=== PATIENT | female | born 1965 | race Caucasian/White ===

== ENCOUNTER 2021-10-19 09:42 | Emergency (ER) | payer OTHER ==
--- OUTSIDE RECORDS SUMMARY | 2021-10-19 09:57 | XMS REPORT | Continuity of Care Document ---
:1965 Author Organization [facility] t Address [address] [place] [address] Care Team Providers Name Role Phone AVILAAndrei Primary Care Physician Unavailable JAEL Attending Clinician Unavailable BRIGID Attending Clinician Unavailable Brigid ROSENTHAL Attending Clinician Pob, Lab Main Attending Clinician Unavailable Timmy Atwood DO Attending Clinician Doctor Unassigned, Name Attending Clinician Unavailable Vtc-Lab Attending Clinician Unavailable Mary Velez Attending Clinician Unavailable Blaire Attending Clinician Unavailable RODNEY ALCANTAR Attending Clinician Unavailable Joana SIMON Attending Clinician Unavailable Mary Velez Admitting Clinician Unavailable JAMEY GOMEZ Admitting Clinician Unavailable Joana SIMON Admitting Clinician Unavailable Payers Payer Name Policy Type Policy Number Effective Date Expiration Date S ource MEDICARE PART A [id number] 2017 \\T\\ B 00:00:00 MEDICAID [facility] [id number] 2021 00:00:00 [facility] [id number] 2020 PLUS 00:00:00 Problems Condition Condition Condition Status Onset Resolution Last Treating Co mments Source Name Details Category Date Date Treatment Clinician Date Problem No known ASSERTION [facility] ([place]) Allergies, Adverse Reactions, Alerts Allergy Allergy Status Severity Reaction(s) Onset Inactive Treating Comm ents Source Name Type Date Date Clinician No Known DA Active U 2020-[address] [facility] ([place] No Known DA Active U 2020-[address] [facility] [facility] No Known DA Active [facility] No Known DA Active U 2010- [facility] Mastisol Adverse Active Info Not [facility] Liquid Reaction Available [facility] NO KNOWN Drug Active Univers ALLERGIE Class ity of S [facility] Social History Social Habit Start Date Stop Date Quantity Comments Source Exposure to Not sure [facility]-CoV-2 [facility] (event) Branch Alcohol intake 2010-06-28 2010-06-28 [facility] non-drinker of [facility] alcohol Branch (finding) Sex Ass[birth year] At [birth year] Univers[facility] of 00:00:00 00:00:00 [facility] Smoking Status Start Date Stop Date Source Unknown if ever smoked [facility] Never smoker [facility] Medications Ordered Filled Start Stop Current Ordering Indication Dosage Frequency Signature Comments Components Source Medication Medication Date Date Medication? Clinician (SIG) Name Name levothyroxi Yes [id number] 25ug Take 1 Univers ne 25 mcg 4-29 tablet by ity o f tablet 00:00: mouth [place] 00 every Medical morning. Branch levothyroxi Yes [id number] 25ug Take 1 Univers ne 25 mcg 4-29 tablet by ity o f tablet 00:00: mouth [place] 00 every Medical morning. Branch levothyroxi Yes [id number] 25ug Take 1 Univers ne 25 mcg 4-29 tablet by ity o f tablet 00:00: mouth [place] 00 every Medical morning. Branch levothyroxi Yes [id number] 25ug Take 1 Univers ne 25 mcg 4-29 tablet by ity o f tablet 00:00: mouth [place] 00 every Medical morning. Branch levothyroxi 2020-0 Yes [id number] 25ug Take 1 Univers ne 25 mcg 4-29 tablet by ity o f tablet 00:00: mouth [place] 00 every Medical morning. Branch levothyroxi 2020-0 Yes [id number] 25ug Take 1 Univers ne 25 mcg 4-29 tablet by ity o f tablet 00:00: mouth [place] 00 every Medical morning. Branch levothyroxi 2020-0 Yes [id number] 25ug Take 1 Univers ne 25 mcg 4-29 tablet by ity o f tablet 00:00: mouth [place] 00 every Medical morning. Branch levothyroxi 2020-0 Yes [id number] 25ug Take 1 Univers ne 25 mcg 4-29 tablet by ity o f tablet 00:00: mouth [place] 00 every Medical morning. Branch levothyroxi 2020-0 Yes [id number] 25ug Take 1 Univers ne 25 mcg 4-29 tablet by ity o f tablet 00:00: mouth [place] 00 every Medical morning. Branch levothyroxi 2020-0 Yes [id number] 25ug Take 1 Univers ne 25 mcg 4-29 tablet by ity o f tablet 00:00: mouth [place] 00 every Medical morning. Branch levothyroxi 2020-0 Yes [id number] 25ug Take 1 Univers ne 25 mcg 4-29 tablet by ity o f tablet 00:00: mouth [place] 00 every Medical morning. Branch levothyroxi 2020-0 Yes [id number] 25ug Take 1 Univers ne 25 mcg 4-29 tablet by ity o f tablet 00:00: mouth [place] 00 every Medical morning. Branch levothyroxi 2020-0 Yes [id number] 25ug Take 1 Univers ne 25 mcg 4-29 tablet by ity o f tablet 00:00: mouth [place] 00 every Medical morning. Branch levothyroxi 2020-0 Yes [id number] 25ug Take 1 Univers ne 25 mcg 4-29 tablet by ity o f tablet 00:00: mouth [place] 00 every Medical morning. Branch levothyroxi 2020-0 Yes [id number] 25ug Take 1 Univers ne 25 mcg 4-29 tablet by ity o f tablet 00:00: mouth [place] 00 every Medical morning. Branch gadoteridol 2022020- No [id number] .2mL/kg 0.2 mL/kg, Univers (PROHANCE-1 03-22 Intravenou i ty of 5 mL) 14:00: 14:51 s, ONCE, 1 [place] injection 00 :00 dose, [facility] 0.2 mL/kg 03/22/21 at Bran ch 0900, Routine dexAMETHaso 2020- No [id number] 1mg Take 1 Univers ne 1 mg -16 03-17 tablet by ity of tablet 00:00: 04:59 mouth [place] :[place] now for 1 Medical dose. Take Branch at midnight before the tests ergocalcife Yes Take by Un ryder rol, 2-05 mouth. ity of vitamin D2, 20:31: [place] (VITAMIN D 12 Medical ORAL) [place] gabapentin Yes 600mg Take 600 Un ryder 600 mg 2-05 mg by ity of tablet 20:31: mouth. [address] hydrOXYzine Yes 50mg Take 50 mg Univers 50 mg 2-05 by mouth. ity of tablet 20:31: [address] FLUoxetine Yes 1{capsu Take 1 Un ryder 10 mg 2-05 le} capsule by ity of capsule 20:31: mouth. [address] carvediloL Yes 12.5mg Take 12.5 Univers 12.5 mg 2-05 mg by ity of tablet 20:31: mouth. [address] aspirin 81 Yes 81mg Take 81 mg U nivers mg EC 2-05 by mouth. ity of tablet 20:31: [address] hydroCHLORO Yes 1{tbl} Take 1 Un ryder thiazide 25 2-05 tablet by ity of mg tablet 20:31: mouth. [address] atorvastati Yes 40mg Take 40 mg Univers n 40 mg 2-05 by mouth. ity of tablet 20:31: [address] ergocalcife Yes Take by Un ryder rol, 2-05 mouth. ity of vitamin D2, 20:31: [place] (VITAMIN D 12 Medical ORAL) [place] methocarbam Yes 500mg Take 500 U nivers oL 500 mg 2-05 mg by ity of tablet 20:31: mouth. [address] methocarbam Yes 500mg Take 500 U nivers oL 500 mg 2-05 mg by ity of tablet 20:31: mouth. [address] gabapentin Yes 600mg Take 600 Un ryder 600 mg 2-05 mg by ity of tablet 20:31: mouth. [address] hydrOXYzine Yes 50mg Take 50 mg Univers 50 mg 2-05 by mouth. ity of tablet 20:31: [address] FLUoxetine Yes 1{capsu Take 1 Un ryder 10 mg 2-05 le} capsule by ity of capsule 20:31: mouth. [address] carvediloL Yes 12.5mg Take 12.5 Univers 12.5 mg 2-05 mg by ity of tablet 20:31: mouth. [address] aspirin 81 Yes 81mg Take 81 mg U nivers mg EC 2-05 by mouth. ity of tablet 20:31: [address] hydroCHLORO Yes 1{tbl} Take 1 Un ryder thiazide 25 2-05 tablet by ity of mg tablet 20:31: mouth. [address] atorvastati Yes 40mg Take 40 mg Univers n 40 mg 2-05 by mouth. ity of tablet 20:31: [address] ergocalcife Yes Take by Un ryder rol, 2-05 mouth. ity of vitamin D2, 20:31: [place] (VITAMIN D [address] [place] [address]) [place] methocarbam Yes 500mg Take 500 U nivers oL 500 mg 2-05 mg by ity of tablet 20:31: mouth. [address] gabapentin Yes 600mg Take 600 Un ryder 600 mg 2-05 mg by ity of tablet 20:31: mouth. [address] hydrOXYzine Yes 50mg Take 50 mg Univers 50 mg 2-05 by mouth. ity of tablet 20:31: [address] FLUoxetine Yes 1{capsu Take 1 Un ryder 10 mg 2-05 le} capsule by ity of capsule 20:31: mouth. [address] carvediloL Yes 12.5mg Take 12.5 Univers 12.5 mg 2-05 mg by ity of tablet 20:31: mouth. [address] aspirin 81 Yes 81mg Take 81 mg U nivers mg EC 2-05 by mouth. ity of tablet 20:31: [address] hydroCHLORO Yes 1{tbl} Take 1 Un [place] thiazide 25 2-05 tablet by ity of mg tablet 20:31: mouth. [address] atorvastati Yes 40mg Take 40 mg Univers n 40 mg 2-05 by mouth. ity of tablet 20:31: [address] ergocalcife Yes Take by Un ryder rol, 2-05 mouth. it[facility] vitamin D2, [facility]: [facility] [address] [place] [address] methocarbam Yes 500mg Take 500 U nivers oL 500 mg 2-05 mg by ity of tablet 20:31: mouth. [address] gabapentin Yes 600mg Take 600 Un ryder 600 mg 2-05 mg by ity of tablet 20:31: mouth. [address] hydrOXYzine Yes 50mg Take 50 mg Univers 50 mg 2-05 by mouth. ity of tablet 20:31: [address] FLUoxetine Yes 1{capsu Take 1 Un ryder 10 mg 2-05 le} capsule by ity of capsule 20:31: mouth. [address] carvediloL Yes 12.5mg Take 12.5 Univers 12.5 mg 2-05 mg by ity of tablet 20:31: mouth. [address] aspirin 81 Yes 81mg Take 81 mg U nivers mg EC 2-05 by mouth. ity of tablet 20:31: [address] hydroCHLORO Yes 1{tbl} Take 1 Un [facility] thiazide 25 2-05 tablet by ity of mg tablet 20:31: mouth. [address] atorvastati Yes 40mg Take 40 mg Univers n 40 mg 2-05 by mouth. ity of tablet 20:31: [address] ergocalcife Yes Take by Un ryder rol, 2-05 mouth. ity of vitamin D2, 20:31: [place] (VITAMIN D 12 Medical ORAL) [place] methocarbam Yes 500mg Take 500 U nivers oL 500 mg 2-05 mg by ity of tablet 20:31: mouth. [address] gabapentin Yes 600mg Take 600 Un ryder 600 mg 2-05 mg by ity of tablet 20:31: mouth. [address] hydrOXYzine Yes 50mg Take 50 mg Univers 50 mg 2-05 by mouth. ity of tablet 20:31: [address] FLUoxetine Yes 1{capsu Take 1 Un ryder 10 mg 2-05 le} capsule by ity of capsule 20:31: mouth. [address] carvediloL Yes 12.5mg Take 12.5 Univers 12.5 mg 2-05 mg by ity of tablet 20:31: mouth. [address] aspirin 81 Yes 81mg Take 81 mg U nivers mg EC 2-05 by mouth. ity of tablet 20:31: [address] hydroCHLORO Yes 1{tbl} Take 1 Un [facility] thiazide 25 2-05 tablet by ity of mg tablet 20:31: mouth. [address] atorvastati Yes 40mg Take 40 mg Univers n 40 mg 2-05 by mouth. ity of tablet 20:31: [address] ergocalcife Yes Take by Un ryder rol, 2-05 mouth. ity of vitamin D2, 20:31: [place] (VITAMIN D 12 Medical ORAL) [place] methocarbam Yes 500mg Take 500 U nivers oL 500 mg 2-05 mg by ity of tablet 20:31: mouth. [address] gabapentin Yes 600mg Take 600 Un ryder 600 mg 2-05 mg by ity of tablet 20:31: mouth. [address] hydrOXYzine Yes 50mg Take 50 mg Univers 50 mg 2-05 by mouth. ity of tablet 20:31: [address] FLUoxetine Yes 1{capsu Take 1 Un ryder 10 mg 2-05 le} capsule by ity of capsule 20:31: mouth. [address] carvediloL Yes 12.5mg Take 12.5 Univers 12.5 mg 2-05 mg by ity of tablet 20:31: mouth. [address] aspirin 81 Yes 81mg Take 81 mg U nivers mg EC 2-05 by mouth. ity of tablet 20:31: [address] hydroCHLORO Yes 1{tbl} Take 1 Un [facility] thiazide 25 2-05 tablet by ity of mg tablet 20:31: mouth. [address] atorvastati Yes 40mg Take 40 mg Univers n 40 mg 2-05 by mouth. ity of tablet 20:31: [address] ergocalcife Yes Take by Un ryder rol, 2-05 mouth. ity of vitamin D2, 20:31: [facility] [address] [place] [address] methocarbam Yes 500mg Take 500 U nivers oL 500 mg 2-05 mg by ity of tablet 20:31: mouth. [address] gabapentin Yes 600mg Take 600 Un ryder 600 mg 2-05 mg by ity of tablet 20:31: mouth. [address] hydrOXYzine Yes 50mg Take 50 mg Univers 50 mg 2-05 by mouth. ity of tablet 20:31: [address] FLUoxetine Yes 1{capsu Take 1 Un ryder 10 mg 2-05 le} capsule by ity of capsule 20:31: mouth. [address] carvediloL Yes 12.5mg Take 12.5 Univers 12.5 mg 2-05 mg by ity of tablet 20:31: mouth. [address] aspirin 81 Yes 81mg Take 81 mg U nivers mg EC 2-05 by mouth. ity of tablet 20:31: [address] hydroCHLORO Yes 1{tbl} Take 1 Un ryder thiazide 25 2-05 tablet by ity of mg tablet 20:31: mouth. [address] atorvastati Yes 40mg Take 40 mg Univers n 40 mg 2-05 by mouth. ity of tablet 20:31: [address] ergocalcife Yes Take by Un ryder rol, 2-05 mouth. ity of vitamin D2, 20:31: [place] (VITAMIN D 12 Medical ORAL) [place] methocarbam Yes 500mg Take 500 U nivers oL 500 mg 2-05 mg by ity of tablet 20:31: mouth. [address] gabapentin Yes 600mg Take 600 Un ryder 600 mg 2-05 mg by ity of tablet 20:31: mouth. [address] hydrOXYzine Yes 50mg Take 50 mg Univers 50 mg 2-05 by mouth. ity of tablet 20:31: [address] FLUoxetine Yes 1{capsu Take 1 Un ryder 10 mg 2-05 le} capsule by ity of capsule 20:31: mouth. [address] carvediloL Yes 12.5mg Take 12.5 Univers 12.5 mg 2-05 mg by ity of tablet 20:31: mouth. [address] aspirin 81 Yes 81mg Take 81 mg U nivers mg EC 2-05 by mouth. ity of tablet 20:31: [address] hydroCHLORO Yes 1{tbl} Take 1 Un ryder thiazide 25 2-05 tablet by ity of mg tablet 20:31: mouth. [address] atorvastati Yes 40mg Take 40 mg Univers n 40 mg 2-05 by mouth. ity of tablet 20:31: [address] ergocalcife Yes Take by Un ryder rol, 2-05 mouth. ity of vitamin D2, 20:31: [place] (VITAMIN D 12 Medical ORAL) [place] methocarbam Yes 500mg Take 500 U nivers oL 500 mg 2-05 mg by ity of tablet 20:31: mouth. [address] gabapentin Yes 600mg Take 600 Un ryder 600 mg 2-05 mg by ity of tablet 20:31: mouth. [address] hydrOXYzine Yes 50mg Take 50 mg Univers 50 mg 2-05 by mouth. ity of tablet 20:31: [address] FLUoxetine Yes 1{capsu Take 1 Un ryder 10 mg 2-05 le} capsule by ity of capsule 20:31: mouth. [address] carvediloL Yes 12.5mg Take 12.5 Univers 12.5 mg 2-05 mg by ity of tablet 20:31: mouth. [address] aspirin 81 Yes 81mg Take 81 mg U nivers mg EC 2-05 by mouth. ity of tablet 20:31: [address] hydroCHLORO Yes 1{tbl} Take 1 Un ryder thiazide 25 2-05 tablet by ity of mg tablet 20:31: mouth. [address] atorvastati Yes 40mg Take 40 mg Univers n 40 mg 2-05 by mouth. ity of tablet 20:31: [address] ergocalcife Yes Take by Un ryder rol, 2-05 mouth. ity of vitamin D2, 20:31: [facility] [address] [place] [address] methocarbam Yes 500mg Take 500 U nivers oL 500 mg 2-05 mg by ity of tablet 20:31: mouth. [address] gabapentin Yes 600mg Take 600 Un ryder 600 mg 2-05 mg by ity of tablet 20:31: mouth. [address] hydrOXYzine Yes 50mg Take 50 mg Univers 50 mg 2-05 by mouth. ity of tablet 20:31: [address] FLUoxetine Yes 1{capsu Take 1 Un ryder 10 mg 2-05 le} capsule by ity of capsule 20:31: mouth. [address] carvediloL Yes 12.5mg Take 12.5 Univers 12.5 mg 2-05 mg by ity of tablet 20:31: mouth. [address] aspirin 81 Yes 81mg Take 81 mg U nivers mg EC 2-05 by mouth. ity of tablet 20:31: [address] hydroCHLORO Yes 1{tbl} Take 1 Un ryder thiazide 25 2-05 tablet by ity of mg tablet 20:31: mouth. [address] atorvastati Yes 40mg Take 40 mg Univers n 40 mg 2-05 by mouth. ity of tablet 20:31: [address] ergocalcife Yes Take by Un ryder rol, 2-05 mouth. ity of vitamin D2, 20:31: [place] (VITAMIN D 12 Medical ORAL) [place] methocarbam Yes 500mg Take 500 U nivers oL 500 mg 2-05 mg by ity of tablet 20:31: mouth. [address] gabapentin Yes 600mg Take 600 Un ryder 600 mg 2-05 mg by ity of tablet 20:31: mouth. [address] hydrOXYzine Yes 50mg Take 50 mg Univers 50 mg 2-05 by mouth. ity of tablet 20:31: [address] FLUoxetine Yes 1{capsu Take 1 Un ryder 10 mg 2-05 le} capsule by ity of capsule 20:31: mouth. [address] carvediloL Yes 12.5mg Take 12.5 Univers 12.5 mg 2-05 mg by ity of tablet 20:31: mouth. [address] aspirin 81 Yes 81mg Take 81 mg U nivers mg EC 2-05 by mouth. ity of tablet 20:31: [address] hydroCHLORO Yes 1{tbl} Take 1 Un ryder thiazide 25 2-05 tablet by ity of mg tablet 20:31: mouth. [address] atorvastati Yes 40mg Take 40 mg Univers n 40 mg 2-05 by mouth. ity of tablet 20:31: [address] ergocalcife Yes Take by Un ryder rol, 2-05 mouth. ity of vitamin D2, 20:31: [place] (VITAMIN D 12 Medical ORAL) [place] methocarbam Yes 500mg Take 500 U nivers oL 500 mg 2-05 mg by ity of tablet 20:31: mouth. [address] gabapentin Yes 600mg Take 600 Un ryder 600 mg 2-05 mg by ity of tablet 20:31: mouth. [address] hydrOXYzine Yes 50mg Take 50 mg Univers 50 mg 2-05 by mouth. ity of tablet 20:31: [address] FLUoxetine Yes 1{capsu Take 1 Un ryder 10 mg 2-05 le} capsule by ity of capsule 20:31: mouth. [address] carvediloL Yes 12.5mg Take 12.5 Univers 12.5 mg 2-05 mg by ity of tablet 20:31: mouth. [address] aspirin 81 0 Yes 81mg Take 81 mg U nivers mg EC 2-05 by mouth. ity of tablet 20:31: [address] hydroCHLORO Yes 1{tbl} Take 1 Un [facility] thiazide 25 2-05 tablet by ity of mg tablet 20:31: mouth. [address] atorvastati Yes 40mg Take 40 mg Univers n 40 mg 2-05 by mouth. ity of tablet 20:31: [address] ergocalcife Yes Take by Un ryder rol, 2-05 mouth. ity of vitamin D2, 20:31: [facility] [address] [place] [address] methocarbam Yes 500mg Take 500 U nivers oL 500 mg 2-05 mg by ity of tablet 20:31: mouth. [address] gabapentin Yes 600mg Take 600 Un ryder 600 mg 2-05 mg by ity of tablet 20:31: mouth. [address] hydrOXYzine Yes 50mg Take 50 mg Univers 50 mg 2-05 by mouth. ity of tablet 20:31: [address] FLUoxetine Yes 1{capsu Take 1 Un ryder 10 mg 2-05 le} capsule by ity of capsule 20:31: mouth. [address] carvediloL Yes 12.5mg Take 12.5 Univers 12.5 mg 2-05 mg by ity of tablet 20:31: mouth. [address] aspirin 81 Yes 81mg Take 81 mg U nivers mg EC 2-05 by mouth. ity of tablet 20:31: [address] hydroCHLORO Yes 1{tbl} Take 1 Un [facility] thiazide 25 2-05 tablet by ity of mg tablet 20:31: mouth. [address] atorvastati Yes 40mg Take 40 mg Univers n 40 mg 2-05 by mouth. ity of tablet 20:31: [address] ergocalcife Yes Take by Un ryder rol, 2-05 mouth. ity of vitamin D2, 20:31: [place] (VITAMIN D 12 Medical ORAL) [place] methocarbam Yes 500mg Take 500 U nivers oL 500 mg 2-05 mg by ity of tablet 20:31: mouth. [address] gabapentin Yes 600mg Take 600 Un ryder 600 mg 2-05 mg by ity of tablet 20:31: mouth. [address] hydrOXYzine Yes 50mg Take 50 mg Univers 50 mg 2-05 by mouth. ity of tablet 20:31: [address] FLUoxetine Yes 1{capsu Take 1 Un ryder 10 mg 2-05 le} capsule by ity of capsule 20:31: mouth. [address] carvediloL Yes 12.5mg Take 12.5 Univers 12.5 mg 2-05 mg by ity of tablet 20:31: mouth. [address] aspirin 81 Yes 81mg Take 81 mg U nivers mg EC 2-05 by mouth. ity of tablet 20:31: [address] hydroCHLORO Yes 1{tbl} Take 1 Un [facility] thiazide 25 2-05 tablet by ity of mg tablet 20:31: mouth. [address] atorvastati Yes 40mg Take 40 mg Univers n 40 mg 2-05 by mouth. ity of tablet 20:31: [address] ergocalcife Yes Take by Un ryder rol, 2-05 mouth. ity of vitamin D2, 20:31: [place] (VITAMIN D 12 Medical ORAL) [place] methocarbam Yes 500mg Take 500 U nivers oL 500 mg 2-05 mg by ity of tablet 20:31: mouth. [address] gabapentin Yes 600mg Take 600 Un ryder 600 mg 2-05 mg by ity of tablet 20:31: mouth. [address] hydrOXYzine Yes 50mg Take 50 mg Univers 50 mg 2-05 by mouth. ity of tablet 20:31: [address] FLUoxetine Yes 1{capsu Take 1 Un ryder 10 mg 2-05 le} capsule by ity of capsule 20:31: mouth. [address] carvediloL Yes 12.5mg Take 12.5 Univers 12.5 mg 2-05 mg by ity of tablet 20:31: mouth. [address] aspirin 81 Yes 81mg Take 81 mg U nivers mg EC 2-05 by mouth. ity of tablet 20:31: [address] hydroCHLORO Yes 1{tbl} Take 1 Un [facility] thiazide 25 2-05 tablet by ity of mg tablet 20:31: mouth. [address] atorvastati Yes 40mg Take 40 mg Univers n 40 mg 2-05 by mouth. ity of tablet 20:31: [address] ergocalcife Yes Take by Un ryder rol, 2-05 mouth. ity of vitamin D2, 20:31: [facility] [address] [place] [address] methocarbam Yes 500mg Take 500 U nivers oL 500 mg 2-05 mg by ity of tablet 20:31: mouth. [address] gabapentin Yes 600mg Take 600 Un ryder 600 mg 2-05 mg by ity of tablet 20:31: mouth. [address] hydrOXYzine Yes 50mg Take 50 mg Univers 50 mg 2-05 by mouth. ity of tablet 20:31: [address] FLUoxetine Yes 1{capsu Take 1 Un ryder 10 mg 2-05 le} capsule by ity of capsule 20:31: mouth. [address] carvediloL Yes 12.5mg Take 12.5 Univers 12.5 mg 2-05 mg by ity of tablet 20:31: mouth. [address] aspirin 81 Yes 81mg Take 81 mg U nivers mg EC 2-05 by mouth. ity of tablet 20:31: [address] hydroCHLORO Yes 1{tbl} Take 1 Un [place] thiazide 25 2-05 tablet by ity of mg tablet 20:31: mouth. [address] atorvastati Yes 40mg Take 40 mg Univers n 40 mg 2-05 by mouth. ity of tablet 20:31: [address] ergocalcife Yes Take by Un ryder rol, 2-05 mouth. ity of vitamin D2, 20:31: [place] (VITAMIN D 12 Medical ORAL) [place] methocarbam Yes 500mg Take 500 U nivers oL 500 mg 2-05 mg by ity of tablet 20:31: mouth. [address] gabapentin Yes 600mg Take 600 Un ryder 600 mg 2-05 mg by ity of tablet 20:31: mouth. [address] hydrOXYzine Yes 50mg Take 50 mg Univers 50 mg 2-05 by mouth. ity of tablet 20:31: [address] FLUoxetine Yes 1{capsu Take 1 Un ryder 10 mg 2-05 le} capsule by ity of capsule 20:31: mouth. [address] carvediloL Yes 12.5mg Take 12.5 Univers 12.5 mg 2-05 mg by ity of tablet 20:31: mouth. [address] aspirin 81 Yes 81mg Take 81 mg U nivers mg EC 2-05 by mouth. ity of tablet 20:31: [address] hydroCHLORO Yes 1{tbl} Take 1 [place] thiazide 25 2-05 tablet by ity of mg tablet 20:31: mouth. [address] atorvastati Yes 40mg Take 40 mg Univers n 40 mg 2-05 by mouth. ity of tablet 20:31: [address] ergocalcife Yes Take by Un ryder rol, 2-05 mouth. ity of vitamin D2, 20:31: [place] (VITAMIN D 12 Medical ORAL) [place] methocarbam Yes 500mg Take 500 U nivers oL 500 mg 2-05 mg by ity of tablet 20:31: mouth. [address] gabapentin Yes 600mg Take 600 Un ryder 600 mg 2-05 mg by ity of tablet 20:31: mouth. [address] hydrOXYzine Yes 50mg Take 50 mg Univers 50 mg 2-05 by mouth. ity of tablet 20:31: [address] FLUoxetine Yes 1{capsu Take 1 Un ryder 10 mg 2-05 le} capsule by ity of capsule 20:31: mouth. [address] carvediloL Yes 12.5mg Take 12.5 Univers 12.5 mg 2-05 mg by ity of tablet 20:31: mouth. [address] aspirin 81 Yes 81mg Take 81 mg U nivers mg EC 2-05 by mouth. ity of tablet 20:31: [address] hydroCHLORO Yes 1{tbl} Take 1 Un [facility] thiazide 25 2-05 tablet by ity of mg tablet 20:31: mouth. [address] atorvastati Yes 40mg Take 40 mg Univers n 40 mg 2-05 by mouth. ity of tablet 20:31: [address] ergocalcife Yes Take by Un ryder rol, 2-05 mouth. ity of vitamin D2, 20:31: [facility] [address] [place] [address]) [place] methocarbam Yes 500mg Take 500 U nivers oL 500 mg 2-05 mg by ity of tablet 20:31: mouth. [address] gabapentin Yes 600mg Take 600 Un ryder 600 mg 2-05 mg by ity of tablet 20:31: mouth. [address] hydrOXYzine Yes 50mg Take 50 mg Univers 50 mg 2-05 by mouth. ity of tablet 20:31: [address] FLUoxetine Yes 1{capsu Take 1 Un ryder 10 mg 2-05 le} capsule by ity of capsule 20:31: mouth. [address] carvediloL Yes 12.5mg Take 12.5 Univers 12.5 mg 2-05 mg by ity of tablet 20:31: mouth. [address] aspirin 81 Yes 81mg Take 81 mg U nivers mg EC 2-05 by mouth. ity of tablet 20:31: [address] hydroCHLORO Yes 1{tbl} Take 1 Un [facility] thiazide 25 2-05 tablet by ity of mg tablet 20:31: mouth. [address] atorvastati Yes 40mg Take 40 mg Univers n 40 mg 2-05 by mouth. ity of tablet 20:31: [address] ergocalcife Yes Take by Un ryder rol, 2-05 mouth. ity of vitamin D2, 20:31: [place] (VITAMIN D 12 Medical ORAL) [place] methocarbam Yes 500mg Take 500 U nivers oL 500 mg 2-05 mg by ity of tablet 20:31: mouth. [address] gabapentin Yes 600mg Take 600 Un ryder 600 mg 2-05 mg by ity of tablet 20:31: mouth. [address] hydrOXYzine 0 Yes 50mg Take 50 mg [facility] 50 mg 2-05 by mouth. ity of tablet 20:31: [address] FLUoxetine Yes 1{capsu Take 1 Un ryder 10 mg 2-05 le} capsule by ity of capsule 20:31: mouth. [address] carvediloL Yes 12.5mg Take 12.5 [facility] 12.5 mg 2-05 mg by ity of tablet 20:31: mouth. [address] aspirin 81 0 Yes 81mg Take 81 mg U nivers mg EC 2-05 by mouth. ity of tablet 20:31: [address] hydroCHLORO Yes 1{tbl} Take 1 Un ryder thiazide 25 2-05 tablet by ity of mg tablet 20:31: mouth. [address] atorvastati Yes 40mg Take 40 mg [facility] n 40 mg 2-05 by mouth. ity of tablet 20:31: [address] ergocalcife Yes Take by Un ryder rol, 2-05 mouth. ity of vitamin D2, 20:31: [place] (VITAMIN D 12 Medical ORAL) [place] methocarbam Yes 500mg Take 500 U nivers oL 500 mg 2-05 mg by ity of tablet 20:31: mouth. [address] gabapentin 0 Yes 600mg Take 600 Un ryder 600 mg 2-05 mg by ity of tablet 20:31: mouth. [address] hydrOXYzine Yes 50mg Take 50 mg [facility] 50 mg 2-05 by mouth. ity of tablet 20:31: [address] gabapentin 2021-0 Yes 600mg Take 600 Un ryder 600 mg 2-05 mg by ity of tablet 20:31: mouth. [address] hydrOXYzine Yes 50mg Take 50 mg [facility] 50 mg 2-05 by mouth. ity of tablet 20:31: [address] FLUoxetine Yes 1{capsu Take 1 Un ryder 10 mg 2-05 le} capsule by ity of capsule 20:31: mouth. [address] carvediloL Yes 12.5mg Take 12.5 [facility] 12.5 mg 2-05 mg by ity of tablet 20:31: mouth. [address] aspirin 81 Yes 81mg Take 81 mg U nivers mg EC 2-05 by mouth. ity of tablet 20:31: [address] hydroCHLORO Yes 1{tbl} Take 1 Un ryder thiazide 25 2-05 tablet by ity of mg tablet 20:31: mouth. [address] FLUoxetine Yes 1{capsu Take 1 Un ryder 10 mg 2-05 le} capsule by ity of capsule 20:31: mouth. [address] atorvastati Yes 40mg Take 40 mg [facility] n 40 mg 2-05 by mouth. ity of tablet 20:31: [address] ergocalcife Yes Take by Un ryder rol, 2-05 mouth. it[facility] vitamin D2, [facility] [address] [place] [address] methocarbam Yes 500mg Take 500 U nivers oL 500 mg 2-05 mg by ity of tablet 20:31: mouth. [address] carvediloL Yes 12.5mg Take 12.5 [facility] 12.5 mg 2-05 mg by ity of tablet 20:31: mouth. [address] gabapentin Yes 600mg Take 600 Un ryder 600 mg 2-05 mg by ity of tablet 20:31: mouth. [address] hydrOXYzine Yes 50mg Take 50 mg [facility] 50 mg 2-05 by mouth. ity of tablet 20:31: [address] FLUoxetine Yes 1{capsu Take 1 Un ryder 10 mg 2-05 le} capsule by ity of capsule 20:31: mouth. [address] carvediloL Yes 12.5mg Take 12.5 [facility] 12.5 mg 2-05 mg by ity of tablet 20:31: mouth. [address] aspirin 81 0 Yes 81mg Take 81 mg U nivers mg EC 2-05 by mouth. ity of tablet 20:31: [address] hydroCHLORO Yes 1{tbl} Take 1 Un [facility] thiazide 25 2-05 tablet by ity of mg tablet 20:31: mouth. [address] atorvastati Yes 40mg Take 40 mg [facility] n 40 mg 2-05 by mouth. ity of tablet 20:31: [address] ergocalcife Yes Take by Un ryder rol, 2-05 mouth. ity of vitamin D2, 20:31: [facility] [address] [place] [address] aspirin 81 Yes 81mg Take 81 mg U nivers mg EC 2-05 by mouth. ity of tablet 20:31: [address] methocarbam Yes 500mg Take 500 U nivers oL 500 mg 2-05 mg by ity of tablet 20:31: mouth. [address] hydroCHLORO Yes 1{tbl} Take 1 Un [facility] thiazide 25 2-05 tablet by ity of mg tablet 20:31: mouth. [address] gabapentin Yes 600mg Take 600 Un ryder 600 mg 2-05 mg by ity of tablet 20:31: mouth. [address] hydrOXYzine Yes 50mg Take 50 mg [facility] 50 mg 2-05 by mouth. ity of tablet 20:31: [address] FLUoxetine Yes 1{capsu Take 1 Un ryder 10 mg 2-05 le} capsule by ity of capsule 20:31: mouth. [address] carvediloL Yes 12.5mg Take 12.5 [facility] 12.5 mg 2-05 mg by ity of tablet 20:31: mouth. [address] atorvastati Yes 40mg Take 40 mg [facility] n 40 mg 2-05 by mouth. ity of tablet 20:31: [address] aspirin 81 Yes 81mg Take 81 mg U nivers mg EC 2-05 by mouth. ity of tablet 20:31: [address] hydroCHLORO Yes 1{tbl} Take 1 Un [facility] thiazide 25 2-05 tablet by ity of mg tablet 20:31: mouth. [address] atorvastati Yes 40mg Take 40 mg [facility] n 40 mg 2-05 by mouth. ity of tablet 20:31: [address] ergocalcife Yes Take by Un ryder rol, 2-05 mouth. ity of vitamin D2, 20:31: [place] (VITAMIN D 12 Medical ORAL) [place] methocarbam Yes 500mg Take 500 U nivers oL 500 mg 2-05 mg by ity of tablet 20:31: mouth. [address] gabapentin Yes 600mg Take 600 Un ryder 600 mg 2-05 mg by ity of tablet 14:31: mouth. [address] hydrOXYzine Yes 50mg Take 50 mg [facility] 50 mg 2-05 by mouth. ity of tablet 14:31: [address] FLUoxetine Yes 1{capsu Take 1 Un ryder 10 mg 2-05 le} capsule by ity of capsule 14:31: mouth. [address] carvediloL Yes 12.5mg Take 12.5 [facility] 12.5 mg 2-05 mg by ity of tablet 14:31: mouth. [address] aspirin 81 Yes 81mg Take 81 mg U nivers mg EC 2-05 by mouth. ity of tablet 14:31: [address] hydroCHLORO Yes 1{tbl} Take 1 Un [facility] thiazide 25 2-05 tablet by ity of mg tablet 14:31: mouth. [address] atorvastati Yes 40mg Take 40 mg [facility] n 40 mg 2-05 by mouth. ity of tablet 14:31: [address] ergocalcife Yes Take by Un ryder rol, 2-05 mouth. ity of vitamin D2, 14:31: [place] (VITAMIN D 12 Medical ORAL) [place] methocarbam Yes 500mg Take 500 U nivers oL 500 mg 2-05 mg by ity of tablet 14:31: mouth. [address] gabapentin Yes 600mg Take 600 Un ryder 600 mg 2-05 mg by ity of tablet 14:31: mouth. [address] hydrOXYzine Yes 50mg Take 50 mg [facility] 50 mg 2-05 by mouth. ity of tablet 14:31: [address] FLUoxetine Yes 1{capsu Take 1 Un ryder 10 mg 2-05 le} capsule by ity of capsule 14:31: mouth. [address] carvediloL Yes 12.5mg Take 12.5 [facility] 12.5 mg 2-05 mg by ity of tablet 14:31: mouth. [address] aspirin 81 Yes 81mg Take 81 mg U nivers mg EC 2-05 by mouth. ity of tablet 14:31: [address] hydroCHLORO Yes 1{tbl} Take 1 Un [facility] thiazide 25 2-05 tablet by ity of mg tablet 14:31: mouth. [address] atorvastati Yes 40mg Take 40 mg [facility] n 40 mg 2-05 by mouth. ity of tablet 14:31: [address] ergocalcife Yes Take by Un ryder rol, 2-05 mouth. ity of vitamin D2, 14:31: [facility] [address] [place] [address] methocarbam Yes 500mg Take 500 U nivers oL 500 mg 2-05 mg by ity of tablet 14:31: mouth. [address] gabapentin Yes 600mg Take 600 Un ryder 600 mg 2-05 mg by ity of tablet 14:31: mouth. [address] hydrOXYzine Yes 50mg Take 50 mg [facility] 50 mg 2-05 by mouth. ity of tablet 14:31: [address] FLUoxetine Yes 1{capsu Take 1 Un ryder 10 mg 2-05 le} capsule by ity of capsule 14:31: mouth. [address] carvediloL Yes 12.5mg Take 12.5 [facility] 12.5 mg 2-05 mg by ity of tablet 14:31: mouth. [address] aspirin 81 Yes 81mg Take 81 mg U nivers mg EC 2-05 by mouth. ity of tablet 14:31: [address] hydroCHLORO Yes 1{tbl} Take 1 Un [facility] thiazide 25 2-05 tablet by ity of mg tablet 14:31: mouth. [address] atorvastati Yes 40mg Take 40 mg [facility] n 40 mg 2-05 by mouth. ity of tablet 14:31: [address] ergocalcife Yes Take by Un ryder rol, 2-05 mouth. ity of vitamin D2, 14:31: [place] (VITAMIN D 12 Medical ORAL) [place] methocarbam Yes 500mg Take 500 U nivers oL 500 mg 2-05 mg by ity of tablet 14:31: mouth. [address] gabapentin Yes 600mg Take 600 Un ryder 600 mg 2-05 mg by ity of tablet 14:31: mouth. [address] hydrOXYzine Yes 50mg Take 50 mg [facility] 50 mg 2-05 by mouth. ity of tablet 14:31: [address] FLUoxetine Yes 1{capsu Take 1 Un ryder 10 mg 2-05 le} capsule by ity of capsule 14:31: mouth. [address] carvediloL Yes 12.5mg Take 12.5 [facility] 12.5 mg 2-05 mg by ity of tablet 14:31: mouth. [address] aspirin 81 Yes 81mg Take 81 mg U nivers mg EC 2-05 by mouth. ity of tablet 14:31: [address] hydroCHLORO Yes 1{tbl} Take 1 Un ry[facility] thiazide 25 2-05 tablet by ity of mg tablet 14:31: mouth. [address] atorvastati Yes 40mg Take 40 mg [facility] n 40 mg 2-05 by mouth. ity of tablet 14:31: [address] ergocalcife Yes Take by Un ryder rol, 2-05 mouth. ity of vitamin D2, 14:31: [place] (VITAMIN D 12 Medical ORAL) [place] methocarbam 2021-0 Yes 500mg Take 500 U nivers oL 500 mg 2-05 mg by ity of tablet 14:31: mouth. [address] sodium 2020-0 2020- No 200uCi 200 [facility] iodide I 12-11 microcurie ity of 123 oral 14:45: 14:25 , Oral, [place] capsule 200 00 :00 ONCE, 1 Medic al microcurie dose, Mon Bran ch 12/11/20 at 0845, Routine gabapentin 2019-12 Yes 600mg Take 600 Un ryder 600 mg 0-02 mg by ity of tablet 19:15: mouth. [address] hydrOXYzine 2019-12 Yes 50mg Take 50 mg [facility] 50 mg 0-02 by mouth. ity of tablet 19:15: [address] FLUoxetine 2019-12 Yes 1{capsu Take 1 Un ryder 10 mg 0-02 le} capsule by ity of capsule 19:15: mouth. [address] carvediloL 2019-12 Yes 12.5mg Take 12.5 [facility] 12.5 mg 0-02 mg by ity of tablet 19:15: mouth. [address] aspirin 81 2019-12 Yes 81mg Take 81 mg U nivers mg EC 0-02 by mouth. ity of tablet 19:15: [address] hydroCHLORO 2019-12 Yes 1{tbl} Take 1 Un ry[facility] thiazide 25 0-02 tablet by ity of mg tablet 19:15: mouth. [address] atorvastati 2019-12 Yes 40mg Take 40 mg [facility] n 40 mg 0-02 by mouth. ity of tablet 19:15: [address] ergocalcife 2019-12 Yes Take by Un ryder rol, 0-02 mouth. ity of vitamin D2, 19:15: [facility] [address] [place] [address]) [place] methocarbam 2019-12 Yes 500mg Take 500 U nivers oL 500 mg 0-02 mg by ity of tablet 19:15: mouth. [address] gabapentin 2019-12 Yes 600mg Take 600 Un ryder 600 mg 0-02 mg by ity of tablet 19:15: mouth. [address] hydrOXYzine 2019-12 Yes 50mg Take 50 mg [facility] 50 mg 0-02 by mouth. ity of tablet 19:15: [address] FLUoxetine 2019-12 Yes 1{capsu Take 1 Un ryder 10 mg 0-02 le} capsule by ity of capsule 19:15: mouth. [address] carvediloL 2019-12 Yes 12.5mg Take 12.5 [facility] 12.5 mg 0-02 mg by ity of tablet 19:15: mouth. [address] aspirin 81 2019-12 Yes 81mg Take 81 mg U nivers mg EC 0-02 by mouth. ity of tablet 19:15: [address] hydroCHLORO 2019-12 Yes 1{tbl} Take 1 Un ry[facility] thiazide 25 0-02 tablet by ity of mg tablet 19:15: mouth. [address] atorvastati 2019-12 Yes 40mg Take 40 mg [facility] n 40 mg 0-02 by mouth. ity of tablet 19:15: [address] ergocalcife 2019-12 Yes Take by Un ryder rol, 0-02 mouth. ity of vitamin D2, 19:15: [facility] [address] [place] [address] methocarbam 2019-12 Yes 500mg Take 500 U nivers oL 500 mg 0-02 mg by ity of tablet 19:15: mouth. [address] gabapentin 2019-12 Yes 600mg Take 600 Un ryder 600 mg 0-02 mg by ity of tablet 19:15: mouth. [address] hydrOXYzine 2019-12 Yes 50mg Take 50 mg [facility] 50 mg 0-02 by mouth. ity of tablet 19:15: [address] FLUoxetine 2019-12 Yes 1{capsu Take 1 Un ryder 10 mg 0-02 le} capsule by ity of capsule 19:15: mouth. [address] carvediloL 2019-12 Yes 12.5mg Take 12.5 [facility] 12.5 mg 0-02 mg by ity of tablet 19:15: mouth. [address] aspirin 81 2019-12 Yes 81mg Take 81 mg U nivers mg EC 0-02 by mouth. ity of tablet 19:15: [address] hydroCHLORO 2019-12 Yes 1{tbl} Take 1 Un ry[facility] thiazide 25 0-02 tablet by ity of mg tablet 19:15: mouth. [address] atorvastati 2019-12 Yes 40mg Take 40 mg [facility] n 40 mg 0-02 by mouth. ity of tablet 19:15: [address] ergocalcife 2019-12 Yes Take by Un ryder rol, 0-02 mouth. ity of vitamin D2, 19:15: [place] (VITAMIN D Medical ORAL) [place] methocarbam 2019-12 Yes 500mg Take 500 U nivers oL 500 mg 0-02 mg by ity of tablet 19:15: mouth. [address] gabapentin 2019-12 Yes 600mg Take 600 Un ryder 600 mg 0-02 mg by ity of tablet 19:15: mouth. [address] hydrOXYzine 2019-12 Yes 50mg Take 50 mg [facility] 50 mg 0-02 by mouth. ity of tablet 19:15: [address] FLUoxetine 2019-12 Yes 1{capsu Take 1 Un ryder 10 mg 0-02 le} capsule by ity of capsule 19:15: mouth. [address] carvediloL 2019-12 Yes 12.5mg Take 12.5 [facility] 12.5 mg 0-02 mg by ity of tablet 19:15: mouth. [address] aspirin 81 2019-12 Yes 81mg Take 81 mg U nivers mg EC 0-02 by mouth. ity of tablet 19:15: [address] hydroCHLORO 2019-12 Yes 1{tbl} Take 1 Un [facility] thiazide 25 0-02 tablet by ity of mg tablet 19:15: mouth. [address] atorvastati 2019-12 Yes 40mg Take 40 mg [facility] n 40 mg 0-02 by mouth. ity of tablet 19:15: [address] ergocalcife 2019-12 Yes Take by Un ryder rol, 0-02 mouth. ity of vitamin D2, 19:15: [place] (VITAMIN D Medical ORAL) [place] methocarbam 2019-12 Yes 500mg Take 500 U nivers oL 500 mg 0-02 mg by ity of tablet 19:15: mouth. [address] gabapentin 2019-12 Yes 600mg Take 600 Un ryder 600 mg 0-02 mg by ity of tablet 19:15: mouth. [address] hydrOXYzine 2019-12 Yes 50mg Take 50 mg [facility] 50 mg 0-02 by mouth. ity of tablet 19:15: [address] FLUoxetine 2019-12 Yes 1{capsu Take 1 Un ryder 10 mg 0-02 le} capsule by ity of capsule 19:15: mouth. [address] carvediloL 2019-12 Yes 12.5mg Take 12.5 [facility] 12.5 mg 0-02 mg by ity of tablet 19:15: mouth. [address] aspirin 81 2019-12 Yes 81mg Take 81 mg U nivers mg EC 0-02 by mouth. ity of tablet 19:15: [address] hydroCHLORO 2019-12 Yes 1{tbl} Take 1 Un [facility] thiazide 25 0-02 tablet by ity of mg tablet 19:15: mouth. [address] atorvastati 2019-12 Yes 40mg Take 40 mg [facility] n 40 mg 0-02 by mouth. ity of tablet 19:15: [address] ergocalcife 2019-12 Yes Take by Un ryder rol, 0-02 mouth. ity of vitamin D2, 19:15: [facility] [address] [place] [address] methocarbam 2019-12 Yes 500mg Take 500 U nivers oL 500 mg 0-02 mg by ity of tablet 19:15: mouth. [address] gabapentin 2019-12 Yes 600mg Take 600 Un ryder 600 mg 0-02 mg by ity of tablet 19:15: mouth. [address] hydrOXYzine 2019-12 Yes 50mg Take 50 mg [facility] 50 mg 0-02 by mouth. ity of tablet 19:15: [address] FLUoxetine 2019-12 Yes 1{capsu Take 1 Un ryder 10 mg 0-02 le} capsule by ity of capsule 19:15: mouth. [address] carvediloL 2019-12 Yes 12.5mg Take 12.5 [facility] 12.5 mg 0-02 mg by ity of tablet 19:15: mouth. [address] aspirin 81 2019-12 Yes 81mg Take 81 mg U nivers mg EC 0-02 by mouth. ity of tablet 19:15: [address] hydroCHLORO 2019-12 Yes 1{tbl} Take 1 Un ry[facility] thiazide 25 0-02 tablet by ity of mg tablet 19:15: mouth. [address] atorvastati 2019-12 Yes 40mg Take 40 mg [facility] n 40 mg 0-02 by mouth. ity of tablet 19:15: [address] ergocalcife 2019-12 Yes Take by Un ryder rol, 0-02 mouth. ity of vitamin D2, 19:15: [place] (VITAMIN D Medical ORAL) [place] methocarbam 2019-12 Yes 500mg Take 500 U nivers oL 500 mg 0-02 mg by ity of tablet 19:15: mouth. [address] gabapentin 2019-12 Yes 600mg Take 600 Un ryder 600 mg 0-02 mg by ity of tablet 19:15: mouth. [address] hydrOXYzine 2019-12 Yes 50mg Take 50 mg [facility] 50 mg 0-02 by mouth. ity of tablet 19:15: [address] FLUoxetine 2019-12 Yes 1{capsu Take 1 Un ryder 10 mg 0-02 le} capsule by ity of capsule 19:15: mouth. [address] carvediloL 2019-12 Yes 12.5mg Take 12.5 [facility] 12.5 mg 0-02 mg by ity of tablet 19:15: mouth. [address] aspirin 81 2019-12 Yes 81mg Take 81 mg U nivers mg EC 0-02 by mouth. ity of tablet 19:15: [address] hydroCHLORO 2019-12 Yes 1{tbl} Take 1 Un ry[facility] thiazide 25 0-02 tablet by ity of mg tablet 19:15: mouth. [address] atorvastati 2019-12 Yes 40mg Take 40 mg [facility] n 40 mg 0-02 by mouth. ity of tablet 19:15: [address] ergocalcife 2019-12 Yes Take by Un ryder rol, 0-02 mouth. ity of vitamin D2, 19:15: [place] (VITAMIN D Medical ORAL) [place] methocarbam 2019-12 Yes 500mg Take 500 U nivers oL 500 mg 0-02 mg by ity of tablet 19:15: mouth. [address] gabapentin 2019-12 Yes 600mg Take 600 Un ryder 600 mg 0-02 mg by ity of tablet 19:15: mouth. [address] hydrOXYzine 2019-12 Yes 50mg Take 50 mg [facility] 50 mg 0-02 by mouth. ity of tablet 19:15: [address] FLUoxetine 2019-12 Yes 1{capsu Take 1 Un ryder 10 mg 0-02 le} capsule by ity of capsule 19:15: mouth. [address] carvediloL 2019-12 Yes 12.5mg Take 12.5 [facility] 12.5 mg 0-02 mg by ity of tablet 19:15: mouth. [address] aspirin 81 2019-12 Yes 81mg Take 81 mg U nivers mg EC 0-02 by mouth. ity of tablet 19:15: [address] hydroCHLORO 2019-12 Yes 1{tbl} Take 1 Un ry[facility] thiazide 25 0-02 tablet by ity of mg tablet 19:15: mouth. [address] atorvastati 2019-12 Yes 40mg Take 40 mg [facility] n 40 mg 0-02 by mouth. ity of tablet 19:15: [address] ergocalcife 2019-12 Yes Take by Un ryder rol, 0-02 mouth. ity of vitamin D2, 19:15: [place] (VITAMIN D [address] [place] [address]) [place] methocarbam 2019-12 Yes 500mg Take 500 U nivers oL 500 mg 0-02 mg by ity of tablet 19:15: mouth. [address] gabapentin 2019-12 Yes 600mg Take 600 Un ryder 600 mg 0-02 mg by ity of tablet 19:15: mouth. [address] hydrOXYzine 2019-12 Yes 50mg Take 50 mg [facility] 50 mg 0-02 by mouth. ity of tablet 19:15: [address] FLUoxetine 2019-12 Yes 1{capsu Take 1 Un ryder 10 mg 0-02 le} capsule by ity of capsule 19:15: mouth. [address] carvediloL 2019-12 Yes 12.5mg Take 12.5 [facility] 12.5 mg 0-02 mg by ity of tablet 19:15: mouth. [address] aspirin 81 2019-12 Yes 81mg Take 81 mg U nivers mg EC 0-02 by mouth. ity of tablet 19:15: [address] hydroCHLORO 2019-12 Yes 1{tbl} Take 1 Un [facility] thiazide 25 0-02 tablet by ity of mg tablet 19:15: mouth. [address] atorvastati 2019-12 Yes 40mg Take 40 mg [facility] n 40 mg 0-02 by mouth. ity of tablet 19:15: [address] ergocalcife 2019-12 Yes Take by Un ryder rol, 0-02 mouth. ity of vitamin D2, 19:15: [place] (VITAMIN D [address] [place] [address]) [place] methocarbam 2019-12 Yes 500mg Take 500 U nivers oL 500 mg 0-02 mg by ity of tablet 19:15: mouth. [address] gabapentin 2019-12 Yes 600mg Take 600 Un ryder 600 mg 0-02 mg by ity of tablet 19:15: mouth. [address] hydrOXYzine 2019-12 Yes 50mg Take 50 mg [facility] 50 mg 0-02 by mouth. ity of tablet 19:15: [address] FLUoxetine 2019-12 Yes 1{capsu Take 1 Un ryder 10 mg 0-02 le} capsule by ity of capsule 19:15: mouth. [address] carvediloL 2019-12 Yes 12.5mg Take 12.5 [facility] 12.5 mg 0-02 mg by ity of tablet 19:15: mouth. [address] aspirin 81 2019-12 Yes 81mg Take 81 mg U nivers mg EC 0-02 by mouth. ity of tablet 19:15: [address] hydroCHLORO 2019-12 Yes 1{tbl} Take 1 Un ry[facility] thiazide 25 0-02 tablet by ity of mg tablet 19:15: mouth. [address] atorvastati 2019-12 Yes 40mg Take 40 mg [facility] n 40 mg 0-02 by mouth. ity of tablet 19:15: [address] ergocalcife 2019-12 Yes Take by Un ryder rol, 0-02 mouth. ity of vitamin D2, 19:15: [facility] [address] [place] [address] methocarbam 2019-12 Yes 500mg Take 500 U nivers oL 500 mg 0-02 mg by ity of tablet 19:15: mouth. [address] gabapentin 2019-12 Yes 600mg Take 600 Un ryder 600 mg 0-02 mg by ity of tablet 19:15: mouth. [address] hydrOXYzine 2019-12 Yes 50mg Take 50 mg [facility] 50 mg 0-02 by mouth. ity of tablet 19:15: [address] FLUoxetine 2019-12 Yes 1{capsu Take 1 Un ryder 10 mg 0-02 le} capsule by ity of capsule 19:15: mouth. [address] carvediloL 2019-12 Yes 12.5mg Take 12.5 [facility] 12.5 mg 0-02 mg by ity of tablet 19:15: mouth. [address] aspirin 81 2019-12 Yes 81mg Take 81 mg U nivers mg EC 0-02 by mouth. ity of tablet 19:15: [address] hydroCHLORO 2019-12 Yes 1{tbl} Take 1 Un yrder thiazide 25 0-02 tablet by ity of mg tablet 19:15: mouth. [address] atorvastati 2019-12 Yes 40mg Take 40 mg [facility] n 40 mg 0-02 by mouth. ity of tablet 19:15: [address] ergocalcife 2019-12 Yes Take by Un ryder rol, 0-02 mouth. ity of vitamin D2, 19:15: [place] (VITAMIN D [address] [place] [address]) [place] methocarbam 2019-12 Yes 500mg Take 500 U nivers oL 500 mg 0-02 mg by ity of tablet 19:15: mouth. [address] gabapentin 2019-12 Yes 600mg Take 600 Un ryder 600 mg 0-02 mg by ity of tablet 19:15: mouth. [address] hydrOXYzine 2019-12 Yes 50mg Take 50 mg [facility] 50 mg 0-02 by mouth. ity of tablet 19:15: [address] FLUoxetine 2019-12 Yes 1{capsu Take 1 Un ryder 10 mg 0-02 le} capsule by ity of capsule 19:15: mouth. [address] carvediloL 2019-12 Yes 12.5mg Take 12.5 [facility] 12.5 mg 0-02 mg by ity of tablet 19:15: mouth. [address] aspirin 81 2019-12 Yes 81mg Take 81 mg U nivers mg EC 0-02 by mouth. ity of tablet 19:15: [address] hydroCHLORO 2019-12 Yes 1{tbl} Take 1 Un ry[facility] thiazide 25 0-02 tablet by ity of mg tablet 19:15: mouth. [address] atorvastati 2019-12 Yes 40mg Take 40 mg [facility] n 40 mg 0-02 by mouth. ity of tablet 19:15: [address] ergocalcife 2019-12 Yes Take by Un rdyer rol, 0-02 mouth. ity of vitamin D2, 19:15: [place] (VITAMIN D [address] [place] [address]) [place] methocarbam 2019-12 Yes 500mg Take 500 U nivers oL 500 mg 0-02 mg by ity of tablet 19:15: mouth. [address] gabapentin 2019- Yes 600mg Take 600 Un ryder 600 mg 0-02 mg by ity of tablet 19:15: mouth. [address] hydrOXYzine 2019-12 Yes 50mg Take 50 mg [facility] 50 mg 0-02 by mouth. ity of tablet 19:15: [address] FLUoxetine 2019-12 Yes 1{capsu Take 1 Un ryder 10 mg 0-02 le} capsule by ity of capsule 19:15: mouth. [address] carvediloL 2019-12 Yes 12.5mg Take 12.5 [facility] 12.5 mg 0-02 mg by ity of tablet 19:15: mouth. [address] aspirin 81 2019-12 Yes 81mg Take 81 mg U nivers mg EC 0-02 by mouth. ity of tablet 19:15: [address] hydroCHLORO 2019-12 Yes 1{tbl} Take 1 Un ry[facility] thiazide 25 0-02 tablet by ity of mg tablet 19:15: mouth. [address] atorvastati 2019-12 Yes 40mg Take 40 mg [facility] n 40 mg 0-02 by mouth. ity of tablet 19:15: [address] ergocalcife 2019-12 Yes Take by Un ryder rol, 0-02 mouth. ity of vitamin D2, 19:15: [facility] [address] [place] [address] methocarbam 2019-12 Yes 500mg Take 500 U nivers oL 500 mg 0-02 mg by ity of tablet 19:15: mouth. [address] gabapentin 2019-12 Yes 600mg Take 600 Un ryder 600 mg 0-02 mg by ity of tablet 19:15: mouth. [address] hydrOXYzine 2019-12 Yes 50mg Take 50 mg [facility] 50 mg 0-02 by mouth. ity of tablet 19:15: [address] FLUoxetine 2019-12 Yes 1{capsu Take 1 Un ryder 10 mg 0-02 le} capsule by ity of capsule 19:15: mouth. [address] carvediloL 2019-12 Yes 12.5mg Take 12.5 [facility] 12.5 mg 0-02 mg by ity of tablet 19:15: mouth. [address] aspirin 81 2019-12 Yes 81mg Take 81 mg U nivers mg EC 0-02 by mouth. ity of tablet 19:15: [address] hydroCHLORO 2019-12 Yes 1{tbl} Take 1 Un ry[facility] thiazide 25 0-02 tablet by ity of mg tablet 19:15: mouth. [address] atorvastati 2019-12 Yes 40mg Take 40 mg [facility] n 40 mg 0-02 by mouth. ity of tablet 19:15: [address] ergocalcife 2019-12 Yes Take by Un ryder rol, 0-02 mouth. ity of vitamin D2, 19:15: [facility] [place] methocarbam 2019-12 Yes 500mg Take 500 U nivers oL 500 mg 0-02 mg by ity of tablet 19:15: mouth. [address] gabapentin 2019-12 Yes 600mg Take 600 Un ryder 600 mg 0-02 mg by ity of tablet 19:15: mouth. [address] hydrOXYzine 2019-12 Yes 50mg Take 50 mg [facility] 50 mg 0-02 by mouth. ity of tablet 19:15: [address] FLUoxetine 2019-12 Yes 1{capsu Take 1 Un ryder 10 mg 0-02 le} capsule by ity of capsule 19:15: mouth. [address] carvediloL 2019-12 Yes 12.5mg Take 12.5 [facility] 12.5 mg 0-02 mg by ity of tablet 19:15: mouth. [address] aspirin 81 2019-12 Yes 81mg Take 81 mg U nivers mg EC 0-02 by mouth. ity of tablet 19:15: [address] hydroCHLORO 2019-12 Yes 1{tbl} Take 1 Un ry[facility] thiazide 25 0-02 tablet by ity of mg tablet 19:15: mouth. [address] atorvastati 2019-12 Yes 40mg Take 40 mg [facility] n 40 mg 0-02 by mouth. ity of tablet 19:15: [address] ergocalcife 2019-12 Yes Take by Un ryder rol, 0-02 mouth. ity of vitamin D2, 19:15: [place] (VITAMIN D Medical [place]) [place] methocarbam 2019-12 Yes 500mg Take 500 U nivers oL 500 mg 0-02 mg by ity of tablet 19:15: mouth. [address] gabapentin 2019-12 Yes 600mg Take 600 Un ryder 600 mg 0-02 mg by ity of tablet 19:15: mouth. [place] [address] Medical Branch hydrOXYzine 2019-12 Yes 50mg Take 50 mg [facility] 50 mg 0-02 by mouth. ity of tablet 19:15: [address] Branch FLUoxetine 2019-12 Yes 1{capsu Take 1 Un ryder 10 mg 0-02 le} capsule by ity of capsule 19:15: mouth. [address] Branch carvediloL 2019-12 Yes 12.5mg Take 12.5 Univers 12.5 mg 0-02 mg by ity of tablet 19:15: mouth. [place] [address] [facility] Branch aspirin 81 2019-12 Yes 81mg Take 81 mg U nivers mg EC 0-02 by mouth. ity of tablet 19:15: [address] Branch hydroCHLORO 2019-12 Yes 1{tbl} Take 1 Un ryder thiazide 25 0-02 tablet by ity of mg tablet 19:15: mouth. [address] Branch atorvastati 2019-12 Yes 40mg Take 40 mg Univers n 40 mg 0-02 by mouth. ity of tablet 19:15: [address] Branch ergocalcife 2019-12 Yes Take by Un ryder rol, 0-02 mouth. ity of vitamin D2, 19:15: [place] (VITAMIN D 09 Medical ORAL) Branch methocarbam 2019-12 Yes 500mg Take 500 U nivers oL 500 mg 0-02 mg by ity of tablet 19:15: mouth. [address] Branch VITAMIN 2019-12 Yes Take by Univers B-12 ORAL 0-02 mouth. 3-4 ity of 19:13: times [place] 31 daily/ Medical Liquid Branch celecoxib 2019-12 Yes 200mg Take 200 Uni vers (CELEBREX) 0-02 mg by ity of 200 mg 19:13: mouth [place] capsule 31 daily. Medical Branch Amlodipine- 2019-12 Yes Take by Uni vers Valsartan-H 0-02 mouth. ity of CTZ 19:13: [place] (EXFORGE 31 Medical HCT) Branch 10-320-25 mg Tab esomeprazol 2019-12 Yes 40mg Take 40 mg Univers e (NEXIUM) 0-02 by mouth ity o f 40 mg 19:13: daily with [place] capsule 31 breakfast. Medica l Branch REOCYTE 2019-12 Yes Take by Univers PLUS ORAL 0-02 mouth. ity of 19:13: [place] [address] Medical Branch venlafaxine 2019-12 Yes 75mg Take 75 mg Univers (EFFEXOR) 0-02 by mouth ity of 75 mg 19:13: daily. [place] tablet Medical Branch VITAMIN 2019- Yes Take by Univers B-12 ORAL 0-02 mouth. 3-4 ity of 19:13: times [place] 31 daily/ Medical Liquid Branch celecoxib 2019- Yes 200mg Take 200 Uni vers (CELEBREX) 0-02 mg by ity of 200 mg 19:13: mouth [place] capsule 31 daily. Medical Branch Amlodipine- 2019-12 Yes Take by Uni vers Valsartan-H 0-02 mouth. ity of CTZ 19:13: [place] (EXFORGE 31 Medical HCT) Branch 10-320-25 mg Tab esomeprazol 2019-12 Yes 40mg Take 40 mg Univers e (NEXIUM) 0-02 by mouth ity o f 40 mg 19:13: daily with [place] capsule 31 breakfast. Medica l Branch REOCYTE 2019-12 Yes Take by Univers PLUS ORAL 0-02 mouth. ity of 19:13: [address] Branch venlafaxine 2019-12 Yes 75mg Take 75 mg Univers (EFFEXOR) 0-02 by mouth ity of 75 mg 19:13: daily. [place] [address] Medical Branch VITAMIN 2019- Yes Take by Univers B-12 ORAL 0-02 mouth. 3-4 ity of 19:13: times [place] 31 daily/ Medical Liquid Branch celecoxib 2019-12 Yes 200mg Take 200 Uni vers (CELEBREX) 0-02 mg by ity of 200 mg 19:13: mouth [place] capsule 31 daily. Medical Branch Amlodipine- 2019-12 Yes Take by Uni vers Valsartan-H 0-02 mouth. ity of CTZ 19:13: [place] (EXFORGE 31 Medical HCT) Branch 10-320-25 mg Tab esomeprazol 2019-12 Yes 40mg Take 40 mg Univers e (NEXIUM) 0-02 by mouth ity o f 40 mg 19:13: daily with [place] capsule 31 breakfast. Medica l Branch REOCYTE 2019-12 Yes Take by Univers PLUS ORAL 0-02 mouth. ity of 19:13: [address] venlafaxine 2019-12 Yes 75mg Take 75 mg Univers (EFFEXOR) 0-02 by mouth ity of 75 mg 19:13: daily. [place] tablet 31 Medical Branch VITAMIN 2019- Yes Take by Univers B-12 ORAL 0-02 mouth. 3-4 ity of 19:13: times [place] 31 daily/ Medical Liquid Branch celecoxib 2020- Yes 200mg Take 200 Uni vers (CELEBREX) 0-02 mg by ity of 200 mg 19:13: mouth [place] capsule 31 daily. Medical Branch Amlodipine- 2019-12 Yes Take by Uni vers Valsartan-H 0-02 mouth. ity of CTZ 19:13: [place] (EXFORGE 31 Medical HCT) Branch 10-320-25 mg Tab esomeprazol 2019-12 Yes 40mg Take 40 mg Univers e (NEXIUM) 0-02 by mouth ity o f 40 mg 19:13: daily with [place] capsule 31 breakfast. Medica l Branch REOCYTE 2019-12 Yes Take by Univers PLUS ORAL 0-02 mouth. ity of 19:13: [address] Branch venlafaxine 2019-12 Yes 75mg Take 75 mg Univers (EFFEXOR) 0-02 by mouth ity of 75 mg 19:13: daily. [place] tablet Medical Branch VITAMIN 2019- Yes Take by [facility] B-12 ORAL 0-02 mouth. 3-4 ity of 19:13: times [place] 31 daily/ Medical Liquid Branch celecoxib 2019- Yes 200mg Take 200 Uni vers (CELEBREX) 0-02 mg by ity of 200 mg 19:13: mouth [place] capsule 31 daily. Medical Branch Amlodipine- 2019-12 Yes Take by Uni vers Valsartan-H 0-02 mouth. ity of CTZ 19:13: [place] (EXFORGE 31 Medical HCT) Branch 10-320-25 mg Tab esomeprazol 2019-12 Yes 40mg Take 40 mg Univers e (NEXIUM) 0-02 by mouth ity o f 40 mg 19:13: daily with [place] capsule 31 breakfast. Medica l Branch REOCYTE 2019- Yes Take by Univers PLUS ORAL 0-02 mouth. ity of 19:13: [address] Branch venlafaxine 2019-12 Yes 75mg Take 75 mg Univers (EFFEXOR) 0-02 by mouth ity of 75 mg 19:13: daily. [place] tablet 31 [facility] Branch VITAMIN 2019- Yes Take by Univers B-12 ORAL 0-02 mouth. 3-4 ity of 19:13: times [place] 31 daily/ Medical Liquid Branch celecoxib 2019- Yes 200mg Take 200 Uni vers (CELEBREX) 0-02 mg by ity of 200 mg 19:13: mouth [place] capsule 31 daily. Medical Branch Amlodipine- 2019-12 Yes Take by Uni vers Valsartan-H 0-02 mouth. ity of CTZ 19:13: [place] (EXFORGE 31 Medical HCT) Branch 10-320-25 mg Tab esomeprazol 2019-12 Yes 40mg Take 40 mg Univers e (NEXIUM) 0-02 by mouth ity o f 40 mg 19:13: daily with [place] capsule 31 breakfast. Medica l Branch REOCYTE 2019-12 Yes Take by Univers PLUS ORAL 0-02 mouth. ity of 19:13: [place] [address] Medical Branch venlafaxine 2019-12 Yes 75mg Take 75 mg Univers (EFFEXOR) 0-02 by mouth ity of 75 mg 19:13: daily. [place] [address] Medical Branch VITAMIN 2019-12 Yes Take by Univers B-12 ORAL 0-02 mouth. 3-4 ity of 19:13: times [place] 31 daily/ Medical Liquid Branch celecoxib 2019-12 Yes 200mg Take 200 Uni vers (CELEBREX) 0-02 mg by ity of 200 mg 19:13: mouth [place] capsule 31 daily. Medical Branch Amlodipine- 2019-12 Yes Take by Uni vers Valsartan-H 0-02 mouth. ity of CTZ 19:13: [place] (EXFORGE 31 Medical HCT) Branch 10-320-25 mg Tab esomeprazol 2019-12 Yes 40mg Take 40 mg Univers e (NEXIUM) 0-02 by mouth ity o f 40 mg 19:13: daily with [place] capsule 31 breakfast. Medica l Branch REOCYTE 2019-12 Yes Take by Univers PLUS ORAL 0-02 mouth. ity of 19:13: [place] [address] Medical Branch venlafaxine 2019-12 Yes 75mg Take 75 mg Univers (EFFEXOR) 0-02 by mouth ity of 75 mg 19:13: daily. [place] [address] Medical Branch VITAMIN 2019- Yes Take by Univers B-12 ORAL 0-02 mouth. 3-4 ity of 19:13: times [place] 31 daily/ Medical Liquid Branch celecoxib 2019- Yes 200mg Take 200 Uni vers (CELEBREX) 0-02 mg by ity of 200 mg 19:13: mouth [place] capsule 31 daily. Medical Branch Amlodipine- 2019-12 Yes Take by Uni vers Valsartan-H 0-02 mouth. ity of CTZ 19:13: [place] (EXFORGE 31 Medical HCT) Branch 10-320-25 mg Tab esomeprazol 2019-12 Yes 40mg Take 40 mg Univers e (NEXIUM) 0-02 by mouth ity o f 40 mg 19:13: daily with [place] capsule 31 breakfast. Medica l Branch REOCYTE 2019-12 Yes Take by Univers PLUS ORAL 0-02 mouth. ity of 19:13: Medical Branch venlafaxine 2019-12 Yes 75mg Take 75 mg Univers (EFFEXOR) 0-02 by mouth ity of 75 mg 19:13: daily. [place] tablet Medical Branch VITAMIN 2019-12 Yes Take by Univers B-12 ORAL 0-02 mouth. 3-4 ity of 19:13: times [place] daily/ Medical Liquid Branch celecoxib 2019-12 Yes 200mg Take 200 Uni vers (CELEBREX) 0-02 mg by ity of 200 mg 19:13: mouth [place] capsule 31 daily. Medical Branch Amlodipine- 2019-12 Yes Take by Uni vers Valsartan-H 0-02 mouth. ity of CTZ 19:13: [place] [facility] Branch 10-320-25 mg Tab esomeprazol 2019-12 Yes 40mg Take 40 mg Univers e (NEXIUM) 0-02 by mouth ity o f 40 mg 19:13: daily with [place] capsule 31 breakfast. Medica l Branch REOCYTE 2019-12 Yes Take by Univers PLUS ORAL 0-02 mouth. ity of 19:13: Medical Branch venlafaxine 2019-12 Yes 75mg Take 75 mg Univers (EFFEXOR) 0-02 by mouth ity of 75 mg 19:13: daily. [place] tablet Medical Branch VITAMIN 2019- Yes Take by Univers B-12 ORAL 0-02 mouth. 3-4 ity of 19:13: times [place] 31 daily/ Medical Liquid Branch celecoxib 2019-12 Yes 200mg Take 200 Uni vers (CELEBREX) 0-02 mg by ity of 200 mg 19:13: mouth [place] capsule 31 daily. Medical Branch Amlodipine- 2020-1 Yes Take by Uni vers Valsartan-H 0-02 mouth. ity of CTZ 19:13: [place] (EXFORGE 31 Medical HCT) Branch 10-320-25 mg Tab esomeprazol 2019-12 Yes 40mg Take 40 mg Univers e (NEXIUM) 0-02 by mouth ity o f 40 mg 19:13: daily with [place] capsule 31 breakfast. Medica l Branch REOCYTE 2019-12 Yes Take by Univers PLUS ORAL 0-02 mouth. ity of 19:13: [place] [address] Medical Branch venlafaxine 2019-12 Yes 75mg Take 75 mg Univers (EFFEXOR) 0-02 by mouth ity of 75 mg 19:13: daily. [place] tablet Medical Branch VITAMIN 2019-12 Yes Take by Univers B-12 ORAL 0-02 mouth. 3-4 ity of 19:13: times [place] 31 daily/ Medical Liquid Branch celecoxib 2019-12 Yes 200mg Take 200 Uni vers (CELEBREX) 0-02 mg by ity of 200 mg 19:13: mouth [place] capsule 31 daily. Medical Branch Amlodipine- 2019-12 Yes Take by Uni vers Valsartan-H 0-02 mouth. ity of CTZ 19:13: [place] [facility] Branch 10-320-25 mg Tab esomeprazol 2019-12 Yes 40mg Take 40 mg Univers e (NEXIUM) 0-02 by mouth ity o f 40 mg 19:13: daily with [place] capsule 31 breakfast. Medica l Branch REOCYTE 2019-12 Yes Take by Univers PLUS ORAL 0-02 mouth. ity of 19:13: [place] [address] Medical Branch venlafaxine 2019-12 Yes 75mg Take 75 mg Univers (EFFEXOR) 0-02 by mouth ity of 75 mg 19:13: daily. [place] tablet Medical Branch VITAMIN 2019-12 Yes Take by Univers B-12 ORAL 0-02 mouth. 3-4 ity of 19:13: times [place] 31 daily/ Medical Liquid Branch celecoxib 2019-12 Yes 200mg Take 200 Uni vers (CELEBREX) 0-02 mg by ity of 200 mg 19:13: mouth [place] capsule 31 daily. Medical Branch Amlodipine- 2019-12 Yes Take by Uni vers Valsartan-H 0-02 mouth. ity of CTZ 19:13: [place] (EXFORGE 31 Medical HCT) Branch 10-320-25 mg Tab esomeprazol 2019-12 Yes 40mg Take 40 mg Univers e (NEXIUM) 0-02 by mouth ity o f 40 mg 19:13: daily with [place] capsule 31 breakfast. Medica l Branch REOCYTE 2019-12 Yes Take by Univers PLUS ORAL 0-02 mouth. ity of 19:13: [place] [address] Medical Branch venlafaxine 2019-12 Yes 75mg Take 75 mg Univers (EFFEXOR) 0-02 by mouth ity of 75 mg 19:13: daily. [place] tablet Medical Branch VITAMIN 2019-12 Yes Take by Univers B-12 ORAL 0-02 mouth. 3-4 ity of 19:13: times [place] 31 daily/ Medical Liquid Branch celecoxib 2019-12 Yes 200mg Take 200 Uni vers (CELEBREX) 0-02 mg by ity of 200 mg 19:13: mouth [place] capsule 31 daily. Medical Branch Amlodipine- 2019-12 Yes Take by Uni vers Valsartan-H 0-02 mouth. ity of CTZ 19:13: [place] ([place] [id number] Medical HCT) Branch 10-320-25 mg Tab esomeprazol 2019-12 Yes 40mg Take 40 mg Univers e (NEXIUM) 0-02 by mouth ity o f 40 mg 19:13: daily with [place] capsule 31 breakfast. Medica l Branch REOCYTE 2019-12 Yes Take by Univers PLUS ORAL 0-02 mouth. ity of 19:13: [place] [address] Medical Branch venlafaxine 2019-12 Yes 75mg Take 75 mg Univers (EFFEXOR) 0-02 by mouth ity of 75 mg 19:13: daily. [place] tablet Medical Branch VITAMIN 2019-12 Yes Take by Univers B-12 ORAL 0-02 mouth. 3-4 ity of 19:13: times [place] 31 daily/ Medical Liquid Branch celecoxib 2019-12 Yes 200mg Take 200 Uni vers (CELEBREX) 0-02 mg by ity of 200 mg 19:13: mouth [place] capsule 31 daily. Medical Branch Amlodipine- 2019-12 Yes Take by Uni vers Valsartan-H 0-02 mouth. ity of CTZ 19:13: [place] (EXFORGE 31 Medical HCT) Branch 10-320-25 mg Tab esomeprazol 2019-12 Yes 40mg Take 40 mg Univers e (NEXIUM) 0-02 by mouth ity o f 40 mg 19:13: daily with [place] capsule 31 breakfast. Medica l Branch REOCYTE 2019-12 Yes Take by Univers PLUS ORAL 0-02 mouth. ity of 19:13: [place] [address] Medical Branch venlafaxine 2019-12 Yes 75mg Take 75 mg Univers (EFFEXOR) 0-02 by mouth ity of 75 mg 19:13: daily. [place] tablet 31 Medical Branch VITAMIN 2019- Yes Take by Univers B-12 ORAL 0-02 mouth. 3-4 ity of 19:13: times [place] 31 daily/ Medical Liquid Branch celecoxib 2019- Yes 200mg Take 200 Uni vers (CELEBREX) 0-02 mg by ity of 200 mg 19:13: mouth [place] capsule 31 daily. Medical Branch Amlodipine- 2019-12 Yes Take by Uni vers Valsartan-H 0-02 mouth. ity of CTZ 19:13: [place] (EXFORGE 31 Medical HCT) Branch 10-320-25 mg Tab esomeprazol 2019-12 Yes 40mg Take 40 mg Univers e (NEXIUM) 0-02 by mouth ity o f 40 mg 19:13: daily with [place] capsule 31 breakfast. Medica l Branch REOCYTE 2019-12 Yes Take by Univers PLUS ORAL 0-02 mouth. ity of 19:13: [place] [address] Medical Branch venlafaxine 2019-12 Yes 75mg Take 75 mg Univers (EFFEXOR) 0-02 by mouth ity of 75 mg 19:13: daily. [place] tablet Medical Branch VITAMIN 2019- Yes Take by Univers B-12 ORAL 0-02 mouth. 3-4 ity of 19:13: times [place] 31 daily/ Medical Liquid Branch celecoxib 2019- Yes 200mg Take 200 Uni vers (CELEBREX) 0-02 mg by ity of 200 mg 19:13: mouth [place] capsule 31 daily. Medical Branch Amlodipine- 2019-12 Yes Take by Uni vers Valsartan-H 0-02 mouth. ity of CTZ 19:13: [place] (EXFORGE 31 Medical HCT) Branch 10-320-25 mg Tab esomeprazol 2019-12 Yes 40mg Take 40 mg Univers e (NEXIUM) 0-02 by mouth ity o f 40 mg 19:13: daily with [place] capsule 31 breakfast. Medica l Branch REOCYTE 2019-12 Yes Take by Univers PLUS ORAL 0-02 mouth. ity of 19:13: [place] [address] Medical Branch venlafaxine 2019- Yes 75mg Take 75 mg Univers (EFFEXOR) 0-02 by mouth ity of 75 mg 19:13: daily. [place] tablet 31 Medical Branch VITAMIN 2020- Yes Take by Univers B-12 ORAL 0-02 mouth. 3-4 ity of 19:13: times [place] 31 daily/ Medical Liquid Branch celecoxib 2019- Yes 200mg Take 200 Uni vers (CELEBREX) 0-02 mg by ity of 200 mg 19:13: mouth [place] capsule 31 daily. Medical Branch Amlodipine- 2019-12 Yes Take by Uni vers Valsartan-H 0-02 mouth. ity of CTZ 19:13: [place] (EXFORGE 31 Medical HCT) Branch 10-320-25 mg Tab esomeprazol 2019-12 Yes 40mg Take 40 mg Univers e (NEXIUM) 0-02 by mouth ity o f 40 mg 19:13: daily with [place] capsule 31 breakfast. Medica l Branch REOCYTE 2019-12 Yes Take by Univers PLUS ORAL 0-02 mouth. ity of 19:13: [place] [address] Medical Branch venlafaxine 2019-12 Yes 75mg Take 75 mg Univers (EFFEXOR) 0-02 by mouth ity of 75 mg 19:13: daily. [place] [address] Medical Branch VITAMIN 2019- Yes Take by Univers B-12 ORAL 0-02 mouth. 3-4 ity of 19:13: times [place] 31 daily/ Medical Liquid Branch celecoxib 2019- Yes 200mg Take 200 Uni vers (CELEBREX) 0-02 mg by ity of 200 mg 19:13: mouth [place] capsule 31 daily. Medical Branch Amlodipine- 2019-12 Yes Take by Uni vers Valsartan-H 0-02 mouth. ity of CTZ 19:13: [place] (EXFORGE 31 Medical HCT) Branch 10-320-25 mg Tab esomeprazol 2019-12 Yes 40mg Take 40 mg Univers e (NEXIUM) 0-02 by mouth ity o f 40 mg 19:13: daily with [place] capsule 31 breakfast. Medica l Branch REOCYTE 2019- Yes Take by Univers PLUS ORAL 0-02 mouth. ity of 19:13: [place] [address] Medical Branch venlafaxine 2019-12 Yes 75mg Take 75 mg Univers (EFFEXOR) 0-02 by mouth ity of 75 mg 19:13: daily. [place] tablet 31 Medical Branch VITAMIN 2019- Yes Take by Univers B-12 ORAL 0-02 mouth. 3-4 ity of 19:13: times [place] 31 daily/ Medical Liquid Branch celecoxib 2019- Yes 200mg Take 200 Uni vers (CELEBREX) 0-02 mg by ity of 200 mg 19:13: mouth [place] capsule 31 daily. Medical Branch Amlodipine- 2019-12 Yes Take by Uni vers Valsartan-H 0-02 mouth. ity of CTZ 19:13: [place] (EXFORGE 31 Medical HCT) Branch 10-320-25 mg Tab esomeprazol 2019-12 Yes 40mg Take 40 mg Univers e (NEXIUM) 0-02 by mouth ity o f 40 mg 19:13: daily with [place] capsule 31 breakfast. Medica l Branch REOCYTE 2019-12 Yes Take by Univers PLUS ORAL 0-02 mouth. ity of 19:13: [address] Branch venlafaxine 2019-12 Yes 75mg Take 75 mg Univers (EFFEXOR) 0-02 by mouth ity of 75 mg 19:13: daily. [place] tablet Medical Branch VITAMIN 2019-12 Yes Take by Univers B-12 ORAL 0-02 mouth. 3-4 ity of 19:13: times [place] 31 daily/ Medical Liquid Branch celecoxib 2019-12 Yes 200mg Take 200 Uni vers (CELEBREX) 0-02 mg by ity of 200 mg 19:13: mouth [place] capsule 31 daily. Medical Branch Amlodipine- 2019-12 Yes Take by Uni vers Valsartan-H 0-02 mouth. ity of CTZ 19:13: [place] (EXFORGE 31 Medical HCT) Branch 10-320-25 mg Tab esomeprazol 2019-12 Yes 40mg Take 40 mg Univers e (NEXIUM) 0-02 by mouth ity o f 40 mg 19:13: daily with [place] capsule 31 breakfast. Medica l Branch REOCYTE 2019-12 Yes Take by Univers PLUS ORAL 0-02 mouth. ity of 19:13: [address] venlafaxine 2019-12 Yes 75mg Take 75 mg Univers (EFFEXOR) 0-02 by mouth ity of 75 mg 19:13: daily. [place] tablet Medical Branch VITAMIN 2019- Yes Take by Univers B-12 ORAL 0-02 mouth. 3-4 ity of 19:13: times [place] 31 daily/ Medical Liquid Branch celecoxib 2019-12 Yes 200mg Take 200 Uni vers (CELEBREX) 0-02 mg by ity of 200 mg 19:13: mouth [place] capsule 31 daily. Medical Branch Amlodipine- 2019-12 Yes Take by Uni vers Valsartan-H 0-02 mouth. ity of CTZ 19:13: [place] (EX[facility]GE 31 Medical HCT) Branch 10-320-25 mg Tab esomeprazol 2019-12 Yes 40mg Take 40 mg Univers e (NEXIUM) 0-02 by mouth ity o f 40 mg 19:13: daily with [place] capsule 31 breakfast. Medica l Branch REOCYTE 2019-12 Yes Take by Univers PLUS ORAL 0-02 mouth. ity of 19:13: [place] [address] Medical Branch venlafaxine 2019-12 Yes 75mg Take 75 mg Univers (EFFEXOR) 0-02 by mouth ity of 75 mg 19:13: daily. [place] tablet Medical Branch VITAMIN 2019-12 Yes Take by Univers B-12 ORAL 0-02 mouth. 3-4 ity of 19:13: times [place] 31 daily/ Medical Liquid Branch celecoxib 2019-12 Yes 200mg Take 200 Uni vers (CELEBREX) 0-02 mg by ity of 200 mg 19:13: mouth [place] capsule 31 daily. Medical Branch Amlodipine- 2019-12 Yes Take by Uni vers Valsartan-H 0-02 mouth. ity of CTZ 19:13: [place] (EX[facility]GE 31 Medical HCT) Branch 10-320-25 mg Tab esomeprazol 2019-12 Yes 40mg Take 40 mg Univers e (NEXIUM) 0-02 by mouth ity o f 40 mg 19:13: daily with [place] capsule 31 breakfast. Medica l Branch REOCYTE 2019-12 Yes Take by Univers PLUS ORAL 0-02 mouth. ity of 19:13: [place] [address] Medical Branch venlafaxine 2019-12 Yes 75mg Take 75 mg Univers (EFFEXOR) 0-02 by mouth ity of 75 mg 19:13: daily. [place] tablet Medical Branch VITAMIN 2019- Yes Take by Univers B-12 ORAL 0-02 mouth. 3-4 ity of 19:13: times [place] 31 daily/ Medical Liquid Branch celecoxib 2019-12 Yes 200mg Take 200 Uni vers (CELEBREX) 0-02 mg by ity of 200 mg 19:13: mouth [place] capsule 31 daily. Medical Branch Amlodipine- 2019-12 Yes Take by Uni vers Valsartan-H 0-02 mouth. ity of CTZ 19:13: [place] ([facility] 31 Medical HCT) Branch 10-320-25 mg Tab esomeprazol 2019-12 Yes 40mg Take 40 mg Univers e (NEXIUM) 0-02 by mouth ity o f 40 mg 19:13: daily with [place] capsule 31 breakfast. Medica l Branch REOCYTE 2019-12 Yes Take by Univers PLUS ORAL 0-02 mouth. ity of 19:13: [place] [address] Medical Branch venlafaxine 2019-12 Yes 75mg Take 75 mg Univers (EFFEXOR) 0-02 by mouth ity of 75 mg 19:13: daily. [place] [address] Medical Branch VITAMIN 2019-12 Yes Take by Univers B-12 ORAL 0-02 mouth. 3-4 ity of 19:13: times [place] 31 daily/ Medical Liquid Branch celecoxib 2019-12 Yes 200mg Take 200 Uni vers (CELEBREX) 0-02 mg by ity of 200 mg 19:13: mouth [place] capsule 31 daily. Medical Branch Amlodipine- 2019-12 Yes Take by Uni vers Valsartan-H 0-02 mouth. ity of CTZ 19:13: [place] [facility] Branch 10-320-25 mg Tab esomeprazol 2019-12 Yes 40mg Take 40 mg Univers e (NEXIUM) 0-02 by mouth ity o f 40 mg 19:13: daily with [place] capsule 31 breakfast. Medica l Branch REOCYTE 2019-12 Yes Take by Univers PLUS ORAL 0-02 mouth. ity of 19:13: [place] [address] Medical Branch venlafaxine 2019-12 Yes 75mg Take 75 mg Univers (EFFEXOR) 0-02 by mouth ity of 75 mg 19:13: daily. [place] tablet Medical Branch VITAMIN 2019-12 Yes Take by Univers B-12 ORAL 0-02 mouth. 3-4 ity of 19:13: times [place] 31 daily/ Medical Liquid Branch celecoxib 2019- Yes 200mg Take 200 Uni vers (CELEBREX) 0-02 mg by ity of 200 mg 19:13: mouth [place] capsule 31 daily. Medical Branch Amlodipine- 2019-12 Yes Take by Uni vers Valsartan-H 0-02 mouth. ity of CTZ 19:13: [place] [facility] Branch 10-320-25 mg Tab esomeprazol 2019-12 Yes 40mg Take 40 mg Univers e (NEXIUM) 0-02 by mouth ity o f 40 mg 19:13: daily with [place] capsule 31 breakfast. Medica l Branch REOCYTE 2019-12 Yes Take by Univers PLUS ORAL 0-02 mouth. ity of 19:13: [place] [address] Medical Branch venlafaxine 2019-12 Yes 75mg Take 75 mg Univers (EFFEXOR) 0-02 by mouth ity of 75 mg 19:13: daily. [place] tablet Medical Branch VITAMIN 2019-12 Yes Take by Univers B-12 ORAL 0-02 mouth. 3-4 ity of 19:13: times 31 daily/ Medical Liquid Branch celecoxib 2019-12 Yes 200mg Take 200 Uni vers (CELEBREX) 0-02 mg by ity of 200 mg 19:13: mouth [place] capsule 31 daily. Medical Branch Amlodipine- 2019-12 Yes Take by Uni vers Valsartan-H 0-02 mouth. ity of CTZ 19:13: [place] ([facility] 31 Medical HCT) Branch 10-320-25 mg Tab esomeprazol 2019-12 Yes 40mg Take 40 mg Univers e (NEXIUM) 0-02 by mouth ity o f 40 mg 19:13: daily with [place] capsule 31 breakfast. Medica l Branch REOCYTE 2019-12 Yes Take by Univers PLUS ORAL 0-02 mouth. ity of 19:13: [place] [address] Medical Branch venlafaxine 2019-12 Yes 75mg Take 75 mg Univers (EFFEXOR) 0-02 by mouth ity of 75 mg 19:13: daily. [place] tablet Medical Branch VITAMIN 2019-12 Yes Take by Univers B-12 ORAL 0-02 mouth. 3-4 ity of 19:13: times [place] 31 daily/ Medical Liquid Branch celecoxib 2019-12 Yes 200mg Take 200 Uni vers (CELEBREX) 0-02 mg by ity of 200 mg 19:13: mouth [place] capsule 31 daily. Medical Branch Amlodipine- 2019-12 Yes Take by Uni vers Valsartan-H 0-02 mouth. ity of CTZ 19:13: [place] ([facility] 31 Medical HCT) Branch 10-320-25 mg Tab esomeprazol 2019-12 Yes 40mg Take 40 mg Univers e (NEXIUM) 0-02 by mouth ity o f 40 mg 19:13: daily with [place] capsule 31 breakfast. Medica l Branch REOCYTE 2019-12 Yes Take by Univers PLUS ORAL 0-02 mouth. ity of 19:13: [place] [address] Medical Branch venlafaxine 2019-12 Yes 75mg Take 75 mg Univers (EFFEXOR) 0-02 by mouth ity of 75 mg 19:13: daily. [place] tablet Medical Branch VITAMIN 2019-12 Yes Take by Univers B-12 ORAL 0-02 mouth. 3-4 ity of 19:13: times [place] 31 daily/ Medical Liquid Branch celecoxib 2019-12 Yes 200mg Take 200 Uni vers (CELEBREX) 0-02 mg by ity of 200 mg 19:13: mouth [place] capsule 31 daily. Medical Branch Amlodipine- 2019-12 Yes Take by Uni vers Valsartan-H 0-02 mouth. ity of CTZ 19:13: [place] [facility] Branch 10-320-25 mg Tab esomeprazol 2019-12 Yes 40mg Take 40 mg Univers e (NEXIUM) 0-02 by mouth ity o f 40 mg 19:13: daily with [place] capsule 31 breakfast. Medica l Branch REOCYTE 2019-12 Yes Take by Univers PLUS ORAL 0-02 mouth. ity of 19:13: [place] [address] Medical Branch venlafaxine 2019-12 Yes 75mg Take 75 mg Univers (EFFEXOR) 0-02 by mouth ity of 75 mg 19:13: daily. [place] tablet Medical Branch VITAMIN 2019-12 Yes Take by Univers B-12 ORAL 0-02 mouth. 3-4 ity of 19:13: times [place] 31 daily/ Medical Liquid Branch celecoxib 2019-12 Yes 200mg Take 200 Uni vers (CELEBREX) 0-02 mg by ity of 200 mg 19:13: mouth [place] capsule 31 daily. Medical Branch Amlodipine- 2019-12 Yes Take by Uni vers Valsartan-H 0-02 mouth. ity of CTZ 19:13: [place] ([facility] 31 Medical HCT) Branch 10-320-25 mg Tab esomeprazol 2019-12 Yes 40mg Take 40 mg Univers e (NEXIUM) 0-02 by mouth ity o f 40 mg 19:13: daily with [place] capsule 31 breakfast. Medica l Branch REOCYTE 2019-12 Yes Take by Univers PLUS ORAL 0-02 mouth. ity of 19:13: [place] [address] Medical Branch venlafaxine 2019-12 Yes 75mg Take 75 mg Univers (EFFEXOR) 0-02 by mouth ity of 75 mg 19:13: daily. [place] tablet 31 Medical Branch VITAMIN 2019- Yes Take by Univers B-12 ORAL 0-02 mouth. 3-4 ity of 19:13: times [place] 31 daily/ [facility] celecoxib 2019-12 Yes 200mg Take 200 [facility] (CELEBREX) 0-02 mg by ity of 200 mg 19:13: mouth [place] capsule 31 daily. Medical [facility] Amlodipine- 2019-12 Yes Take by [facility] Valsartan-H 0-02 mouth. ity of CTZ 19:13: [place] (EX[facility]GE 31 Medical HCT) Branch 10-320-25 mg Tab esomeprazol 2019-12 Yes 40mg Take 40 mg [facility] e (NEXIUM) 0-02 by mouth ity o f 40 mg 19:13: daily with [place] capsule 31 breakfast. Medica l Branch REOCYTE 2019-12 Yes Take by [facility] PLUS ORAL 0-02 mouth. ity of 19:13: [place] [address] Medical Branch venlafaxine 2019-12 Yes 75mg Take 75 mg [facility] (EFFEXOR) 0-02 by mouth ity of 75 mg 19:13: daily. [place] tablet Medical Branch VITAMIN 2019-12 Yes Take by [facility] B-12 ORAL 0-02 mouth. 3-4 ity of 19:13: times [place] 31 daily/ [facility] celecoxib 2019-12 Yes 200mg Take 200 [facility] (CELEBREX) 0-02 mg by ity of 200 mg 19:13: mouth [place] capsule 31 daily. Medical Branch Amlodipine- 2019-12 Yes Take by [facility] vers Valsartan-H 0-02 mouth. ity of CTZ 19:13: [place] (EXFORGE 31 Medical HCT) Branch 10-320-25 mg Tab esomeprazol 2019-12 Yes 40mg Take 40 mg [facility] (NEXIUM) 0-02 by mouth ity o f 40 mg 19:13: daily with [place] capsule 31 breakfast. Medica l Branch REOCYTE 2019-12 Yes Take by [facility] PLUS ORAL 0-02 mouth. ity of 19:13: Medical Branch venlafaxine 2019-12 Yes 75mg Take 75 mg [facility] (EFFEXOR) 0-02 by mouth ity of 75 mg 19:13: daily. [place] tablet 31 Medical Branch VITAMIN 2019-12 Yes Take by [facility] B-12 ORAL 0-02 mouth. 3-4 ity of 19:13: times [place] 31 daily/ [facility] celecoxib 2019-12 Yes 200mg Take 200 [facility] (CELEBREX) 0-02 mg by ity of 200 mg 19:13: mouth [place] capsule 31 daily. [facility] Amlodipine- 2019-12 Yes Take by [facility] vers Valsartan-H 0-02 mouth. ity of CTZ 19:13: [place] (EXFORGE 31 Medical HCT) Branch 10-320-25 mg Tab esomeprazol 2019-12 Yes 40mg Take 40 mg [facility] (NEXIUM) 0-02 by mouth ity o f 40 mg 19:13: daily with [place] capsule 31 breakfast. Medica l Branch REOCYTE 2019-12 Yes Take by [facility] PLUS ORAL 0-02 mouth. ity of 19:13: [place] [address] [facility] Branch venlafaxine 2019-12 Yes 75mg Take 75 mg [facility] (EFFEXOR) 0-02 by mouth ity of 75 mg 19:13: daily. [place] tablet Medical [facility] VITAMIN 2019-12 Yes Take by [facility] B-12 ORAL 0-02 mouth. 3-4 ity of 19:13: times [place] 31 daily/ [facility] celecoxib 2019-12 Yes 200mg Take 200 [facility] (CELEBREX) 0-02 mg by ity of 200 mg 19:13: mouth [place] capsule 31 daily. [facility] Amlodipine- 2019-12 Yes Take by [facility] vers Valsartan-H 0-02 mouth. ity of CTZ 19:13: [place] (EXFORGE 31 Medical HCT) Branch 10-320-25 mg Tab esomeprazol 2019-12 Yes 40mg Take 40 mg [facility] (NEXIUM) 0-02 by mouth ity o f 40 mg 19:13: daily with [place] capsule 31 breakfast. Medica l [facility] REOCYTE 2019-12 Yes Take by [facility] PLUS ORAL 0-02 mouth. ity of 19:13: [place] [address] [facility] Branch venlafaxine 2019-12 Yes 75mg Take 75 mg [facility] (EFFEXOR) 0-02 by mouth ity of 75 mg 19:13: daily. [place] tablet 31 [facility] Branch VITAMIN 2019-12 Yes Take by [facility] B-12 ORAL 0-02 mouth. 3-4 ity of 19:13: times [place] 31 daily/ [facility] celecoxib 2019-12 Yes 200mg Take 200 [facility] (CELEBREX) 0-02 mg by ity of 200 mg 19:13: mouth [place] capsule 31 daily. Medical Branch Amlodipine- 2019-12 Yes Take by [facility] Valsartan-H 0-02 mouth. ity of CTZ 19:13: [place] (EXFORGE 31 Medical HCT) Branch 10-320-25 mg Tab celecoxib 2019-12 Yes 200mg Take 200 [facility] (CELEBREX) 0-02 mg by ity of 200 mg 19:13: mouth [place] capsule 31 daily. Medical [facility] Amlodipine- 2019-12 Yes Take by [facility] vers Valsartan-H 0-02 mouth. ity of CTZ 19:13: [place] (EX[facility]GE 31 Medical HCT) Branch 10-320-25 mg Tab esomeprazol 2019-12 Yes 40mg Take 40 mg [facility] (NEXIUM) 0-02 by mouth ity o f 40 mg 19:13: daily with [place] capsule 31 breakfast. Medica l [facility] esomeprazol 2019-12 Yes 40mg Take 40 mg [facility] (NEXIUM) 0-02 by mouth ity o f 40 mg 19:13: daily with [place] capsule 31 breakfast. Medica l [facility] REOCYTE 2019-12 Yes Take by [facility] PLUS ORAL 0-02 mouth. ity of 19:13: [place] [address] [facility] Branch venlafaxine 2019-12 Yes 75mg Take 75 mg [facility] (EFFEXOR) 0-02 by mouth ity of 75 mg 19:13: daily. [place] tablet 31 Medical Branch VITAMIN 2019-12 Yes Take by [facility] B-12 ORAL 0-02 mouth. 3-4 ity of 19:13: times [place] 31 daily/ [facility] REOCYTE 2019-12 Yes Take by [facility] PLUS ORAL 0-02 mouth. ity of 19:13: [address] Branch venlafaxine 2019-12 Yes 75mg Take 75 mg [facility] (EFFEXOR) 0-02 by mouth ity of 75 mg 19:13: daily. [place] tablet Medical [facility] celecoxib 2019-12 Yes 200mg Take 200 [facility] (CELEBREX) 0-02 mg by ity of 200 mg 19:13: mouth [place] capsule 31 daily. Medical Branch Amlodipine- 2019-12 Yes Take by [facility] vers Valsartan-H 0-02 mouth. ity of CTZ 19:13: [place] (EX[facility]GE 31 Medical HCT) Branch 10-320-25 mg Tab esomeprazol 2019-12 Yes 40mg Take 40 mg [facility] (NEXIUM) 0-02 by mouth ity o f 40 mg 19:13: daily with [place] capsule 31 breakfast. Medica l [facility] REOCYTE 2019-12 Yes Take by [facility] PLUS ORAL 0-02 mouth. ity of 19:13: [place] [address] [facility] Branch venlafaxine 2019-12 Yes 75mg Take 75 mg [facility] (EFFEXOR) 0-02 by mouth ity of 75 mg 19:13: daily. [place] tablet Medical [facility] VITAMIN 2019-12 Yes Take by [facility] B-12 ORAL 0-02 mouth. 3-4 ity of 19:13: times [place] 31 daily/ [facility] VITAMIN 2019- Yes Take by [facility] B-12 ORAL 0-02 mouth. 3-4 ity of 19:13: times [place] 31 daily/ [facility] celecoxib 2019- Yes 200mg Take 200 [facility] (CELEBREX) 0-02 mg by ity of 200 mg 19:13: mouth [place] capsule 31 daily. [facility] Amlodipine- 2019-12 Yes Take by [facility] vers Valsartan-H 0-02 mouth. ity of CTZ 19:13: [place] (EX[facility]GE 31 Medical HCT) Branch 10-320-25 mg Tab esomeprazol 2019-12 Yes 40mg Take 40 mg [facility] e (NEXIUM) 0-02 by mouth ity o f 40 mg 19:13: daily with [place] capsule 31 breakfast. Medica l [facility] REOCYTE 2019-12 Yes Take by [facility] PLUS ORAL 0-02 mouth. ity of 19:13: [place] [address] [facility] Branch venlafaxine 2019-12 Yes 75mg Take 75 mg [facility] (EFFEXOR) 0-02 by mouth ity of 75 mg 19:13: daily. [place] tablet 31 [facility] Branch VITAMIN 2019- Yes Take by [facility] B-12 ORAL 0-02 mouth. 3-4 ity of 19:13: times [place] 31 daily/ [facility] celecoxib 2019- Yes 200mg Take 200 [facility] (CELEBREX) 0-02 mg by ity of 200 mg 19:13: mouth [place] capsule 31 daily. [facility] Amlodipine- 2019-12 Yes Take by [facility] vers Valsartan-H 0-02 mouth. ity of CTZ 19:13: [place] (EXFORGE 31 Medical HCT) Branch 10-320-25 mg Tab esomeprazol 2019-12 Yes 40mg Take 40 mg [facility] (NEXIUM) 0-02 by mouth ity o f 40 mg 19:13: daily with [place] capsule 31 breakfast. Medica l Branch REOCYTE 2019-12 Yes Take by [facility] PLUS ORAL 0-02 mouth. ity of 19:13: [place] [address] [facility] Branch venlafaxine 2019-12 Yes 75mg Take 75 mg [facility] (EFFEXOR) 0-02 by mouth ity of 75 mg 19:13: daily. [place] tablet Medical [facility] VITAMIN 2019- Yes Take by [facility] B-12 ORAL 0-02 mouth. 3-4 ity of 19:13: times [place] 31 daily/ [facility] celecoxib 2019- Yes 200mg Take 200 [facility] (CELEBREX) 0-02 mg by ity of 200 mg 19:13: mouth [place] capsule 31 daily. Medical Branch Amlodipine- 2019-12 Yes Take by [facility] vers Valsartan-H 0-02 mouth. ity of CTZ 19:13: [place] (EX[facility]GE 31 Medical HCT) Branch 10-320-25 mg Tab esomeprazol 2019-12 Yes 40mg Take 40 mg [facility] (NEXIUM) 0-02 by mouth ity o f 40 mg 19:13: daily with [place] capsule 31 breakfast. Medica l Branch REOCYTE 2019-12 Yes Take by [facility] PLUS ORAL 0-02 mouth. ity of 19:13: Medical Branch venlafaxine 2019-12 Yes 75mg Take 75 mg [facility] (EFFEXOR) 0-02 by mouth ity of 75 mg 19:13: daily. [place] tablet 31 [facility] Branch VITAMIN 2019- Yes Take by [facility] B-12 ORAL 0-02 mouth. 3-4 ity of 19:13: times [place] 31 daily/ [facility] celecoxib 2019- Yes 200mg Take 200 [facility] (CELEBREX) 0-02 mg by ity of 200 mg 19:13: mouth [place] capsule 31 daily. Medical Branch Amlodipine- 2019-12 Yes Take by [facility] vers Valsartan-H 0-02 mouth. ity of CTZ 19:13: [place] [facility] 10-320-25 mg Tab esomeprazol 2019-12 Yes 40mg Take 40 mg [facility] e (NEXIUM) 0-02 by mouth ity o f 40 mg 19:13: daily with [place] capsule 31 breakfast. Medica l Branch REOCYTE 2019-12 Yes Take by [facility] PLUS ORAL 0-02 mouth. ity of 19:13: [place] [address] Medical Branch venlafaxine 2019-12 Yes 75mg Take 75 mg [facility] (EFFEXOR) 0-02 by mouth ity of 75 mg 19:13: daily. [place] tablet Medical Branch celecoxib 2019-12 Yes 200mg Take 200 [facility] (CELEBREX) 0-02 mg by ity of 200 mg 14:13: mouth [place] capsule 31 daily. Medical Branch Amlodipine- 2019-12 Yes Take by [facility] vers Valsartan-H 0-02 mouth. ity of CTZ 14:13: [place] ([facility] 31 Medical HCT) Branch 10-320-25 mg Tab esomeprazol 2019-12 Yes 40mg Take 40 mg [facility] e (NEXIUM) 0-02 by mouth ity o f 40 mg 14:13: daily with [place] capsule 31 breakfast. Medica l Branch REOCYTE 2019-12 Yes Take by [facility] PLUS ORAL 0-02 mouth. ity of 14:13: [address] venlafaxine 2019-12 Yes 75mg Take 75 mg [facility] (EFFEXOR) 0-02 by mouth ity of 75 mg 14:13: daily. [place] [address] Medical Branch VITAMIN 2019-12 Yes Take by [facility] B-12 ORAL 0-02 mouth. 3-4 ity of 14:13: times [place] 31 daily/ [facility] celecoxib 2019-12 Yes 200mg Take 200 [facility] (CELEBREX) 0-02 mg by ity of 200 mg 14:13: mouth [place] capsule 31 daily. Medical Branch Amlodipine- 2019-12 Yes Take by [facility] vers Valsartan-H 0-02 mouth. ity of CTZ 14:13: [place] [facility] 10-320-25 mg Tab esomeprazol 2019-12 Yes 40mg Take 40 mg [facility] e (NEXIUM) 0-02 by mouth ity o f 40 mg 14:13: daily with [place] capsule 31 breakfast. Medica l Branch REOCYTE 2019-12 Yes Take by [facility] PLUS ORAL 0-02 mouth. ity of 14:13: [place] [address] Medical Branch venlafaxine 2019-12 Yes 75mg Take 75 mg [facility] (EFFEXOR) 0-02 by mouth ity of 75 mg 14:13: daily. [place] tablet Medical Branch VITAMIN 2019- Yes Take by [facility] B-12 ORAL 0-02 mouth. 3-4 ity of 14:13: times [place] 31 daily/ [facility] Liquid Branch celecoxib 2019-12 Yes 200mg Take 200 [facility] vers (CELEBREX) 0-02 mg by ity of 200 mg 14:13: mouth [place] capsule 31 daily. Medical Branch Amlodipine- 2019-12 Yes Take by [facility] vers Valsartan-H 0-02 mouth. ity of CTZ 14:13: [place] [facility] Branch 10-320-25 mg Tab esomeprazol 2019-12 Yes 40mg Take 40 mg [facility] e (NEXIUM) 0-02 by mouth ity o f 40 mg 14:13: daily with [place] capsule 31 breakfast. Medica l Branch REOCYTE 2019-12 Yes Take by [facility] PLUS ORAL 0-02 mouth. ity of 14:13: [address] venlafaxine 2019-12 Yes 75mg Take 75 mg [facility] (EFFEXOR) 0-02 by mouth ity of 75 mg 14:13: daily. [place] tablet [address] [place] [address] VITAMIN 2019-12 Yes Take by [facility] B-12 ORAL 0-02 mouth. 3-4 ity of 14:13: times [place] 31 daily/ [facility] celecoxib 2019- Yes 200mg Take 200 [facility] vers (CELEBREX) 0-02 mg by ity of 200 mg 14:13: mouth [place] capsule 31 daily. Medical Branch Amlodipine- 2019-12 Yes Take by Uni vers Valsartan-H 0-02 mouth. ity of CTZ 14:13: [place] ([facility] 31 Medical HCT) Branch 10-320-25 mg Tab esomeprazol 2019-12 Yes 40mg Take 40 mg [facility] e (NEXIUM) 0-02 by mouth ity o f 40 mg 14:13: daily with [place] capsule 31 breakfast. Medica l Branch REOCYTE 2019- Yes Take by [facility] PLUS ORAL 0-02 mouth. ity of 14:13: [place] 31 Medical Branch venlafaxine 2019- Yes 75mg Take 75 mg [facility] (EFFEXOR) 0-02 by mouth ity of 75 mg 14:13: daily. [place] [facility] 31 Medical Branch VITAMIN 2019- Yes Take by [facility] B-12 ORAL 0-02 mouth. 3-4 ity of 14:13: times [place] 31 daily/ Medical Liquid Branch EC-NAPROXEN 2020-0 Yes Univer s 500 mg EC 9-28 ity of tablet 00:00: [place] [address] Medical Branch EC-NAPROXEN 2020-0 Yes Univer s 500 mg EC 9-28 ity of tablet 00:00: [place] [address] Medical Branch EC-NAPROXEN 2020-0 Yes Univer s 500 mg EC 9-28 ity of tablet 00:00: [place] [address] Medical Branch EC-NAPROXEN 2020-0 Yes Univer s 500 mg EC 9-28 ity of tablet 00:00: [place] [address] Medical Branch EC-NAPROXEN 2020-0 Yes Univer s 500 mg EC 9-28 ity of tablet 00:00: [place] [address] Medical Branch EC-NAPROXEN 2020-0 Yes Univer s 500 mg EC 9-28 ity of tablet 00:00: [place] [address] Medical Branch EC-NAPROXEN 2020-0 Yes Univer s 500 mg EC 9-28 ity of tablet 00:00: [place] [address] Medical Branch EC-NAPROXEN 2020-0 Yes Univer s 500 mg EC 9-28 ity of tablet 00:00: [place] [address] Medical Branch EC-NAPROXEN 2020-0 Yes Univer s 500 mg EC 9-28 ity of tablet 00:00: [place] [address] Medical Branch EC-NAPROXEN 2020-0 Yes Univer s 500 mg EC 9-28 ity of tablet 00:00: [place] [address] Medical Branch EC-NAPROXEN 2020-0 Yes Univer s 500 mg EC 9-28 ity of tablet 00:00: [place] [address] Medical Branch EC-NAPROXEN 2020-0 Yes Univer s 500 mg EC 9-28 ity of tablet 00:00: [place] [address] Medical Branch EC-NAPROXEN 2020-0 Yes Univer s 500 mg EC 9-28 ity of tablet 00:00: [place] [address] Medical Branch EC-NAPROXEN 2020-0 Yes Univer s 500 mg EC 9-28 ity of tablet 00:00: [place] 00 Medical Branch EC-NAPROXEN 2020-0 Yes Univer s 500 mg EC 9-28 ity of tablet 00:00: [place] 00 Medical Branch EC-NAPROXEN 2020-0 Yes Univer s 500 mg EC 9-28 ity of tablet 00:00: [place] 00 Medical Branch EC-NAPROXEN 2020-0 Yes Univer s 500 mg EC 9-28 ity of tablet 00:00: [place] 00 Medical Branch EC-NAPROXEN 2020-0 Yes Univer s 500 mg EC 9-28 ity of tablet 00:00: [place] [address] Medical Branch EC-NAPROXEN 2020-0 Yes Univer s 500 mg EC 9-28 ity of tablet 00:00: [place] [address] Medical Branch EC-NAPROXEN 2020-0 Yes Univer s 500 mg EC 9-28 ity of tablet 00:00: [place] [address] Medical Branch EC-NAPROXEN 2020-0 Yes Univer s 500 mg EC 9-28 ity of tablet 00:00: [place] [address] Medical Branch EC-NAPROXEN 2020-0 Yes Univer s 500 mg EC 9-28 ity of tablet 00:00: [place] [address] Medical Branch EC-NAPROXEN 2020-0 Yes Univer s 500 mg EC 9-28 ity of tablet 00:00: [place] [address] Medical Branch EC-NAPROXEN 2020-0 Yes Univer s 500 mg EC 9-28 ity of tablet 00:00: [place] [address] Medical Branch EC-NAPROXEN 2020-0 Yes Univer s 500 mg EC 9-28 ity of tablet 00:00: [place] 00 Medical Branch EC-NAPROXEN 2020-0 Yes Univer s 500 mg EC 9-28 ity of tablet 00:00: [place] 00 [facility] Branch EC-NAPROXEN 2020-0 Yes Univer s 500 mg EC 9-28 ity of tablet 00:00: [place] 00 Medical Branch EC-NAPROXEN 2020-0 Yes Univer s 500 mg EC 9-28 ity of tablet 00:00: [place] 00 Medical Branch EC-NAPROXEN 2020-0 Yes Univer s 500 mg EC 9-28 ity of tablet 00:00: [place] 00 Medical Branch EC-NAPROXEN 2020-0 Yes Univer s 500 mg EC 9-28 ity of tablet 00:00: [place] 00 Medical Branch EC-NAPROXEN 2020-0 Yes Univer s 500 mg EC 9-28 ity of tablet 00:00: [place] 00 Medical Branch EC-NAPROXEN 2020-0 Yes Univer s 500 mg EC 9-28 ity of tablet 00:00: [place] 00 Medical Branch EC-NAPROXEN 2020-0 Yes Univer s 500 mg EC 9-28 ity of tablet 00:00: [place] [address] Medical Branch EC-NAPROXEN 2020-0 Yes Univer s 500 mg EC 9-28 ity of tablet 00:00: [place] [address] Medical Branch EC-NAPROXEN 2020-0 Yes Univer s 500 mg EC 9-28 ity of tablet 00:00: [place] [address] Medical Branch EC-NAPROXEN 2020-0 Yes Univer s 500 mg EC 9-28 ity of tablet 00:00: [place] [address] Medical Branch EC-NAPROXEN 2020-0 Yes Univer s 500 mg EC 9-28 ity of tablet 00:00: [place] [address] Medical Branch EC-NAPROXEN 2020-0 Yes Univer s 500 mg EC 9-28 ity of tablet 00:00: [place] [address] Medical Branch EC-NAPROXEN 2020-0 Yes Univer s 500 mg EC 9-28 ity of tablet 00:00: [place] [address] Medical Branch EC-NAPROXEN 2020-0 Yes Univer s 500 mg EC 9-28 ity of tablet 00:00: [place] [address] Medical Branch EC-NAPROXEN 2020-0 Yes Univer s 500 mg EC 9-28 ity of tablet 00:00: [place] [address] Medical Branch EC-NAPROXEN 2020-0 Yes Univer s 500 mg EC 9-28 ity of tablet 00:00: [place] [address] Medical Branch EC-NAPROXEN 2020-0 Yes Univer s 500 mg EC 9-28 ity of tablet 00:00: [place] [address] Medical Branch EC-NAPROXEN 2020-0 Yes Univer s 500 mg EC 9-28 ity of tablet 00:00: [place] [address] Medical Branch anastrozole 2020-0 Yes Take by Uni vers 1 mg tablet 08-09 mouth ity of 00:00: [place] 00 Medical Branch HYDROcodone 2020-0 Yes Univer s -acetaminop 08-09 ity of hen 10-325 00:00: [place] mg tablet 00 Medical Branch anastrozole 2020-0 Yes Take by Uni vers 1 mg tablet 9-09 mouth ity of 00:00: [place] 00 Medical Branch HYDROcodone 2020-0 Yes Univer s -acetaminop 9-09 ity of hen 10-325 00:00: [place] mg tablet 00 Medical Branch anastrozole 2020-0 Yes Take by Uni vers 1 mg tablet 9-09 mouth ity of 00:00: [place] 00 [facility] Branch HYDROcodone 2020-0 Yes Univer s -acetaminop 9-09 ity of hen 10-325 00:00: [place] mg tablet 00 Medical Branch anastrozole 2020-0 Yes Take by Uni vers 1 mg tablet 9-09 mouth ity of 00:00: [place] 00 [facility] Branch HYDROcodone 2020-0 Yes Univer s -acetaminop 9-09 ity of hen 10-325 00:00: [place] mg tablet 00 Medical Branch anastrozole 2020-0 Yes Take by [facility] vers 1 mg tablet 9-09 mouth ity of 00:00: [place] 00 [facility] Branch HYDROcodone 2020-0 Yes Univer s -acetaminop 9-09 ity of hen 10-325 00:00: [place] mg tablet 00 Medical Branch anastrozole 2020-0 Yes Take by Uni vers 1 mg tablet 9-09 mouth ity of 00:00: [place] 00 Medical Branch HYDROcodone 2020-0 Yes Univer s -acetaminop 9-09 ity of hen 10-325 00:00: [place] mg tablet 00 Medical Branch anastrozole 2020-0 Yes Take by Uni vers 1 mg tablet 9-09 mouth ity of 00:00: [place] 00 [facility] Branch HYDROcodone 2020-0 Yes Univer s -acetaminop 9-09 ity of hen 10-325 00:00: [place] mg tablet 00 Medical Branch anastrozole 2020-0 Yes Take by [facility] vers 1 mg tablet 9-09 mouth ity of 00:00: [place] 00 [facility] Branch HYDROcodone 2020-0 Yes Univer s -acetaminop 9-09 ity of hen 10-325 00:00: [place] mg tablet 00 Medical Branch anastrozole 2020-0 Yes Take by Uni vers 1 mg tablet 9-09 mouth ity of 00:00: [place] 00 [facility] Branch HYDROcodone 2020-0 Yes Univer s -acetaminop 9-09 ity of hen 10-325 00:00: [place] mg tablet 00 Medical Branch anastrozole 2020-0 Yes Take by Uni vers 1 mg tablet 9-09 mouth ity of 00:00: [place] 00 [facility] Branch HYDROcodone 2020-0 Yes Univer s -acetaminop 9-09 ity of hen 10-325 00:00: [place] mg tablet 00 Medical Branch anastrozole 2020-0 Yes Take by Uni vers 1 mg tablet 9-09 mouth ity of 00:00: [place] 00 [facility] Branch HYDROcodone 2020-0 Yes Univer s -acetaminop 9-09 ity of hen 10-325 00:00: [place] mg tablet 00 Medical Branch anastrozole 2020-0 Yes Take by [facility] vers 1 mg tablet 9-09 mouth ity of 00:00: [place] 00 [facility] Branch HYDROcodone 2020-0 Yes Univer s -acetaminop 9-09 ity of hen 10-325 00:00: [place] mg tablet 00 Medical Branch anastrozole 2020-0 Yes Take by [facility] vers 1 mg tablet 9- mouth ity of 00:00: [place] 00 [facility] Branch HYDROcodone 2020-0 Yes Univer s -acetaminop 9-09 ity of hen 10-325 00:00: [place] mg tablet 00 Medical Branch anastrozole 2020-0 Yes Take by Uni vers 1 mg tablet 9-09 mouth ity of 00:00: [place] 00 Medical Branch HYDROcodone 2020-0 Yes Univer s -acetaminop 9-09 ity of hen 10-325 00:00: [place] mg tablet 00 Medical Branch anastrozole 2020-0 Yes Take by Uni vers 1 mg tablet 9-09 mouth ity of 00:00: [place] 00 [facility] Branch HYDROcodone 2020-0 Yes Univer s -acetaminop 9-09 ity of hen 10-325 00:00: [place] mg tablet 00 Medical Branch anastrozole 2020-0 Yes Take by Uni vers 1 mg tablet 9-09 mouth ity of 00:00: [place] 00 [facility] Branch HYDROcodone 2020-0 Yes Univer s -acetaminop 9-09 ity of hen 10-325 00:00: [place] mg tablet 00 Medical Branch anastrozole 2020-0 Yes Take by Uni vers 1 mg tablet 9-09 mouth ity of 00:00: [place] 00 [facility] Branch HYDROcodone 2020-0 Yes Univer s -acetaminop 9-09 ity of hen 10-325 00:00: [place] mg tablet 00 Medical Branch anastrozole 2020-0 Yes Take by [facility] vers 1 mg tablet 9-09 mouth ity of 00:00: [place] 00 [facility] Branch HYDROcodone 2020-0 Yes Univer s -acetaminop 9-09 ity of hen 10-325 00:00: [place] mg tablet 00 Medical Branch anastrozole 2020-0 Yes Take by Uni vers 1 mg tablet 9-09 mouth ity of 00:00: [place] 00 [facility] Branch HYDROcodone 2020-0 Yes Univer s -acetaminop 9-09 ity of hen 10-325 00:00: [place] mg tablet 00 Medical Branch anastrozole 2020-0 Yes Take by Uni vers 1 mg tablet 9-09 mouth ity of 00:00: [place] 00 [facility] Branch HYDROcodone 2020-0 Yes Univer s -acetaminop 9-09 ity of hen 10-325 00:00: [place] mg tablet 00 Medical Branch anastrozole 2020-0 Yes Take by [facility] vers 1 mg tablet 9-09 mouth ity of 00:00: [place] 00 [facility] Branch HYDROcodone 2020-0 Yes Univer s -acetaminop 9- ity of hen 10-325 00:00: [place] mg tablet 00 Medical Branch anastrozole 2020-0 Yes Take by [facility] vers 1 mg tablet 9-09 mouth ity of 00:00: [place] 00 [facility] Branch HYDROcodone 2020-0 Yes Univer s -acetaminop 9- ity of hen 10-325 00:00: [place] mg tablet 00 Medical Branch anastrozole 2020-0 Yes Take by [facility] vers 1 mg tablet 9-09 mouth ity of 00:00: [place] 00 [facility] Branch HYDROcodone 2020-0 Yes Univer s -acetaminop 9- ity of hen 10-325 00:00: [place] mg tablet 00 Medical Branch anastrozole 2020-0 Yes Take by Uni vers 1 mg tablet 9-09 mouth ity of 00:00: [place] 00 [facility] Branch HYDROcodone 2020-0 Yes Univer s -acetaminop 9-09 ity of hen 10-325 00:00: [place] mg tablet 00 Medical Branch anastrozole 2020-0 Yes Take by [facility] vers 1 mg tablet 9-09 mouth ity of 00:00: [place] 00 [facility] Branch HYDROcodone 2020-0 Yes Univer s -acetaminop 9-09 ity of hen 10-325 00:00: [place] mg tablet 00 Medical Branch anastrozole 2020-0 Yes Take by [facility] vers 1 mg tablet 9-09 mouth ity of 00:00: [place] 00 [facility] Branch HYDROcodone 2020-0 Yes Univer s -acetaminop 9-09 ity of hen 10-325 00:00: [place] mg tablet 00 Medical Branch anastrozole 2020-0 Yes Take by [facility] vers 1 mg tablet 9-09 mouth ity of 00:00: [place] 00 [facility] Branch HYDROcodone 2020-0 Yes Univer s -acetaminop 9-09 ity of hen 10-325 00:00: [place] mg tablet 00 Medical Branch anastrozole 2020-0 Yes Take by [facility] vers 1 mg tablet 9-09 mouth ity of 00:00: [place] 00 [facility] Branch HYDROcodone 2020-0 Yes Univer s -acetaminop 9-09 ity of hen 10-325 00:00: [place] mg tablet 00 [facility] Branch anastrozole 2020-0 Yes Take by [facility] vers 1 mg tablet 9-09 mouth ity of 00:00: [place] 00 [facility] Branch HYDROcodone 2020-0 Yes Univer s -acetaminop 9-09 ity of hen 10-325 00:00: [place] mg tablet 00 Medical Branch anastrozole 2020-0 Yes Take by Uni vers 1 mg tablet 9-09 mouth ity of 00:00: [place] 00 [facility] Branch HYDROcodone 2020-0 Yes Univer s -acetaminop 9- ity of hen 10-325 00:00: [place] mg tablet 00 Medical Branch anastrozole 2020-0 Yes Take by Uni vers 1 mg tablet 9-09 mouth ity of 00:00: [place] 00 [facility] Branch HYDROcodone 2020-0 Yes Univer s -acetaminop 9-09 ity of hen 10-325 00:00: [place] mg tablet 00 Medical Branch anastrozole 2020-0 Yes Take by Uni vers 1 mg tablet 9-09 mouth ity of 00:00: [place] 00 [facility] Branch HYDROcodone 2020-0 Yes Univer s -acetaminop 9-09 ity of hen 10-325 00:00: [place] mg tablet 00 [facility] Branch anastrozole 2020-0 Yes Take by [facility] vers 1 mg tablet 9-09 mouth ity of 00:00: [place] 00 [facility] Branch HYDROcodone 2020-0 Yes Univer s -acetaminop 9-09 ity of hen 10-325 00:00: [place] mg tablet 00 Medical Branch anastrozole 2020-0 Yes Take by [facility] vers 1 mg tablet 9-09 mouth ity of 00:00: [place] 00 [facility] Branch HYDROcodone 2020-0 Yes Univer s -acetaminop 9-09 ity of hen 10-325 00:00: [place] mg tablet 00 Medical Branch anastrozole 2020-0 Yes Take by Uni vers 1 mg tablet 9-09 mouth ity of 00:00: [place] 00 [facility] Branch HYDROcodone 2020-0 Yes Univer s -acetaminop 9-09 ity of hen 10-325 00:00: [place] mg tablet 00 Medical Branch anastrozole 2020-0 Yes Take by [facility] vers 1 mg tablet 9- mouth ity of 00:00: [place] 00 [facility] Branch HYDROcodone 2020-0 Yes Univer s -acetaminop 9- ity of hen 10-325 00:00: [place] mg tablet 00 Medical Branch anastrozole 2020-0 Yes Take by [facility] vers 1 mg tablet 9- mouth ity of 00:00: [place] 00 [facility] Branch HYDROcodone 2020-0 Yes Univer s -acetaminop 9- ity of hen 10-325 00:00: [place] mg tablet 00 Medical Branch anastrozole 2020-0 Yes Take by [facility] vers 1 mg tablet 08-09 mouth ity of 00:00: [place] 00 Medical Branch HYDROcodone 2020-0 Yes Univer s -acetaminop - ity of hen 10-325 00:00: [place] mg tablet 00 [facility] anastrozole 2020-0 Yes Take by Uni vers 1 mg tablet 9 mouth ity of 00:00: [place] 00 [facility] HYDROcodone 2020-0 Yes Univer s -acetaminop - ity of hen 10-325 00:00: [place] mg tablet 00 [facility] anastrozole 2020-0 Yes Take by Uni vers 1 mg tablet 08-09 mouth ity of 00:00: [place] 00 [facility] HYDROcodone 2020-0 Yes Univer s -acetaminop 9- ity of hen 10-325 00:00: [place] mg tablet 00 [facility] anastrozole 2020-0 Yes Take by Uni vers 1 mg tablet 9-09 mouth ity of 00:00: [place] 00 [facility] HYDROcodone 2020-0 Yes Univer s -acetaminop 9-09 ity of hen 10-325 00:00: [place] mg tablet 00 [facility] anastrozole 2020-0 Yes Take by Uni vers 1 mg tablet 9-09 mouth ity of 00:00: [place] 00 [facility] HYDROcodone 2020-0 Yes Univer s -acetaminop 9-09 ity of hen 10-325 00:00: [place] mg tablet 00 [facility] anastrozole 2020-0 Yes Take by Uni vers 1 mg tablet 08-09 mouth ity of 00:00: [place] [facility] HYDROcodone 2020-0 Yes Univer s -acetaminop 9-09 ity of hen 10-325 00:00: [place] mg tablet 00 [facility] anastrozole 2020-0 Yes Take by Uni vers 1 mg tablet 9-09 mouth ity of 00:00: [place] [facility] HYDROcodone 2020-0 Yes Univer s -acetaminop 9-09 ity of hen 10-325 00:00: [place] mg tablet 00 [facility] lisinopriL 2020-0 Yes Univers 20 mg 7-15 ity of tablet 00:00: [place] [facility] lisinopriL 2020-0 Yes Univers 20 mg 7-15 ity of tablet 00:00: [place] [facility] lisinopriL 2020-0 Yes Univers 20 mg 7-15 ity of tablet 00:00: [place] [facility] lisinopriL 2020-0 Yes Univers 20 mg 7-15 ity of tablet 00:00: [place] [address] [facility] lisinopriL 2020-0 Yes Univers 20 mg 7-15 ity of tablet 00:00: [place] [facility] lisinopriL 2020-0 Yes Univers 20 mg 7-15 ity of tablet 00:00: [place] [address] [facility] lisinopriL 2020-0 Yes Univers 20 mg 7-15 ity of tablet 00:00: [place] [address] [facility] lisinopriL 2020-0 Yes Univers 20 mg 7-15 ity of tablet 00:00: [place] [address] [facility] lisinopriL 2020-0 Yes Univers 20 mg 7-15 ity of tablet 00:00: [place] [address] [facility] lisinopriL 2020-0 Yes Univers 20 mg 7-15 ity of tablet 00:00: [place] [facility] lisinopriL 2020-0 Yes Univers 20 mg 7-15 ity of tablet 00:00: [place] [address] [facility] lisinopriL 2020-0 Yes Univers 20 mg 7-15 ity of tablet 00:00: [place] [address] [facility] lisinopriL 2020-0 Yes Univers 20 mg 7-15 ity of tablet 00:00: [place] [address] [facility] lisinopriL 2020-0 Yes Univers 20 mg 7-15 ity of tablet 00:00: [place] [address] [facility] lisinopriL 2020-0 Yes Univers 20 mg 7-15 ity of tablet 00:00: [place] [address] [facility] lisinopriL 2020-0 Yes Univers 20 mg 7-15 ity of tablet 00:00: [place] [address] [facility] lisinopriL 2020-0 Yes Univers 20 mg 7-15 ity of tablet 00:00: [place] [address] [facility] lisinopriL 2020-0 Yes Univers 20 mg 7-15 ity of tablet 00:00: [place] [address] [facility] lisinopriL 2020-0 Yes Univers 20 mg 7-15 ity of tablet 00:00: [place] [address] [facility] lisinopriL 2020-0 Yes Univers 20 mg 7-15 ity of tablet 00:00: [place] [address] [facility] lisinopriL 2020-0 Yes Univers 20 mg 7-15 ity of tablet 00:00: [place] [address] [facility] lisinopriL 2020-0 Yes Univers 20 mg 7-15 ity of tablet 00:00: [place] [address] [facility] lisinopriL 2020-0 Yes Univers 20 mg 7-15 ity of tablet 00:00: [place] [address] [facility] lisinopriL 2020-0 Yes Univers 20 mg 7-15 ity of tablet 00:00: [place] [address] [facility] lisinopriL 2020-0 Yes Univers 20 mg 7-15 ity of tablet 00:00: [place] [address] [facility] lisinopriL 2020-0 Yes Univers 20 mg 7-15 ity of tablet 00:00: [place] [address] [facility] lisinopriL 2020-0 Yes Univers 20 mg 7-15 ity of tablet 00:00: [place] [address] [facility] lisinopriL 2020-0 Yes Univers 20 mg 7-15 ity of tablet 00:00: [place] [address] [facility] lisinopriL 2020-0 Yes Univers 20 mg 7-15 ity of tablet 00:00: [place] [address] [facility] lisinopriL 2020-0 Yes Univers 20 mg 7-15 ity of tablet 00:00: [place] [address] [facility] lisinopriL 2020-0 Yes Univers 20 mg 7-15 ity of tablet 00:00: [place] [address] [facility] lisinopriL 2020-0 Yes Univers 20 mg 7-15 ity of tablet 00:00: [place] [address] [facility] lisinopriL 2020-0 Yes Univers 20 mg 7-15 ity of tablet 00:00: [place] [address] [facility] lisinopriL 2020-0 Yes Univers 20 mg 7-15 ity of tablet 00:00: [place] [address] [facility] lisinopriL 2020-0 Yes Univers 20 mg 7-15 ity of tablet 00:00: [place] [facility] lisinopriL 2020-0 Yes Univers 20 mg 7-15 ity of tablet 00:00: [place] [facility] lisinopriL 2020-0 Yes Univers 20 mg 7-15 ity of tablet 00:00: [place] [facility] lisinopriL 2020-0 Yes Univers 20 mg 7-15 ity of tablet 00:00: [place] [facility] lisinopriL 2020-0 Yes Univers 20 mg 7-15 ity of tablet 00:00: [place] [facility] lisinopriL 2020-0 Yes Univers 20 mg 7-15 ity of tablet 00:00: [place] [facility] lisinopriL 2020-0 Yes Univers 20 mg 7-15 ity of tablet 00:00: [place] [facility] lisinopriL 2020-0 Yes Univers 20 mg 7-15 ity of tablet 00:00: [place] [facility] lisinopriL 2020-0 Yes Univers 20 mg 7-15 ity of tablet 00:00: [place] [facility] lisinopriL 2020-0 Yes Univers 20 mg 7-15 ity of tablet 00:00: [place] [facility] Hydrocodone 2020-0 No General 1TAB Every [address] [facility] /Acetaminop 4-10 [facility] [place] ([place]) Hydrocodone 2020-0 No General 1TAB Every [address] [facility] /Acetaminop 4-10 Acute [facility] Hours [facility] [place] ([place]) Hydrocodone 2020-0 No General 1TAB Every [address] [facility] /Acetaminop 4-08 Acute Care Hours [facility] [place] ([place]) Hydrochloro 2020-0 No General 25MG As Needed [facility] thiazide 4-08 Acute Care PRN For Marium kes - 00:00: [facility] htn [facility] 00 [place] ([place]) Hydroxyzine 2020-0 No General 50MG Three [facility] Acute [facility] Times [facility] - 00:[facility]: [facility] Daily [facility]N [facility] 00 For [place] ([place]) Lisinopril 2020-0 No General 20MG Bedtime C HI [facility] 4-08 [facility] Care [facility] - [facility] 00 [place]) Methocarbam 2020-0 No General 1000MG Four Times [facility]-08 Acute Care Daily PRN [facility] - 00:[facility] Spasm Alvaro Roz[place]) Asenapine 2020-0 No General 10MG Bedtime [facility] Maleate 4-08 [facility] Care [facility] - [facility]: [facility] [place]) Aspirin 2020-0 No General 81MG Daily [facility] - [facility]: [facility] [place]) Atorvastati 2020-0 No General 40MG Bedtime [facility] Calcium 4-08 Acute Care Luke s - 00:00: [facility] Al[facility] [place]) Carvedilol 2020-0 No General 12.5MG Twice [facility] 4-08 Acute Care Daily [facility] - 00:[facility]: [facility] [place]) Fluoxetine 2020-0 No General 10MG Bedtime C HI [facility] Hcl 4-08 Acute Care [facility] - 00:[facility]: [facility] Al[facility] [place]) Gabapentin 2020-0 No General 600MG Three [facility]-08 [facility] Times [facility] - [facility] Daily [facility] 00 Alvaro [place]) Hydrocodone 2020-0 No General 1TAB Every [address] [facility] /Acetaminop 4-08 Acute Care Hours [facility]N [facility] [place] Hydrochloro 2020-0 No General 25MG As Needed [facility] thiazide 4-08 Acute Care PRN For Marium kes - 00:00: Hospital htn [facility] Al[facility] [place]) Hydroxyzine 2020-0 No General 50MG Three [facility]-08 Acute [facility] Times [facility] - 00:[facility]: [facility] Daily [facility]N [facility] 00 For Alvaro [place] Hand[place]) Lisinopril 2020-0 No General 20MG Bedtime C [facility] 4-08 [facility] - 00:[facility]: [facility] Al[facility] Handy) Methocarbam 2020-0 No General 1000MG Four Times [facility] 4-08 Acute Care Daily PRN [facility] - 00:00[facility] Spasm Alvaro Handy) Asenapine 2020-0 No General 10MG Bedtime [facility] Male[place] 4-08 [facility] Care [facility] - 00:[facility]: [facility] 00 [place] ([place]) Aspirin 2019-0 No General 81MG Daily [facility] - 00:[facility]: [facility] 00 Alvaro Roz[place]) Atorvastati 2019-0 No General 40MG Bedtime [facility] Calcium 4-08 Acute Care Luke s - 00:00: [facility] Al[facility] Roz[place]) Carvedilol 2019-0 No General 12.5MG Twice [facility] 4-08 Acute Care Daily [facility] - 00:[facility]: [facility] 00 Alvar[place] Roz[place]) Fluoxetine 2019-0 No General 10MG Bedtime C HI [facility] Hcl 4-08 Acute Care [facility] - 00:00: [facility] [place]) Gabapentin 2019-0 No General 600MG Three [facility] 4-08 Acute Care Times [facility] - 00:[facility]: [facility] Daily [facility] 00 Alvaro Roz[place]) dexamethaso 2010-0 Yes 1mg Take 1 Tab Univers ne 7-29 by mouth. ity of (DECADRON) 00:[place] tablet 00 11:00pm Medic al and have Branch blood drawn at 8:00am the following morning. dexamethaso 2010-0 Yes 1mg Take 1 Tab Univers ne 7-29 by mouth. ity of (DECADRON) 00:00[place] 1 mg tablet 00 11:00pm Medic al and have Branch blood drawn at 8:00am the following morning. dexamethaso 2010-0 Yes 1mg Take 1 Tab Univers ne 7-29 by mouth. ity of (DECADRON) 00:00: [place] 1 mg tablet 00 11:00pm Medic al and have Branch blood drawn at 8:00am the following morning. dexamethaso 2010-0 Yes 1mg Take 1 Tab Univers ne 7-29 by mouth. ity of (DECADRON) 00:00: [place] 1 mg tablet 00 11:00pm Medic al and have Branch blood drawn at 8:00am the following morning. dexamethaso 2010-0 Yes 1mg Take 1 Tab Univers ne 7-29 by mouth. ity of (DECADRON) 00:00: [place] 1 mg tablet 00 11:00pm Medic al and have Branch blood drawn at 8:00am the following morning. dexamethaso 2010-0 Yes 1mg Take 1 Tab Univers ne 7-29 by mouth. ity of (DECADRON) 00:00: [place] 1 mg tablet 00 11:00pm Medic al and have Branch blood drawn at 8:00am the following morning. dexamethaso 2010-0 Yes 1mg Take 1 Tab Univers ne 7-29 by mouth. ity of (DECADRON) 00:00: [place] 1 mg tablet 00 11:00pm Medic al and have Branch blood drawn at 8:00am the following morning. dexamethaso 2010-0 Yes 1mg Take 1 Tab Univers ne 7-29 by mouth. ity of (DECADRON) 00:00: [place] 1 mg tablet 00 11:00pm Medic al and have Branch blood drawn at 8:00am the following morning. dexamethaso 2010-0 Yes 1mg Take 1 Tab Univers ne 7-29 by mouth. ity of (DECADRON) 00:00: [place] 1 mg tablet 00 11:00pm Medic al and have Branch blood drawn at 8:00am the following morning. dexamethaso 2010-0 Yes 1mg Take 1 Tab Univers ne 7-29 by mouth. ity of (DECADRON) 00:00: [place] 1 mg tablet 00 11:00pm Medic al and have Branch blood drawn at 8:00am the following morning. dexamethaso 2010-0 Yes 1mg Take 1 Tab Univers ne 7-29 by mouth. ity of (DECADRON) 00:00: [place] 1 mg tablet 00 11:00pm Medic al and have Branch blood drawn at 8:00am the following morning. dexamethaso 2010-0 Yes 1mg Take 1 Tab Univers ne 7-29 by mouth. ity of (DECADRON) 00:00: [place] 1 mg tablet 00 11:00pm Medic al and have Branch blood drawn at 8:00am the following morning. dexamethaso 2010-0 Yes 1mg Take 1 Tab Univers ne 7-29 by mouth. ity of (DECADRON) 00:00: [place] 1 mg tablet 00 11:00pm Medic al and have Branch blood drawn at 8:00am the following morning. dexamethaso 2010-0 Yes 1mg Take 1 Tab Univers ne 7-29 by mouth. ity of (DECADRON) 00:00: [place] 1 mg tablet 00 11:00pm Medic al and have Branch blood drawn at 8:00am the following morning. dexamethaso 2010-0 Yes 1mg Take 1 Tab Univers ne 7-29 by mouth. ity of (DECADRON) 00:00: [place] 1 mg tablet 00 11:00pm Medic al and have Branch blood drawn at 8:00am the following morning. dexamethaso 2010-0 Yes 1mg Take 1 Tab Univers ne 7-29 by mouth. ity of (DECADRON) 00:00: [place] 1 mg tablet 00 11:00pm Medic al and have Branch blood drawn at 8:00am the following morning. dexamethaso 2010-0 Yes 1mg Take 1 Tab Univers ne 7-29 by mouth. ity of (DECADRON) 00:00: [place] 1 mg tablet 00 11:00pm Medic al and have Branch blood drawn at 8:00am the following morning. dexamethaso 2010-0 Yes 1mg Take 1 Tab Univers ne 7-29 by mouth. ity of (DECADRON) 00:00: [place] 1 mg tablet 00 11:00pm Medic al and have Branch blood drawn at 8:00am the following morning. dexamethaso 2010-0 Yes 1mg Take 1 Tab Univers ne 7-29 by mouth. ity of (DECADRON) 00:00: [place] 1 mg tablet 00 11:00pm Medic al and have Branch blood drawn at 8:00am the following morning. dexamethaso 2010-0 Yes 1mg Take 1 Tab Univers ne 7-29 by mouth. ity of (DECADRON) 00:00: [place] 1 mg tablet 00 11:00pm Medic al and have Branch blood drawn at 8:00am the following morning. dexamethaso 2010-0 2021- No 1mg Take 1 Tab Univers ne 7-29 03-16 by mouth. ity of (DECADRON) 00:00: 00:00 Take at [place] 1 mg tablet 00 :00 11:00pm Medic al and have Branch blood drawn at 8:00am the following morning. Carvedilol Carvedilol Yes Ras [address] [facility] [address] [facility] with food [facility] Lisinopril Lisinopril Yes Ras [address] [facility] Atorvastati Atorvastati Yes Ras [address] n Calcium n Calcium [facility] ent [facility] Saphris Saphris Yes Ras [address] [facility] under the [facility] - tongue and St allow to [facility] ent [facility] Lortab Lortab Yes Ras 5 ml as [facility] needed [facility] Hydrochloro Hydrochloro Yes Ras [address] thiazide thiazide [facility] in the [facility] ent [facility] Robaxin-750 Robaxin-750 Yes Ras [address] [facility] [address] [facility] Vitamin D Vitamin D Yes Ras [address] [facility] Calcium Calcium Yes Ras 1 tab [facility] Anastrozole Anastrozole Yes Ras [address] [facility] Immunizations Ordered Filled Immunization Date Status Comments [facility] e Immunization Name Name Influenza Virus 2020-07-03 Completed Universit y of Vaccine Quad .5 mL 00:00:00 [facility] 6+ [place] Branch Influenza Virus 2020-07-03 Completed Universit y of Vaccine Quad .5 mL 00:00:00 [facility] 6+ [place] Branch Influenza Virus 2020-07-03 Completed Universit y of Vaccine Quad .5 mL 00:00:00 [facility] 6+ [place] Branch Influenza Virus 2020-07-03 Completed Universit y of Vaccine Quad .5 mL 00:00:00 [facility] 6+ [place] Branch Influenza Virus 2020-07-03 Completed Universit y of Vaccine Quad .5 mL 00:00:00 [facility] 6+ [place] Branch Influenza Virus 2020-07-03 Completed Universit y of Vaccine Quad .5 mL 00:00:00 [facility] 6+ [place] Branch Influenza Virus 2020-07-03 Completed Universit y of Vaccine Quad .5 mL 00:00:00 [place] [facility] 6+ [facility] Influenza Virus 2020-07-03 Completed Universit y of Vaccine Quad .5 mL 00:00:00 [place] [facility] 6+ [place] [facility] Influenza Virus 2020-07-03 Completed Universit y of Vaccine Quad .5 mL 00:00:00 [place] [facility] 6+ [place] [facility] Influenza Virus 2020-07-03 Completed Universit y of Vaccine Quad .5 mL 00:00:00 [place] [facility] 6+ [place] [facility] Influenza Virus 2020-07-03 Completed Universit y of Vaccine Quad .5 mL 00:00:00 [place] [facility] 6+ [place] [facility] Influenza Virus 2020-07-03 Completed Universit y of Vaccine Quad .5 mL 00:00:00 [place] [facility] 6+ [place] [facility] Influenza Virus 2020-07-03 Completed Universit y of Vaccine Quad .5 mL 00:00:00 [place] [facility] 6+ [place] [facility] Influenza Virus 2020-07-03 Completed Universit y of Vaccine Quad .5 mL 00:00:00 [place] [facility] 6+ [place] [facility] Influenza Virus 2020-07-03 Completed Universit y of Vaccine Quad .5 mL 00:00:00 [place] [facility] 6+ [place] [facility] Influenza Virus 2020-07-03 Completed Universit y of Vaccine Quad .5 mL 00:00:00 [place] [facility] 6+ [place] [facility] Influenza Virus 2020-07-03 Completed Universit y of Vaccine Quad .5 mL 00:00:00 [place] [facility] 6+ [place] [facility] Influenza Virus 2020-07-03 Completed Universit y of Vaccine Quad .5 mL 00:00:00 [place] [facility] 6+ [place] [facility] Influenza Virus 2020-07-03 Completed Universit y of Vaccine Quad .5 mL 00:00:00 [place] [facility] 6+ [place] [facility] Influenza Virus 2020-07-03 Completed Universit y of Vaccine Quad .5 mL 00:00:00 [place] [facility] 6+ [place] [facility] Influenza Virus 2020-07-03 Completed Universit y of Vaccine Quad .5 mL 00:00:00 [place] [facility] 6+ [place] [facility] Influenza Virus 2020-07-03 Completed Universit y of Vaccine Quad .5 mL 00:00:00 [place] [facility] 6+ [place] [facility] Influenza Virus 2020-07-03 Completed Universit y of Vaccine Quad .5 mL 00:00:00 [place] [facility] 6+ [place] [facility] Influenza Virus 2020-07-03 Completed Universit y of Vaccine Quad .5 mL 00:00:00 [place] [facility] 6+ [place] [facility] Influenza Virus 2020-07-03 Completed Universit y of Vaccine Quad .5 mL 00:00:00 [place] [facility] 6+ [place] [facility] Influenza Virus 2020-07-03 Completed Universit y of Vaccine Quad .5 mL 00:00:00 [place] [facility] 6+ [place] [facility] Influenza Virus 2020-07-03 Completed Universit y of Vaccine Quad .5 mL 00:00:00 [place] [facility] 6+ [place] [facility] Influenza Virus 2020-07-03 Completed Universit y of Vaccine Quad .5 mL 00:00:00 [place] [facility] 6+ [place] [facility] Influenza Virus 2020-07-03 Completed Universit y of Vaccine Quad .5 mL 00:00:00 [place] [facility] 6+ [place] [facility] Influenza Virus 2020-07-03 Completed Universit y of Vaccine Quad .5 mL 00:00:00 [place] [facility] 6+ [place] [facility] Influenza Virus 2020-07-03 Completed Universit y of Vaccine Quad .5 mL 00:00:00 [place] [facility] 6+ [place] [facility] Influenza Virus 2020-07-03 Completed Universit y of Vaccine Quad .5 mL 00:00:00 [place] [facility] 6+ [place] [facility] Influenza Virus 2020-07-03 Completed Universit y of Vaccine Quad .5 mL 00:00:00 [place] [facility] 6+ [place] [facility] Influenza Virus 2020-07-03 Completed Universit y of Vaccine Quad .5 mL 00:00:00 [place] [facility] 6+ [place] [facility] Influenza Virus 2020-07-03 Completed Universit y of Vaccine Quad .5 mL 00:00:00 [place] [facility] 6+ [place] [facility] Influenza Virus 2020-07-03 Completed Universit y of Vaccine Quad .5 mL 00:00:00 [place] [facility] 6+ [place] [facility] Influenza Virus 2020-07-03 Completed Universit y of Vaccine Quad .5 mL 00:00:00 [place] [facility] 6+ [place] [facility] Influenza Virus 2020-07-03 Completed Universit y of Vaccine Quad .5 mL 00:00:00 [place] [facility] 6+ [place] [facility] Influenza Virus 2020-07-03 Completed Universit y of Vaccine Quad .5 mL 00:00:00 [place] [facility] 6+ [place] [facility] Influenza Virus 2020-07-03 Completed Universit y of Vaccine Quad .5 mL 00:00:00 [place] [facility] 6+ [place] [facility] Influenza Virus 2020-07-03 Completed Universit y of Vaccine Quad .5 mL 00:00:00 [place] [facility] 6+ [place] [facility] Influenza Virus 2020-07-03 Completed Universit y of Vaccine Quad .5 mL 00:00:00 [facility] 6+ [place] [facility] Vital Signs Vital Name Observation Time Observation Value Comments Source Systolic blood 2021-04-23 16:53:00 125 mm[Hg] Univer sity of pressure [place] [facility] Diastolic blood 2021-04-23 16:53:00 85 mm[Hg] Unive rsity of pressure [place] [facility] Heart rate 2021-04-23 16:53:00 79 /min [facility]i ty of [place] [facility] Body weight 2021-04-23 16:53:00 118.842 kg [facility] [place] [facility] BMI 2021-04-23 16:53:00 36.54 kg/m2 [facility] of [place] [facility] [place] Oxygen saturation in 2021-04-23 16:53:00 98 /min University of Arterial blood by [facility] Pulse oximetry Branch Systolic blood 2021-01-05 20:36:00 112 mm[Hg] Univer sity of pressure [place] [facility] Diastolic blood 2021-01-05 20:36:00 71 mm[Hg] Unive rsity of pressure [place] [facility] Heart rate 2021-01-05 20:36:00 65 /min [facility]i ty of [place] [facility] Body temperature 2021-01-05 20:28:00 36.5 Yessica Univ ersity of [place] [facility] Respiratory rate 2021-01-05 20:28:00 18 /min Univ ersity of [place] [facility] Body height 2021-01-05 20:28:00 180.3 cm [facility]i [facility] of [place] [facility] Body weight 2021-01-05 20:28:00 119.341 kg [facility] [place] [facility] BMI 2021-01-05 20:28:00 36.70 kg/m2 [facility] [place] [facility] Oxygen saturation in 2021-01-05 20:28:00 98 /min University of Arterial blood by [facility] Pulse oximetry Branch Systolic blood 2020-09-01 19:17:00 120 mm[Hg] Univer sity of pressure [place] [facility] Diastolic blood 2020-09-01 19:17:00 78 mm[Hg] Unive rsity of pressure [place] [facility] Heart rate 2020-09-01 19:17:00 68 /min [facility]i ty of [place] [facility] Body temperature 2020-09-01 18:59:00 37 Yessica Univ ersity of [place] [facility] Respiratory rate 2020-09-01 18:59:00 20 /min Univ ersity of [place] [facility] [place] Body height 2020-09-01 18:59:00 180.3 cm [facility]i ty of [place] [facility] Body weight 2020-09-01 18:59:00 118.026 kg [facility] [place] [facility] BMI 2020-09-01 18:59:00 36.29 kg/m2 Universi ty of [facility] Oxygen saturation in 2020-09-01 18:59:00 99 /min University of Arterial blood by [facility] Pulse oximetry Branch Systolic blood 2020-09-01 19:17:00 120 mm[Hg] Univer sity of pressure [place] [facility] [place] Diastolic blood 2020-09-01 19:17:00 78 mm[Hg] Unive rsity of pressure [facility] Heart rate 2020-09-01 19:17:00 68 /min [facility]i ty of [place] [facility] [place] Body temperature 2020-09-01 18:59:[address] [facility] ersity of [facility] Respiratory rate 2020-09-01 18:59:00 20 /min [facility] ersity of [facility] Body height 2020-09-01 18:59:00 180.3 cm [facility] [place] [facility] Body weight 2020-09-01 18:59:00 118.026 kg [facility] [place] [facility] BMI 2020-09-01 18:59:00 36.29 kg/m2 [facility] [place] [facility] Oxygen saturation in 2020-09-01 18:59:00 99 /min University of Arterial blood by [facility] nicci Pulse oximetry Branch WEIGHT 2021-10-05 14:54:50 113.260456 kg HEIGHT 2021-10-05 14:54:50 185.42 cm WEIGHT 2021-10-05 14:42:46 113.562229 kg HEIGHT 2021-10-05 14:42:46 185.42 cm WEIGHT 2021-10-05 14:40:46 113.648195 kg HEIGHT 2021-10-05 14:40:46 185.42 cm WEIGHT 2021-10-05 14:40:25 113.666074 kg HEIGHT 2021-10-05 14:40:25 185.42 cm WEIGHT 2021-10-05 14:39:40 113.399439 kg HEIGHT 2021-10-05 14:39:40 185.42 cm WEIGHT 2021-10-05 14:38:01 113.475805 kg HEIGHT 2021-10-05 14:38:01 185.42 cm WEIGHT 2021-10-05 14:37:15 113.473944 kg HEIGHT 2021-10-05 14:37:15 185.42 cm Body Temperature 2020-03-10 11:19:00 98.3 [degF] [facility] [place] ([place]) Heart Rate 2020-03-10 11:19:00 62 /min [facility] [place] ([place]) Respiratory Rate 2020-03-10 11:19:00 16 /min [facility] ([place]) O2 % BldC Oximetry 2020-03-10 11:19:00 97 % [facility] ([place]) BP Systolic 2020-03-10 11:19:00 111 mm[Hg] [facility] [place] ([place]) BP Diastolic 2020-03-10 11:19:00 66 mm[Hg] [facility] [place] ([place]) Height 2020-03-09 17:15:00 185.42 cm [facility] ([place]) Weight Measured 2020-03-09 17:15:00 113.39 kg [facility] ([place]) BMI (Body Mass 2020-03-09 17:15:00 33.0 kg/m2 [facility]) [place] ([place]) Procedures Procedure Date / Time Performing Source Performed Clinician CREATININE 2021-07-25 13:18:00 Brigid L[facility] FREE T4 2021-07-25 13:18:00 Brigid [facility] THYROID STIMULATING HORMONE 2021-07-25 13:18:00 Brig[facility] FREE T3 2021-07-25 13:18:00 [facility] FREE T4 2021-05-17 12:58:00 Brig[facility] FREE T3 2021-05-17 12:58:00 Brig[facility] THYROID STIMULATING HORMONE 2021-05-17 12:58:00 [facility] MR PITUITARY W WO CONTRAST 2021-03-22 14:50:21 [facility] FREE T4 2020-12-26 20:49:00 [facility] TRIIODOTHYRONINE 2020-12-26 20:49:00 [facility] THYROID STIMULATING HORMONE 2020-12-26 20:49:00 [facility] ASSIGNMENT OF BENEFITS 2020-12-26 20:41:47 Doctor Unassigned, [facility] NM THYROID UPTAKE AND SCAN 2020-12-12 15:43:34 [facility] NM THYROID UPTAKE AND SCAN 2020-12-12 15:43:34 [facility] ASSIGNMENT OF BENEFITS 2020 15:35:54 Doctor Unassigned, [facility] NM Lymphoscintigraphy 2020-03-09 00:00:00 [facility] ([place]) Encounters Start End Encounter Admission Attending Care Care Encounter Source Date/Time Date/Time Type Type Clinicians Facility Department ID 2021-11-05 2021-11-05 Outpatient Sydnie ELDER [facility] [id number] Univers 09:15:00 09:15:00 ALESSANDRO [id number] [facility] 2021-10-01 2021-10-01 Outpatient R BRIGID [facility] [id number] Univers 13:30:00 13:30:00 [facility] 2021-10-01 2021-10-01 Outpatient R BRIGID [facility] [id number] Univers 13:30:00 13:30:00 LIDIA [id number] [facility] 2021-09-28 2021-09-28 Telephone Brigid [facility] 1.2.840.114 [id number] Univers 00:00:00 00:00:00 Lidia HEALTH 350.1.13.10 it y of [place] 4.2.7.2.686 Donald as GIORGI?BLEA [phone] [facility] LINDEN 220 [facility] 2021-09-11 2021-09-11 Telephone [facility] 1.2.840.114 [id number] Univers 00:00:00 00:00:00 Lidia Health 350.1.13.10 it y of [place] 4.2.7.2.686 Donald as Giorgi?Blea [phone] [address] Office [facility] 2021-09-04 2021-09-04 Refill [facility] 1.2.840.114 [id number] Univers 00:00:00 00:00:00 Lidia [place] 350.1.13.10 i [place] of [place] [phone] [facility] 220 [facility] 2021-08-27 2021-08-27 Outpatient R BRIGID [facility] [id number] [id number] Univers 13:00:00 13:00:00 [facility] [id number] [facility] 2021-08-27 2021-08-27 [facility] [id number] Univers 13:00:00 13:00:00 [facility] 2021-08-24 2021-08-24 Telephone [facility] 1.2.840.114 [id number] Univers 00:00:00 00:00:00 Lidia Health 350.1.13.10 it y of [place] 4.2.7.2.686 Donald as Giorgi?Blea [phone] [address] 2021-07-25 2021-07-25 Refrigeration Service Inspector Gamaliel, Mirtha Lab Main [facility] 1.2.8 40.114 [id number] Univers 08:06:48 08:21:48 Visit Lidia Ivy 350.1.13.10 ity of [place] [phone] Me dic[address] 2021-07-25 2021-07-25 Outpatient R [facility] [id number] Univers 08:15:00 08:15:00 [id number] ity [facility] 2021-07-25 2021-07-25 Outpatient R BRIGID [facility] [id number] Univers 08:15:00 08:15:00 [facility] 2021-05-28 2021-05-28 Telephone [facility] 1.2.840.114 [id number] Univers 00:00:00 00:00:00 Lidia Vo 350.1.13.10 i [place] of [place] [phone] [facility] 220 [facility] 2021-05-17 2021-05-17 Refrigeration Service Inspector Gamaliel, Adc Lab Main [facility] 1.2.8 40.114 [id number] Univers 07:44:41 07:59:41 Visit Lidia Ivy 350.1.13.10 ity of [place] 4.[place] [id number] [address] 2021-05-17 2021-05-17 Outpatient R [facility] [id number] Univers 07:45:00 07:45:00 [id number] [facility] 2021-05-17 2021-05-17 Outpatient R BRIGID [facility] [id number] Univers 07:45:00 07:45:00 [facility]IDIA [facility] 2021-05-17 2021-05-17 Telephone [facility]barachemaGALL[facility] 1.2.840.114 [id number] Univers 00:00:00 00:00:00 Lidia Vo 350.1.13.10 i [place] of [place] [phone] [facility] 220 [facility] 2021-05-14 2021-05-14 [facility] [id number] Univers 09:00:00 09:00:00 LIDIA [id number] [facility] 2021-04-23 2021-04-23 Office [facility]inda[facility] 1.2.840.114 [id number] Univers 11:42:45 12:34:23 Visit Lidia Vo 350.1.13.10 i [place] of [place] [phone] Ms dical nal 220 [facility] 2021-04-23 2021-04-23 Outpatient R [facility] [id number] [id number] Univers 12:00:00 12:00:00 LIDIA [id number] ity [facility] 2021-04-23 2021-04-23 [facility] [id number] Univers 12:00:00 12:00:00 [facility]IA [facility] 2021-03-29 2021-03-29 Telephone [facility] 1.2.840.114 [id number] Univers 00:00:00 00:00:00 Lidia Vo 350.1.13.10 i [place] of [place].2.[place] [phone] Ms dical [facility] 2021-03-22 2021-03-22 [facility] 1.2.840.114 [id number] Univers 08:17:17 23:59:00 Encounter Lidia Tavo 350.1.13.10 ity [facility] 4.2.7.2.686 [place] [phone] [facility] [address] [place] 2021-03-22 2021-03-22 Outpatient [facility] [id number] Univers 09:00:00 09:00:00 LIDIA [id number] [facility] 2021-03-22 2021-03-22 Refrigeration Service Inspector Gamaliel, Mirtha Lab Main [facility] 1.2.8 40.114 [id number] Univers 08:19:49 08:34:49 Visit Brigid Lidia Vo 350.1.13.10 ity of [place] [phone] Ms dical nal 353 [facility] 2021-03-22 2021-03-22 Outpatient R BRIGID [facility] [id number] Univers 00:00:00 00:00:00 LIDIA ity [facility] 2021-03-12 2021-03-12 Outpatient [facility] [id number] [facility] 00[facility]00 [facility] ent Clinics 2021-03-01 2021-03-01 Telephone [facility] 1.2.840.114 [id number] Univers 00:00:00 00:00:00 Lidia MULTISPEC 350.1.13.10 it[place] of [place].2.[place] [phone] [address] DIABETES CLINIC 2021-02-23 2021-02-23 Telephone Ravindersaint [facility] hospitalbrindaG[facility] 1.2.840.114 [id number] Univers 00:00:00 00:00:00 Lidia MULTISPEC 350.1.13.10 ity of [place].2.[place] [phone] [address] DIABETES CLINIC 2021-02-21 2021-02-21 Refrigeration Service Inspector Gamaliel, Mirtha Lab Main [facility] 1.2.8 40.114 [id number] Univers 07:42:23 07:57:23 Visit Lidia Ivy 350.1.13.10 ity of [place] 4.[place].7.2.[place] [phone] Ms dical nal [facility] 2021-02-21 2021-02-21 Outpatient R [facility] [id number] Univers 07:30:00 07:30:00 [id number] ity of [facility] 2021-02-21 2021-02-21 Out[facility] [id number] Univers 07:30:00 07:30:00 LIDIA ity [facility] 2021-02-19 2021-02-19 Telephone [facility] 1.2.840.114 [id number] Univers 00:00:00 00:00:00 Lidia MULTISPEC 350.1.13.10 it[place] of [place]2.[place] [id number] [address] DIABETES CLINIC 2021-02-15 2021-02-15 Telephone Barbaracorona [facility] centerbrindaG[facility] 1.2.840.114 8 [id number] Univers 00:00:00 00:00:00 Lidia MULTISPEC 350.1.13.10 ity of [place] 4.2.7.2.[place] [phone] [address] DIABETES CLINIC 2021-02-13 2021-02-13 Telephone [facility] 1.2.840.114 8 [id number] Univers 00:00:00 00:00:00 Lidia MULTISPEC 350.1.13.10 ity of [place].2.[place].2.[place] [phone] [address] DIABETES CLINIC 2021-02-10 2021-02-10 Patient Rai [facility] 1.2.840.114 [id number] Univers 00:00:00 00:00:00 Outreach Tavo PRIMARY 350.1.13.10 i ty of [facility] 4.2.7.2.686 [place] [phone] Ms dical [address] [place] 2021-02-05 2021-02-05 Refrigeration Service Inspector Gamaliel, Mirtha Lab Main [facility] 1.2.8 40.114 [id number] Univers 07:47:32 08:02:32 Visit Lidia Ivy 350.1.13.10 ity of [place] 4.2.7.2.[place] ess[place] [phone] Ms dical nal [facility] 2021-02-05 2021-02-05 Outpatient R [facility] [id number] Univers 07:30:00 07:30:00 [id number] ity [facility] 2021-02-05 2021-02-05 Outpatient R BRIGID [facility] [id number] Univers 07:30:00 07:30:00 LIDIA ity [facility] 2021-02-02 2021-02-02 Outpatient R [facility] [id number] Univers 08:00:00 08:00:00 [id number] [facility] 2021-01-05 2021-01-05 Office Brigid [facility] 1.2.840.114 [id number] Univers 14:22:07 15:26:48 Visit Lidia OMARPEC 350.1.13.10 ity of [place] 4.2.7.2.686 [place] [phone] [address] DIABETES CLINIC 2021-01-05 2021-01-05 [facility] [id number] Univers 14:30:00 14:30:00 [facility] [id number] [facility] 2021-01-05 2021-01-05 Outpatient [facility] [id number] Univers 14:30:00 14:30:00 [facility] 2020-12-26 2020-12-26 Refrigeration Service Inspector Mirtha Alston Lab Main [facility] 1.2.8 40.114 [id number] Univers 14:42:08 14:57:08 Visit RavinderadamDelisa parryvaishnavi Vo 350.1.13.10 ity of [place] 4.2.7.2.[place] [phone] Ms dical [address] 2020-12-26 2020-12-26 Refrigeration Service Inspector Gamaliel [facility] 1.2.840.114 [id number] 14:42:08 14:57:08 Visit Lab Main Tavo 350.1.13.10 [place] 4.2.7.2.686 Professio [phone] [address] 2020-12-26 2020-12-26 Outpatient R [facility] [id number] Univers 14:45:00 14:45:00 [id number] [facility] 2020-12-26 2020-12-26 Out[facility] [id number] Univers 14:45:00 14:45:00 [facility] 2020-12-26 2020-12-26 Orders Doctor GRANT 1.2.840.114 [id number] Univers 00:00:00 00:00:00 Only Unassigned, DESIREE 350.1.13.10 ity of [place] [facility] 4.2.7.2.686 Donald as [phone] [facility] [address] 2020-12-26 2020-12-26 Orders Doctor JUANITA 1.2.840.114 [id number] 00:00:00 00:00:00 Only Unassigned, DESIREE 350.1.13.10 [place] [facility] [id number] 009 2020-12-19 2020-12-19 Outpatient R [facility] [id number] Univers 08:00:00 08:00:00 [id number] ity [facility] 2020-12-19 2020-12-19 Outpatient R [facility] [id number] Univers 08:00:00 08:00:00 LIDIA ity [facility] 2020-12-15 2020-12-15 Telephone [facility] 1.2.840.114 8 [id number] Univers 00:00:00 00:00:00 [facility] MULTISPEC 350.1.13.10 ity of IAL[place] 4.2.7.2.686 [facility] [place] [phone] [facility] AND [address] DIABETES [facility] 2020-12-15 2020-12-15 Telephone [facility] 1.2.840.114 [id number] 00:00:00 00:00:00 [facility] MULTISPEC 350.1.13.10 IALTY 4.2.7.2.686 [place] [phone] [place] [address] DIABETES CLINIC 2020-12-13 2020-12-13 [address] [id number] [facility] St 00:00:00 00:00:00 [facility] 2020-12-12 2020-12-12 [facility] 1.2.840.114 [id number] Univers 07:52:25 23:59:00 Encounter Lidia Health 350.1.13.10 ity of [place].7.2.686 [place] [phone] [address] ([facility]) 2020-12-12 2020-12-12 [facility] 1.2.840.114 [id number] 07:52:25 23:59:00 Encounter [facility] 350.1.13.10 [place] 4.2.7.2.686 [place] [phone] [place] [address] ([facility]) 2020-12-12 2020-12-12 [facility] 1.2.840.114 [id number] Univers 07:49:56 07:51:00 Encounter [facility] 350.1.13.10 ity of [place].2.[place] [phone] [address] ([facility]) 2020-12-12 2020-12-12 [facility] 1.2.840.114 [id number] 07:49:56 07:51:00 Encounter [facility] 350.1.13.10 [place] 4.2.7.2.686 [place] [phone] [place] [address] ([facility]) 2020-12-11 2020-12-11 [facility] [id number] Univers 07:37:07 23:59:00 LIDIA ity [facility] 2020-12-11 2020-12-11 [facility] 1.2.840.114 [id number] Univers 07:37:07 23:59:00 Encounter [facility] 350.1.13.10 it[place] of [place].2.[place] [phone] [address] ([facility]) 2020-12-11 2020-12-11 [facility] 1.2.840.114 80 [id number] 07:37:07 23:59:00 Encounter [facility] 350.1.13.10 [place] 4.2.7.2.686 [place] [id number] [place] [address] ([facility]) 2020-11-27 2020-11-27 Outpatient R [facility] [id number] Univers 09:00:00 09:00:00 LIDIA ity [facility] 2020-11-01 2020-11-01 Telephone [facility] 1.2.840.114 7 [id number] 00:00:00 00:00:00 Lidia MULTISPEC 350.1.13.10 IALTY 4.2.7.2.686 [place] [id number] [place] [address] DIABETES CLINIC 2020-11-01 2020-11-01 Telephone [facility] 1.2.840.114 7 [id number] Univers 00:00:00 00:00:00 Lidia MULTISPEC 350.1.13.10 [facility] 4.2.7.2.686 [facility] [phone] [facility] AND [address] DIABETES CLINIC 2020 2020 [facility] 1.2.840.114 79 [id number] 09:37:19 23:59:00 Encounter Lidia [place] 350.1.13.10 [place] 4.2.7.2.686 [place] [id number] [facility] 2020 2020 [facility] 1.2.840.114 [id number] Univers 09:37:19 23:59:00 Encounter Lidia [place] 350.1.13.10 ity of [place] 4.2.7.2.686 [facility] [phone] [address] 2020 2020 Outpatient R [facility] [id number] [id number] Univers 10:00:00 10:00:00 [facility] 2020 2020 Outpatient R [facility] [id number] Univers 00:00:00 00:00:00 LIDIA ity [facility] 2020 2020 Orders Doctor GRANT 1.2.840.114 [id number] 00:00:00 00:00:00 Only Unassigned, DESIREE 350.1.13.10 [place] [facility] 4.2.7.2.686 [id number] 009 2020 2020 Orders Doctor GRANT 1.2.840.114 [id number] Univers 00:00:00 00:00:00 Only Unassigned, DESIREE 350.1.13.10 ity of [place] [facility] 4.2.7.2.686 Donald [id number] [address] 2020-10-04 2020-10-04 Telephone [facility] 1.2.840.114 7 [id number] 00:00:00 00:00:00 [facility] MULTISPEC 350.1.13.10 IALTY 4.2.7.2.686 [place] [phone] [place] [address] DIABETES [facility] 2020-10-04 2020-10-04 Telephone [facility] 1.2.840.114 7 [id number] Univers 00:00:00 00:00:00 Lidia MULTISPEC 350.1.13.10 ity of [facility] 4.2.7.2.686 [facility] s [place] [phone] [facility] AND [address] DIABETES CLINIC 2020-10-02 2020-10-02 Outpatient R [facility] [id number] Univers 09:00:00 09:00:00 [facility] 2020-10-02 2020-10-02 [facility] [id number] Univers 09:00:00 09:00:00 [facility] 2020-10-02 2020-10-02 Refrigeration Service Inspector Vt-Lab [facility] 1.2.840.114 [id number] 08:26:14 08:41:14 Visit MULTISPEC 350.1.13.10 IALTY 4.2.7.2.686 [place] [phone] [place] [address] DIABETES CLINIC 2020-10-02 2020-10-02 Refrigeration Service Inspector Vt-Lab [facility] 1.2.840.114 [id number] Univers 08:26:14 08:41:14 Visit BrigidDelisaLidia MULTISPEC 350.1.13.10 ity of IALTY 4.2.7.2.686 [facility] [place] [phone] [facility] AND [address] DIABETES CLINIC 2020-09-20 2020-09-20 Outpatient [facility] STLSJC [id number] [facility] St 00:00:00 00:00:00 [facility] 2020-09-19 2020-09-19 Telephone [facility] 1.2.840.114 7 [id number] 00:00:00 00:00:00 Lidia MULTISPEC 350.1.13.10 IALTY 4.2.7.2.686 [place] [id number] [place] [address] DIABETES CLINIC 2020-09-19 2020-09-19 Telephone [facility] 1.2.840.114 7 [id number] [facility] 00:00:00 00:00:00 Lidia MULTISPEC 350.1.13.10 ity of [place] 4.2.7.2.686 [place] [id number] [facility] AND [address] DIABETES CLINIC 2020-09-07 2020-09-07 Outpatient R [facility] [id number] Univers 13:00:00 13:00:00 [id number] ity [facility] 2020-09-07 2020-09-07 [facility] [id number] Univers 13:00:00 13:00:00 [facility] 2020-09-07 2020-09-07 Refrigeration Service Inspector Vt-Lab [facility] 1.2.840.114 [id number] 12:28:47 12:43:47 Visit MULTISPEC 350.1.13.10 IALTY 4.2.7.2.686 [place] [phone] [place] [address] DIABETES CLINIC 2020-09-07 2020-09-07 Refrigeration Service Inspector [facility] 1.2.840.114 [id number] Univers 12:28:47 12:43:47 Visit Lidia Ivy MULTISPEC 350.1.13.10 ity of [place]2.7.2.686 [place] [phone] [facility] AND [address] DIABETES CLINIC 2020-09-01 2020-09-04 Office [facility]inda[facility] 1.2.840.114 [id number] 13:35:25 10:18:33 Visit Lidia MULTISPEC 350.1.13.10 IALTY 4.2.7.2.686 CENTER [phone] [place] [address] DIABETES CLINIC 2020-09-01 2020-09-04 Office [facility] 1.2.840.114 [id number] Univers 13:35:25 10:18:33 Visit Lidia [facility] 350.1.13.10 [place] 4.2.7.2.686 [facility] [phone] [address] DIABETES CLINIC 2020-09-01 2020-09-01 Out[facility] [id number] Univers 13:00:00 13:00:00 LIDIA itjair [facility] 2020-07-07 2020-07-[address] [facility] [id number] 09:20:00 09:20:00 General General and Marium kes - and Bariatric St Bariatric Surgery [place] [facility] 2020-06-15 2020-06-[address] [facility] [id number] 09:05:00 09:05:00 General General and Marium kes - and Bariatric St Bariatric Surgery [place] [facility] 2020-05-31 2020-05-[address] [facility] [id number] 11:20:00 11:20:00 General General and Marium kes - and Bariatric St Bariatric Surgery [place] [facility] 2020-05-30 2020-05-[address] [facility] [id number] 14:41:00 14:41:00 General General and Marium kes - and Bariatric St Bariatric Surgery [place] [facility] 2020-05-24 2020-05-[address] [facility] [id number] 09:30:00 09:30:00 General General and Marium kes - and Bariatric St Bariatric Surgery [place] [facility] 2020-05-23 2020-05-[address] [facility] [id number] 09:02:00 09:02:00 General General and Marium kes - and Bariatric St Bariatric Surgery [place] [facility] 2020-05-08 2020-05-[address] [facility] [id number] 10:10:00 10:10:00 General General and Marium kes - and Bariatric St Bariatric Surgery [place] [facility] 2020-04-21 2020-04-[address] [facility] [id number] 09:20:00 09:20:00 General General and Marium kes - and Bariatric St Bariatric Surgery [place] [facility] 2020-04-07 2020-04-[address] [facility] [id number] 09:20:00 09:20:00 General General and Marium kes - and Bariatric St Bariatric Surgery [place] [facility] 2020-03-31 2020-03-[address] [facility] [id number] 09:20:00 09:20:00 General General and Marium kes - and Bariatric St Bariatric Surgery [place] [facility] 2020-03-28 2020-03-[address] [facility] [id number] 10:50:00 10:50:00 General General and Marium kes - and Bariatric St Bariatric Surgery [facility] 2020-03-24 2020-03-[address] [facility] [id number] 10:30:00 10:30:00 General General and Marium kes - and Bariatric St Bariatric Surgery [facility] 2020-03-21 2020-03-[address] [facility] [id number] 16:18:00 16:18:00 General General and Marium kes - and Bariatric St Bariatric Surgery [facility] 2020-03-17 2020-03-[address] [facility] [id number] 09:00:00 09:00:00 General General and Marium kes - and Bariatric St Bariatric Surgery [facility] 2020-03-16 2020-03-[address] [facility] [id number] 08:39:00 08:39:00 General General and Marium kes - and Bariatric St Bariatric Surgery [facility] 2020-03-09 2020-03-10 Discharged R Agustin, 2.16.840. Duncan J [id number] [facility] 17:25:00 13:33:00 Inpatient Ras 1.038829. [facility] 28 L ukes - 3.4991.3. [facility] St. 1.2 [place] Tray[place]) 2020-03-09 2020-03-[address] [facility] [id number] 08:00:00 08:00:00 Ras -[id number] Luke s - [place] ([place]) 2020-03-08 2020-03-08 Out[facility] [id number] 15:00:00 15:00:00 Ras -[id number] Luke s - [place] ([place]) 2020-03-08 2020-03-08 Departed Sydnie Velez, . Duncan J00 [id number] [facility] 09:37:00 09:38:00 Clinical Ras 1.574515. Regional 92 Marium kes - 3.4991.3. [facility] 1.2 [facility]) 2020-02-24 2020-02-24 Registered . REFERENCE L00 [id number] [facility] 11:41:00 11:41:00 Clinical 1.032667. LAB 19 Concepcion es - 3.4991.3. St. .2 [facility]) 2020-02-23 2020-02-[address] [facility] [id number] 11:19:00 11:19:00 General General and Marium kes - and Bariatric St Bariatric Surgery [place] [facility] ent Clinics 2020-02-14 2020-02-[address] [facility] [id number] 09:00:00 09:00:00 General General and Marium kes - and Bariatric St [facility] [place] [facility] 2020-02-02 2020-02-[address] [facility] [id number] 16:00:00 16:00:00 General General and Marium kes - and Bariatric St Bariatric Surgery [facility] ent [facility] Results Test Description Test Time Test Comments Results Result Comments Source THYROID STIMULATING HORMONE 2021-07-25 14:57:55 Test Item Value Reference Range Interpretation Comme nts TSH (test code = 6923517212) <0.02 See_Comment L [Automated message] The system which generated this result transmitted ref erence range: 0.45 - 4.70 mIU /L. The reference range was not u sed to interpret this result as normal/abnormal. Lab Interpretation (test code Abnormal = 63047-2) [facility]UL[facility] [id number] 14:57:55 Test Item Value Reference Range Interpretation Comments TSH (test code = <0.02 See_Comment L [Automated message] [id number]) The system TouchLocal generated this result transmitted ref erence range: 0.45 - 4 .70 mIU/L. The refe rence range was not u sed to interpret this result as normal/abnor mal. Lab Interpretation (test Abnormal code = 97556-7) [place] [id number] 14:44:35 Test Item Value Reference Range Interpretation Comments FREE T4 (test code = See_Comment [Autom ated message] [id number]) The system [employer] generated this result transmitted ref erence range: 0.78 - 2 .20 ng/dL:. The ref erence range was not u sed to interpret this result as normal/abnor mal. Lab Interpretation (test Normal code = 88648-5) [place] [id number] 14:44:35 Test Item Value Reference Range Interpretation Comments FREE T4 (test code = See_Comment [Autom ated message] [id number]) The system [employer] generated this result transmitted ref erence range: 0.78 - 2 .20 ng/dL:. The ref erence range was not u sed to interpret this result as normal/abnor mal. Lab Interpretation (test Normal code = 27074-8) [place] [id number] 14:43:54 Test Item Value Reference Range Interpretation Comments FREE T3 (test code = 7076592935) 5.42 pg/mL 2.77-5.27 H Lab Interpretation (test code = Abnormal 16480-1) [place] [id number] 14:43:54 Test Item Value Reference Range Interpretation Comments FREE T3 (test code = 6972513634) 5.42 pg/mL 2.77-5.27 H Lab Interpretation (test code = Abnormal 77092-6) [facility]2021-08-25 14:26:52 Test Item Value Reference Range Interpretation Comments CREATININE (test code 0.93 mg/dL 0.50-1.04 = 7445284307) eGFR (test code = mL/min/1.73m2 3147411322) JAYANT (test code = JAYANT) Association of Glomerular Filtration Rate (GFR) and Staging of Kidney Disease* + + +- +| GFR (mL/min/1.73 m2) ?| With Kidney Damage ?| ?Without Kidney Damage+ ------+ ----+ ------+| ?>90 ?| ?Stage one ?| ? Normal ?+ -+ + -+| ?60-89 ?| ?Stage two ?| ? Decreased GFR ? + + +- +| ?30-59 ?| ?Stage three ?| ? Stage three ? + + +- +| ?15-29 ?| ?Stage four ? | ? Stage four ?+ -+ + -+| ?<15 (or dialysis) ? ?| ?Stage five ? | ? Stage five ?+ -+ + -+ *Each stage assumes the associated GFR level has been in effect for at least three months. ?Stages 1 to 5, with or without kidney disease, indicate chronic kidney disease. Notes: Determination of stages one and two (with eGFR >59mL/min/1.73 m2) requires estimation of kidney damage for at least three months as defined by structural or functional abnormalities of the kidney, manifested by either:Pathological abnormalities or Markers of kidney damage (including abnormalities in the composition of the blood or urine or abnormalities in imaging tests). [facility] 14:26:52 Test Item Value Reference Range Interpretation Comments CREATININE (test code = 0.93 mg/dL 0.50-1.04 [id number]) eGFR (test code = 4983931274) mL/min/1.73m2 JAYANT (test code = JAYANT) [facility] [id number] 14:48:17 Test Item Value Reference Range Interpretation Comments TSH (test code = <0.02 See_Comment L [Automated message] [id number]) The system [employer] generated this result transmitted ref erence range: 0.45 - 4 .70 mIU/L. The refe rence range was not u sed to interpret this result as normal/abnor mal. Lab Interpretation (test Abnormal code = 26897-8) [facility] [id number] 14:48:17 Test Item Value Reference Range Interpretation Comments TSH (test code = <0.02 See_Comment L [Automated message] [id number]) The system [employer] generated this result transmitted ref erence range: 0.45 - 4 .70 mIU/L. The refe rence range was not u sed to interpret this result as normal/abnor mal. Lab Interpretation (test Abnormal code = 92205-9) [place] [address]07882021-06-17 14:34:58 Test Item Value Reference Range Interpretation Comments FREE T4 (test code = See_Comment [Autom ated message] [id number]) The system [employer] generated this result transmitted ref erence range: 0.78 - 2 .20 ng/dL:. The ref erence range was not u sed to interpret this result as normal/abnor mal. Lab Interpretation (test Normal code = 19694-5) [place] [address]07882021-06-17 14:34:58 Test Item Value Reference Range Interpretation Comments FREE T4 (test code = See_Comment [Autom ated message] 5318043235) The system [employer] generated this result transmitted ref erence range: 0.78 - 2 .20 ng/dL:. The ref erence range was not u sed to interpret this result as normal/abnor mal. Lab Interpretation (test Normal code = 32628-7) [place] [address]07882021-06-17 14:34:58 Test Item Value Reference Range Interpretation Comments FREE T4 (test code = See_Comment [Autom ated message] 5775824204) The system [employer] generated this result transmitted ref erence range: 0.78 - 2 .20 ng/dL:. The ref erence range was not u sed to interpret this result as normal/abnor mal. Lab Interpretation (test Normal code = 08406-9) [place] [id number] 14:34:38 Test Item Value Reference Range Interpretation Comments FREE T3 (test code = 4875385962) 5.45 pg/mL 2.77-5.27 H Lab Interpretation (test code = Abnormal 10312-0) [place] [id number] 14:34:38 Test Item Value Reference Range Interpretation Comments FREE T3 (test code = 3961640505) 5.45 pg/mL 2.77-5.27 H Lab Interpretation (test code = Abnormal 25259-9) [facility] [id number] 14:34:38 Test Item Value Reference Range Interpretation Comments FREE T3 (test code = 4265320269) 5.45 pg/mL 2.77-5.27 H Lab Interpretation (test code = Abnormal 92123-1) [facility] HospitalMR PITUITARY W WO [id number] 15:27:53 1. ?Mildly prominent pituitary gland with no definite focal differentialhypoenhancement to suggest adenoma with mildly thickened pituitary stalk,which could reflect pituitary hyperplasia and/or hypophysitis. Clinicallycorrelate and attention on follow-up. 2. ?No acute intracranial abnormality. EXAMINATION: MR PITUITARY W WO CONTRAST HISTORY: suspected pituitary tumor COMPARISON: None. Technique:Multiplanar multisequence MRI of the brain was performed withattention to the pituitary sella with and without contrast. 12 mL ofProhance intravenous. FINDINGS: The pituitary gland is mildly prominentin transverse dimension with nodefinite focal differential hypoenhancement. The pituitary stalk is midlineand mildly thickened.There is no suprasellar mass. The optic chiasm is normal in morphology andposition. ?The cavernous sinuses are unremarkable. Nonspecific focus of T2/FLAIR hyperintensity in the right frontal whitematter, not excessive for patient's age. There is no abnormal enhancement. No intracranial hemorrhage. The ventricles, sulci and cisterns are normal in size and symmetric. No acute infarct. The calvarium is normal. ?The orbits are unremarkable. The paranasalsinuses are essentially clear. Iamb, Radiant Results Inft User - 03/22/2021 10:29 AM CDTEXAMINATION: MR PITUITARY W WO CONTRASTHISTORY: suspected pituitary tumor COMPARISON: None.Technique: Multiplanar multisequence MRI ofthe brain was performed withattention to the pituitary sella with and without contrast. 12 mL ofProhance intravenous. FINDINGS:The pituitary gland is mildly prominent in transverse dimension with nodefinite focal differential hypoenhancement. The pituitary stalk is midlineand mildly thickened.There isno suprasellar mass. The optic chiasm is normal in morphology andposition. The cavernous sinuses are unremarkable. Nonspecific focus of T2/FLAIR hyperintensity in the right frontal whitematter, not excessive for patient's age. There is no abnormal enhancement. No intracranial hemorrhage. The ventricles, sulci and cisterns are normal in size and symmetric. No acute infarct. The calvarium is normal. The orbits are unremarkable. The paranasalsinuses are essentially clear. IMPRESSION1. Mildly prominent pituitary gland with no definite focal differentialhypoenhancement to suggest adenoma with mildly thickened pituitary stalk,which could reflect pituitary hyperplasia and/or hypophysitis. Clinicallycorrelate and attention on follow-up.2. No acute intracranial abnormality.[facility] HospitalTRIIODOTHYRONINE2021-01-27 08:35:00 Test Item Value Reference Range Interpretation Comments T3 (test code = 7921902549) 153.0 ng/dL 97-170 Lab Interpretation (test code = Normal 11438-1) [facility] HospitalTH[facility] [id number] 22:33:00 Test Item Value Reference Range Interpretation Comments TSH (test code = See_Comment L [Automated message] [id number]) The system [employer] generated this result transmitted ref erence range: 0.45 - 4 .70 mIU/L. The refe rence range was not u sed to interpret this result as normal/abnor mal. Lab Interpretation (test Abnormal code = 07025-3) [facility] HospitalFREE [id number] 22:19:00 Test Item Value Reference Range Interpretation Comments FREE T4 (test code = See_Comment L [Autom ated message] [id number]) The system [employer] generated this result transmitted ref erence range: 0.78 - 2 .20 ng/dL:. The ref erence range was not u sed to interpret this result as normal/abnor mal. Lab Interpretation (test Abnormal code = 39848-4) [facility] SURGICAL PATHOLOGY, LEVEL [id number] 11:19:[address] [address] Laboratory Printed: 04/06/20 1120 BKG DAEMPathology Page: 1 Patient: NICHELLE DIAS Birthdate: 1965 Age/Sex: 54/F Spec#: [id number]: Ras Velez MD Specimen Date: 03/09/20 Received Date: 03/09/20 Specimen: SENTINEL LYMPH NODE ADDENDUM Addendum # 1 Entered: 04/06/20 At the request of Dr. Velez, paraffin block B5 is sent to [employer] for Oncotype DXand the results are as follows. ONCOTYPE DX BREAST RECURRENCE SCORE REPORTNode Negative Recurrence Score Result (RS): 15Distant Recurrence Risk at 9 Years (with AI or LAND Alone): 4%Absolute Chemotherapy Benefit: <1% The report from [employer] has been scanned into thepatient's EMR and faxed to .Pathologist:Ras Miranda MD Entered by: 04/06/20830 LAB.DLN Addendum Signed (Electronically Signed)_ Ras Miranda MD 04/06/20 PATHOLOGIC DIAGNOSIS A. [place] lymph node, right axillary lymph nodes, excision: - Two lymph nodes uninvolved by metastatic carcinoma (0/2 total lymph nodes). Patient: NICHELLE DIAS Re03/09/20Loc: SURG A MR#: [id number] CONTINUED ON NEXT PAGE Dis: 03/10/20ta: DIS Kayce [address] [address] Laboratory Printed:04/06/20 1120 [facility] Page: 2 Patient: NICHELLE DIAS [id number] (Continued) PATHOLOGIC DIAGNOSIS (Continued) B. Right breast, mastectomy: - Invasive poorly differentiated lobular carcinoma, grade 3 of 3, 3.5 cm (35mm). - Multifocal lobular carcinoma in situ (LCIS). - Nipple, skin, and posterior margin negative for malignancy. C. Left breast, mastectomy: - Multifocal lobular carcinoma in situ (LCIS). - Negative for invasive carcinoma. - Nipple, skin, and posterior margin negative for LCIS. ACOS-Mandated Synoptic Data ElementsVersion: Breast Invasive Resection 4.3.0.1Protocol posting date: August 2019CAP Laboratory Accreditation Program Protocol Required Use Date: March 2020Includes pTNM requirements from the 8th Edition, AJCC Staging Manual INVASIVE CARCINOMA OF THE BREAST: Resection.Procedure: Total mastectomy.Specimen Laterality: Right.Tumor Size (Size of Largest Invasive Carcinoma): 3.5 x 1.8 x 1.5 cm (35 x 18 15 mm).Histologic Type: Invasive lobular carcinoma.Histologic Grade (Manohar Histologic Score): Score 8 of 9. Glandular (Acinar)/Tubular Differentiation: 3 Nuclear Pleomorphism: 3 Mitotic Rate: 2 Overall Grade: Grade 3 of 3 (see comment).Tumor Focality: Single focus of invasive carcinoma.Ductal Carcinoma In Situ (DCIS): Not identified.Lobular Carcinoma In Situ (LCIS): Present.Tumor Extension: Skin: Skin is present and uninvolved. Nipple: Negative for DCIS. Skeletal Muscle: N/A.Margins: Invasive Carcinoma: All margins uninvolved by invasive carcinoma. Patient: NICHELLE DIAS Re03/09/20Loc: SURG A MR#: [id number] CONTINUED ON NEXT PAGE Dis: 03/10/20ta: DIS Kayce [address] [address] Laboratory Printed: 04/06/[address] [place] [address] Page: 3 ----- ------- Patient: NICHELLE DIAS [id number] (Continued) PATHOLOGIC DIAGNOSIS (Continued) Distance from closest margin (millimeters): Greater than 8 mm (0.8 cm) from superiorand 10 mm (1.0 cm) from posterior. All other margins greater than 20 mm(2.0 cm) from tumor.Regional Lymph Nodes:UNINVOLVED BY TUMOR CELLS: Number of Lymph Nodes Examined: 2 Number of [place] Nodes Examined: 2Treatment Effect: In the Breast: No known presurgical therapy. In the Lymph Nodes: No known presurgical therapy.Lymphovascular Invasion: Not identified.Dermal Lymphovascular Invasion: Not identified.Pathologic Stage Classification (pTNM, AJCC 8TH Edition): pT2, pN0, pMX.Ancillary Studies: Breast biopsy marker testing was performed on the previous biopsy (S20-783) as follows: Estrogen receptor -- Positive, 93%. Progesterone receptor -- Positive, 17.7%. Ki-67 -- Low, 9.8%. HER2/diego -- Negative.Microcalcifications: Not identified. Comment: This case is correlated with the previous biopsy (S20-783) which demonstratedinvasive carcinoma that was thought to be either ductal or lobular. Now that the tumor isentirely visible for examination, it all appears to be invasive lobular carcinoma. This isconfirmed with the general absence of E- cadherin staining on two sales representative graphic art sections.The grade of the tumor is increased compared to what was seen inthe sales representative graphic art samplingpresent in the core biopsy. The level of nuclear pleomorphism and the mitotic rate are bothmore significant in the overall tumor, raising the grade to a grade 3 of 3. As mentioned, there is multifocal LCIS throughout the right breast and also the left breast. These foci range generally from less than 1 mm (0.1 cm) to approximately 4-5 mm (0.4-0.5cm) in both breasts. This case was reviewed in intradepartmental consultation. Pathologist:Ras Miranda MD Entered by:03/15/20 - 1054 LAB.YGP Patient: NICHELLE DIAS Re03/09/20Loc: SURG AAcct#: [id number] MR#: [id number] CONTINUED ON NEXT PAGE Dis: 03/10/20ta: DIS Kayce -- [address] [address] Laboratory Printed: 04/06/[address] [place] [address] [facility] Page: 4 Patient: NICHELLE DIAS Mohamud [id number] (Continued) PROCEDURES: 92703/2, 83818, 01181, 74692, 16168/2 GROSS DESCRIPTION A. SENTINEL LYMPH NODE RIGHT AXILLARY Received fresh for frozen section labeled "right axillary sentinel lymph nodes" are twofragments of irregular shaped morris-yellow adipose tissue (2.7 x 1.7 x 0.8 cm and 2.0 x 1.5 x0.8 cm). Two sentinel lymph nodes (2.1 x 1.5 x 0.6 cm and 1.0 x 0.8 x 0.6 cm) areidentified after blunt dissection. Touch prep and frozen section are performed on bothsentinel lymph nodes. FROZEN SECTION DIAGNOSIS:AFS1 -- Larger lymph node -- No tumor cells seen.AFS2 -- Smaller lymph node -- No tumorcells seen.The frozen section diagnosis is reported by Dr. Pak. This case was reviewed in intradepartmental consultation. The remaining tissue is submitted in block A. B. BREAST MASTECTOMY RIGHT The specimen is received in 10% formalin, and is labeled with the patient's name and "rightbreast, suture at axillary tail". The specimen consists of a 1540 gmsimple mastectomymeasuring 24.0 cm from medial to lateral, 21.0 cm from superior to inferior, and 8.0 cm fromanterior to posterior. On the anterior aspect the skin measures 23.0 x 12.5 cm.Eccentrically located nipple measures 1.2 x 1.0 x 0.4 cm. Ink code:superior - orangeinferior - greenposterior - blackmedial - bluelateral - yellow The specimen is serially sectioned from lateral to medial into 12 slices. The cut surfaceshows predominantly yellow lobulated adipose tissue with focal areas of white-morris rubbery Patient: NICHELLE DIAS Re03/09/20Loc: SURG A MR#: [id number] CONTINUED ON NEXT PAGE Dis: 03/10/20ta: DIS Kayce -------- ---- [address] [address] Tel: Laboratory Printed: 04/06/[address] [place] [address] DAEMPathology Page: 5 Patient: NICHELLE DIAS [id number] (Continued) GROSS DESCRIPTION (Continued) appearance consistent with the fibrocystic changes and a slightly firm white area consistentwith the mass in slices 7 and 8 in the upper inner quadrant of the right breast. This massmeasures approximately 3.5 x 1.8 x 1.5 cm in greatest dimensions. This mass is located 0.8cm from the closest superior inked margin, 1.0 cm from the closest posterior inked margin,and more than 4.0 cm from the rest of the margins. No additional mass is grosslyidentified. Cord Splicer sections are submitted in 18 cassettes. Section code:B1 - nippleB2 - tissue under the nippleB3 - skinB4-10 - sales representative graphic art sections of the tumor mass and closest inked margin B4-5 - slice 7 B6-9 - slice 8 B10 - slice 8, closest posterior [id number] - sales representative graphic art section of slice 9, medial from the massB12 -slice 6, lateral from the massB13- 16 - sales representative graphic art sections of the rest of the breast B13 - upper outer quadrant, slice 3-5 B14 - lower outer quadrant, slice 4-5 B15 - slice 10, upper inner quadrant B16 - slice 9-10 - lower inner ztyehnxkT68 - inferior and posterior margin, slice 7B18 - medial and lateral margins This specimen is received along with a diagram which reveals that this is a rightbreast Date/Time of collection: 03/09/2020 at 1507 hoursDate/Time specimen placed in formalin: 03/09/2020 at 1507 hoursDate/Time out of formalin: 03/11/2020 at 1830 hours Note: This specimen was examined with Dr. Randolph. Cord Splicer sections of the specimen are submitted in 8 additional cassettes. Section code:B19-20 - mid portion of slice 4B21 - mid portion of slice 5 Patient: NICHELLE DIAS Re03/09/20Loc: SURG A MR#: [id number] CONTINUED ON NEXT PAGE Dis: 03/10/20ta: DIS Kayce [place] [address] [facility] Printed: 04/06/[address] [place] [address] DAEMPathology Page: 6 Patient: NICHELLE DIAS [id number] (Continued ) GROSS DESCRIPTION (Continued) B22 - upper portion of slice 6B23 - upper portion of slice 7B24 - lower portion of slice 7B25 - upper portion of slice 8B26 - mid portion of slice 9 C. BREAST MASTECTOMY LEFT The specimen is received in 10% formalin, and is labeled with the patient's name and "leftbreast, suture at axillary content". The specimen consists of a 1468 gm simple mastectomymeasuring 22.5 cm from medial to lateral, 17.0 cm from superior to inferior, and 8.0 cm fromanterior to posterior. Ink code:superior - orangeinferior - greenposterior - blackmedial - bluelateral - yellow On the anterior aspect the skin measures 28.0 x 10.0 cm. Eccentrically located nipplemeasures 1.0 x 1.0 x 0.3 cm in greatest dimensions. The specimen is serially sectioned from medial to lateral into 11 slices. The cut surfaceshows predominantly yellow lobulated adipose tissue with streaks of white breast. The focalareas have a white-morris rubbery appearance consistent with the fibrocystic changes. Nodiscrete mass is grossly identified. Cord Splicer sections are submitted in 11 cassettes. Section code:C1 - nippleC2 - tissue under the nippleC3 - sales representative graphic art section of the skinC4-11 - sales representative graphic art sections of the rest of the breast C4-5 - upper outer quadrant C6-7 - lower outer quadrant C8-9 - upper inner quadrant C10-11 - lower inner quadrant Patient: NICHELLE DIAS Re03/09/20Loc: SURG A MR#: [id number] CONTINUED ON NEXT PAGE Dis: 03/10/20ta: DIS Kayce [address] [address] Laboratory Printed: 04/06/20 1120 BK DAEMPathology Page: 7 Patient: NICHELLE DIAS [id number] (Continued) GROSSDESCRIPTION (Continued) This specimen is received along with a diagram which reveals that this is a left breast Date/Time of collection: 03/09/2020 at 1417 hoursDate/Time specimenplaced in formalin: 03/09/2020 at 1417 hoursDate/Time out of formalin: 03/13/2020 at 1830 hours Cord Splicer sections of the rest of the specimen are submitted in 6 additional cassettes. Section code:C12 - upper portion of slice 2C56-49 - upper portion of slice 5C15- upper portion of slice 6C16 - upper to mid portion of slice 7C17 - upper portion of slice 8 Dictated by: Kenyatta Pak MD Entered by: 03/14/20 - 1347 LAB.YGP MICROSCOPIC DESCRIPTION A. Two lymph nodes are examined at multiple levels and are negative for metastaticcarcinoma. The following immunohistochemical stains have been performed (all with adequate workingcontrols) with the following results: Larger lymph node: Pankeratin AE1/3 -- Negative.Smaller lymph node: Pankeratin AE1/3 -- Negative. B. Sections of the mass that was identified showed it to be an invasive carcinoma in abackground of dense fibrosis. The tumor cells are arranged mostly in small groups, andsometimes in a single file pattern. The tumor h as the following characteristics: Tubule formation: Minimal less than 10%, score = 3.Nuclear pleomorphism: Marked variation in size, nucleoli, chromatin clumping, etc., score = Patient: NICHELLE DIAS Re03/09/20Loc: SURG A MR#: [id number] CONTINUED ON NEXT PAGE Dis: 03/10/20ta: DIS Kayce [address] [address]Apc: Laboratory Printed: 04/06/[address] [place] [address] [facility] Page: 8 Patient: NICHELLE DIAS [id number] (Continued) MICROSCOPIC DESCRIPTION (Continued) 3.Mitotic count: 10 to 20 mitoses per 10 HPF, score = 2. In the general vicinity of the invasive component as well as in sections away from this israther extensive, multifocal lobular carcinoma in situ (LCIS). This is characterized bymultiple lobules that are expanded and often completely filled with a relatively uniformpopulation of round tumor cells. The nipple and skin are negative for tumor.The following immunohistochemical stain has been performed (with adequate working control)with the following result: E- cadherin -- Predominantly negative in invasive carcinoma cells. In the background there are also fibrocystic changes; there is usual type ductal epithelialhyperplasia; and apocrine metaplasia is present. The posterior margin is negative for LCISand invasive carcinoma. C. Multiple sections of breast are examined and show multiple small foci of LCIS withsimilar characteristics as see n in specimen B. The margins of the skin and nipple are allnegative for tumor. CPT Modifier: 59 Signed (Electronically Signed) Ras Miranda MD 03/15/20 ------ ------ Patient: NICHELLE DIAS Re03/09/20Loc: SURG A MR#: [id number] END OF REPORT Dis: 03/10/20ta: DIS TYfQevccvniys1433-27-07 06:40:00 Test Item Value Reference Range Interpretation Comments Hematology (test code = WBCT) 8.8 thou/uL 4.8-10.8 N Hematology (test code = RBCT) 3.69 mill/uL 4.20-5.40 L Hematology (test code = HGBT) 10.4 g/dL 12.0-16.0 L Hematology (test code = HCTT) 31.4 % 36.0-47.0 L Hematology (test code = MCV) 85.2 fL 78.0-98.0 N Hematology (test code = MCH) 28.1 pg 27.0-31.0 N Hematology (test code = MCHC) 33.1 g/dL 32.0-36.0 N Hematology (test code = RDW) 11.8 % 11.5-14.5 N Hematology (test code = PLTT) 235 thou/uL 130-400 N Hematology (test code = MPV) 8.2 fL 7.4-10.4 N Hematology (test code = %NEUT) 59.6 % 42.0-75.0 N Hematology (test code = %LYMPH) 29.9 % 21.0-51.0 N Hematology (test code = %MONO) 8.0 % 0.0-10.0 N Hematology (test code = %EOS) 2.1 % 0.0-10.0 N Hematology (test code = %BASO) 0.4 % 0.0-1.0 N Hematology (test code = NEUT#) 5.2 thou/uL 1.40-6.50 N Hematology (test code = LYMPH#) 2.6 thou/uL 1.20-3.40 N Hematology (test code = MONO#) 0.7 thou/uL 0.11-0.59 H Hematology (test code = EOS#) 0.2 thou/uL 0.0-0.7 N Hematology (test code = BASO#) 0.0 thou/uL 0.0-0.2 N Laboratory [id number] 06:19:00 Test Item Value Reference Range Interpretation Comments 6690-2 (test code = 6690-2) 8.8 thou/uL 4.8-10.8 [facility] ([place])Laboratory Ecenxbk0747-27-40 06:19:00 Test Item Value Reference Range Interpretation Comments 788-0 (test code = 788-0) 11.8 % 11.5-14.5 [facility])Laboratory Twxxmgr3431-19-63 06:19:00 Test Item Value Reference Range Interpretation Comments 789-8 (test code = 789-8) 3.69 mill/uL 4.20-5.40 L [facility])Laboratory Irboxtj4932-19-84 06:19:00 Test Item Value Reference Range Interpretation Comments 777-3 (test code = 777-3) 235 thou/uL 130-400 [facility])Laboratory Aquuzwt8864-86-80 06:19:00 Test Item Value Reference Range Interpretation Comments 770-8 (test code = 770-8) 59.6 % 42.0-75.0 [facility])Laboratory Lyvylfx2571-00-77 06:19:00 Test Item Value Reference Range Interpretation Comments 751-8 (test code = 751-8) 5.2 thou/uL 1.40-6.50 [facility])Laboratory Mlbbxjc7659-68-29 06:19:00 Test Item Value Reference Range Interpretation Comments 5905-5 (test code = 5905-5) 8.0 % 0.0-10.0 [facility])Laboratory Xfamuma6354-01-17 06:19:00 Test Item Value Reference Range Interpretation Comments 742-7 (test code = 742-7) 0.7 thou/uL 0.11-0.59 H [facility])Laboratory Phvwazc4967-14-96 06:19:00 Test Item Value Reference Range Interpretation Comments 23199-1 (test code = 27878-8) 8.2 fL 7.4-10.4 [facility])Laboratory Zbwvjui1438-90-73 06:19:00 Test Item Value Reference Range Interpretation Comments 787-2 (test code = 787-2) 85.2 fL 78.0-98.0 [facility])Laboratory Kzuqasj4021-47-20 06:19:00 Test Item Value Reference Range Interpretation Comments 786-4 (test code = 786-4) 33.1 g/dL 32.0-36.0 [facility] ([place])Laboratory Haeftar7161-63-83 06:19:00 Test Item Value Reference Range Interpretation Comments 785-6 (test code = 785-6) 28.1 pg 27.0-31.0 [facility] ([place]Laboratory Ejfyxvm0916-42-57 06:19:00 Test Item Value Reference Range Interpretation Comments 736-9 (test code = 736-9) 29.9 % 21.0-51.0 [facility]Laboratory Lvaufhr2036-18-15 06:19:00 Test Item Value Reference Range Interpretation Comments 731-0 (test code = 731-0) 2.6 thou/uL 1.20-3.40 [facility])Laboratory Fzcgiqx8609-52-18 06:19:00 Test Item Value Reference Range Interpretation Comments 718-7 (test code = 718-7) 10.4 g/dL 12.0-16.0 L [facility])Laboratory Aqmcnaz3216-69-84 06:19:00 Test Item Value Reference Range Interpretation Comments 713-8 (test code = 713-8) 2.1 % 0.0-10.0 [facility])Laboratory Diwssfu2444-81-55 06:19:00 Test Item Value Reference Range Interpretation Comments 711-2 (test code = 711-2) 0.2 thou/uL 0.0-0.7 [facility] ([place]Laboratory Mkyfmjl6044-91-05 06:19:00 Test Item Value Reference Range Interpretation Comments 706-2 (test code = 706-2) 0.4 % 0.0-1.0 [facility]Laboratory Ppsjdfl4779-53-67 06:19:00 Test Item Value Reference Range Interpretation Comments 704-7 (test code = 704-7) 0.0 thou/uL 0.0-0.2 [facility] ([place])Wsruibhtq2558-79-16 15:25:00 Test Item Value Reference Range Interpretation Comments Chemistry (test code 144 mmol/L 136-145 N = NA-T) Chemistry (test code 4.1 mmol/L 3.5-5.1 N = K-T) Chemistry (test code 111 mmol/L 98-107 H = CL) Chemistry (test code 27 mmol/L 22-29 N = CO2) Chemistry (test code 10 mmol/L 10-20 N = ANGP) Chemistry (test code 22 mg/dL 9.8-20.1 H = BUN) Chemistry (test code 1.01 mg/dL 0.6-1.1 N = CREATT) Chemistry (test code 57 Referen ce Range for = EGFRMDRD) Estimated GFR: Great er than 90 mL/min/1.73 m2NOTE:The MDRD equation has no t been validated for u se with theelderly (ove r 70 years of age), women, patientswith se rious comorbid condit ion or persons with ex tremes ofbody size, mu scle mass, or nutrit ional status. Chemistry (test code 82 mg/dL 70-105 N = GLU-T) Chemistry (test code 10.3 mg/dL 7.8-10.44 N = CA) Comment guillaume 4/6Hhfszcigai1626-43-45 15:07:00 Test Item Value Reference Range Interpretation Comments Hematology (test code = WBCT) 7.7 thou/uL 4.8-10.8 N Hematology (test code = RBCT) 4.26 mill/uL 4.20-5.40 N Hematology (test code = HGBT) 12.1 g/dL 12.0-16.0 N Hematology (test code = HCTT) 35.8 % 36.0-47.0 L Hematology (test code = MCV) 83.9 fL 78.0-98.0 N Hematology (test code = MCH) 28.3 pg 27.0-31.0 N Hematology (test code = MCHC) 33.7 g/dL 32.0-36.0 N Hematology (test code = RDW) 12.0 % 11.5-14.5 N Hematology (test code = PLTT) 260 thou/uL 130-400 N Hematology (test code = MPV) 8.3 fL 7.4-10.4 N Hematology (test code = %NEUT) 55.6 % 42.0-75.0 N Hematology (test code = %LYMPH) 32.1 % 21.0-51.0 N Hematology (test code = %MONO) 8.1 % 0.0-10.0 N Hematology (test code = %EOS) 3.3 % 0.0-10.0 N Hematology (test code = %BASO) 0.9 % 0.0-1.0 N Hematology (test code = NEUT#) 4.3 thou/uL 1.40-6.50 N Hematology (test code = LYMPH#) 2.5 thou/uL 1.20-3.40 N Hematology (test code = MONO#) 0.6 thou/uL 0.11-0.59 H Hematology (test code = EOS#) 0.3 thou/uL 0.0-0.7 N Hematology (test code = BASO#) 0.1 thou/uL 0.0-0.2 N Comment guillaume 03/09Laboratory Xcgudpk8948-92-14 14:51:00 Test Item Value Reference Range Interpretation Comments 2951-2 (test code = 2951-2) 144 mmol/L 136-145 [facility])Laboratory Flrqoqq1271-36-19 14:51:00 Test Item Value Reference Range Interpretation Comments 2823-3 (test code = 2823-3) 4.1 mmol/L 3.5-5.1 [facility])Laboratory Mpclros8043-97-51 14:51:00 Test Item Value Reference Range Interpretation Comments 2345-7 (test code = 2345-7) 82 mg/dL 70-105 [facility]Laboratory Rvsfgxt5547-70-39 14:51:00 Test Item Value Reference Range Interpretation Comments 63478-3 (test code = 65633-3) 57 [facility] ([place]Laboratory Vrpakej5746-22-82 14:51:00 Test Item Value Reference Range Interpretation Comments 2160-0 (test code = 2160-0) 1.01 mg/dL 0.6-1.1 [facility]Laboratory Veamnhy1585-56-23 14:51:00 Test Item Value Reference Range Interpretation Comments 5-0 (test code = 2075-0) 111 mmol/L 98-107 H [facility])Laboratory Obxqqvt9460-89-44 14:51:00 Test Item Value Reference Range Interpretation Comments 8-9 (test code = 2028-9) 27 mmol/L 22-29 [facility])Laboratory Zmbrwfr3140-04-81 14:51:00 Test Item Value Reference Range Interpretation Comments 20586-0 (test code = 47082-3) 10.3 mg/dL 7.8-10.44 [facility])Laboratory Nllizmu4954-35-43 14:51:00 Test Item Value Reference Range Interpretation Comments 3094-0 (test code = 3094-0) 22 mg/dL 9.8-20.1 H [facility])Laboratory Fhesfig5743-26-82 14:51:00 Test Item Value Reference Range Interpretation Comments 96999-7 (test code = 01409-0) 10 mmol/L 10-20 [facility] [employer] [place] SURGICAL PATHOLOGY, LEVEL OZ5150-52-52 08:30:00 [facility] [address] [place] [address] Laboratory Printed: 01/13/20 0830 [facility] DAEMPathology Page: 1 Patient: NICHELLE DIAS Birthdate: 1965 Age/Sex: 54/F Spec#: [id number]: Jhonny Graves MD Specimen Date: 01/07/20 Received Date: 01/07/20 Specimen: BREAST BIOPSY CLINICAL DIAGNOSIS right breast mass ADDENDUM Addendum # 1 Entered: 01/12/20 The paraffin block was [facility]. Special studies wereperformed as follows and the image analysis interpretation was performed by Ras Miranda M.D. Estrogen Receptor -- POSITIVE, 93.0%Average Intensity -- 3+ Progesterone Receptor -- POSITIVE, 17.7%Average Intensity -- 3+ Ki-67 -- LOW, 9.8% HER-2/diego -- NEGATIVE, 1+ The complete report has been scanned into the patient's EMR. Additional CPT codes: 11175t5 (professional component)Pathologist:Ras Miranda MD Entered by: 01/12/201517 LAB.DLN Patient: NICHELLE DIAS Re01/07/20Loc: [facility] MR#: [id number] CONTINUED ON NEXT PAGE Dis: Sta: REG REF [address] [address] Laboratory Printed: 01/13/20 0830 [facility] DAEMPathology Page: 2 Patient: NICHELLE DIAS [id number] (Continued) ADDENDUM (Continued) Addendum Signed (Electronically Signed)_ Ras Miranda MD 01/13/20 PATHOLOGIC DIAGNOSIS Right breast, upper inner quadrant, ultrasound-guided core biopsy: - Invasive mammary carcinoma, grade 2 of 3 (see microscopic description and comment). - Ductal carcinoma in situ (DCIS), solid pattern, intermediate grade. ACOS-Mandated Synoptic Data ElementsVersion: Breast Invasive Biopsy 1.0.0.1Protocol posting date: July 2019The use of this protocol is recommended for clinical care purposes but is not required foraccreditation purposes. INVASIVE CARCINOMA OF THE BREAST: Biopsy. Procedure: Needle biopsy.Specimen Laterality: Right.Tumor Site: Upper inner quadrant.Histologic Type: Invasive carcinoma with ductal and lobular features.Histologic Grade ([place] Histologic Score): 6 of 9. Glandular (Acinar)/Tubular Differentiation: 3 Nuclear Pleomorphism: 2 Mitotic Rate: 1 Overall Grade: Grade 2.Ductal carcinoma In Situ: Present. Architectural Patterns: Solid. Nuclear Grade: Grade 2 (intermediate). Necrosis: Not identified.Lymphovascular Invasion: Not identified.Additional Pathologic Findings: N/A.Microcalcifications: Not identified.Ancillary Studies: Pending. Comment: As described, morphologically, there are small glandular structures and groups of Patient: NICHELLE DIAS Re01/07/20Loc: [facility] MR#: [id number] CONTINUED ON NEXT PAGE Dis: Sta: REG REF [facility] [address] [place] [address] Laboratory Printed: 01/13/20 0830 [facility] DAEMPathology Page: 3 Patient: NICHELLE DIAS [id number] (Continued) PATHOLOGIC DIAGNOSIS (Continued) cells that are most consistent with ductal carcinoma. However, there are also areas inwhich there is a single-file pattern. This suggests possible ductal and lobulardifferentiation. The relatively weak staining with E-cadherin and the fact that it issomewhat variable depending on the areas of morphology also suggests that this may representboth ductal and lobular differentiation. This will likely be better determined on anexcision specimen. I reviewed the diagnostic imaging report which describes a large poorly circumscribedspiculated solid mass that was classified as BI-RADS category 5 and correlates well with thehistologic findings. Paraffin block sent for hormone receptors. Addendum report to follow. This case was reviewed in intradepartmental consultation. Results discussed with Dr. Graves on 01/10/2020 at 1510 hours. Pathologist:Ras Miranda MD Entered by:01/10/20 - 3777 LAB.YGP--- --------- PROCEDURES: 99337, 75933, 41694/4 GROSS DESCRIPTION A. BREAST BIOPSY RIGHT BREAST The specimen is received in 10% formalin, and is labeled with the patient's name and "rightbreast". The specimen consists of multiple cores of yellow-morris to white soft tissue rangingfrom 0.7 to 1.6 cm in length, and each one measures up to0.1 cm in diameter. The entirespecimen is submitted in one cassette. This specimen is received along with a diagram which reveals that this biopsy is from theupper inner quadrant of the right breast.Patient: NICHELLE DIAS Re01/07/20Loc: [facility] MR#: [id number] CONTINUED ON NEXT PAGE Dis: Sta: REG REF [address] [address] Laboratory Printed: 01/13/20 0830 [facility] DAEMPathology Page: 4 Patient: NICHELLE DIAS [id number] (Continued) GROSS DESCRIPTION (Continued) Date/Time of collection: 01/07/2020 at 1315 hoursDate/Time specimen placed in formalin: 01/07/2020 at 1315 hoursDate/Time out of formalin: 01/09/2020 at 1830 hours Dictated by: PIERCE MANUEL Entered by: 01/07/20 - 1505 [facility].Y MICROSCOPIC DESCRIPTION Cores of breast tissue show a background of dense fibrosis and within it is mostly invasivecarcinoma. The cellsare arranged in small groups, small acinar structures, and asignificant component has a single file pattern. Overall, the tumor has followingcharacteristics: Tubule formation: Minimal less than 10%, s core = 3.Nuclear pleomorphism: Moderate increase in size, etc., score = 2.Mitotic count: Less than10 mitoses per 10 HPF, score = 1. There is also a small DCIS component with mostly a solid pattern and intermediate gradecytologic features. The following immunohistochemical stain has been performed (with adequate working control)with the following result: E-cadherin -- Positive in some neoplastic cells and negative n others, particularly thesingle-file component. Signed (Electronically Signed) Ras Miranda MD 01/10/20 Patient: NICHELLE DIAS Re01/07/20Loc: [facility] MR#: [id number] END OF REPORT Dis: Sta: REG REF- CT ANGIO [id number] 15:23:00 [place]: St: REG Name: NICHELLE DIAS [facility] : 1965 Age/S: 53/F [address] Unit: [id number] Loc: [place] [address] Phys: Lamin Monroe NP Acct: [id number] Dis Date: Status: REG ER PHONE #: [phone] Exam Date: 03/22/2019 1780 FAX #: [phone] Reason: ELEVATED D DIMER EXAMS: CPT CODE: [id number] CT ANGIO CHEST [address]5940 EXAM: CTA CHEST WITH CONTRAST EXAM: CT RIGHT SHOULDER WITH CONTRAST LOCATION: C3 HISTORY: RIGHT SHOULDER PAIN TECHNIQUE: Axial tomograms through the chest and right shoulder were obtained after intravenous contrast utilizing pulmonary embolus protocol. Coronal and sagittal reformatted images are provided. At least one MIP sequence was provided. This exam was performed according to our departmental dose-optimization program, which includes automated exposure control, adjustment of the mA and/or kV according to patient size and/or use of iterative reconstruction technique. COMPARISON: None available time of interpretation. FINDINGS: PULMONARY ARTERIES: No pulmonary embolism to the lobar level. LUNGS/PLEURA: The lungs are clear. No effusions. MEDIASTINUM: There is no pericardial effusion. The aorta tapers normally. The trachea is unremarkable. The esophagus is grossly unremarkable. LYMPHADENOPATHY: Prominent right axillary lymph nodes are identified. VISUALIZEDABDOMEN: Unremarkable. BONES: No acute osseous findings. Unremarkable appearance of the right shoulder joint. Specifically, no degenerative changes. SOFT TISSUES: 2.3 cm mass identified in the medial aspect of the right breast. Skin thickening and inflammation identified at the lateral aspect of the right breast adjacent to the axilla. IMPRESSION: No pulmonary embolism to the lobar level. No consolidation effusions. 2.3 cm mass at the medial aspect of the right breast. Recommend PAGE1 Signed Report (CONTINUED) [facility]: St: REG Name: NICHELLE DIAS [facility] : 1965 Age/S: 53/F [address] Unit: [id number] Loc: [place] [address] Phys: Lamin Monroe NP Acct: [id number] Dis Date: Status: REG ER PHONE #: [phone] Exam Date: 03/22/2019 2088 FAX #: [phone] Reason: ELEVATED D DIMER EXAMS: CPT CODE: [id number] CT ANGIO CHEST [address]240 <Continued> correlation with outside mammographic workup. Skin thickening and inflammatory changes identified at the lateral aspect of the right breast adjacent to the axilla concerning for cellulitis. Right axillary reactive lymphadenopathy. at 1523 Reported and signed by: Mile ROSENTHAL, Joel CC: Technologist: BRIAN BARRAGAN; DIANE PRECIADO Trnscrd Dt/Tm: 03/22/2019 (1523) [email or web address].[email or web address] Orig Print D/T: S: 03/22/2019 (1527 PAGE 2 Signed Report- CT UP EXTREM W/CONT [id number] 15:23:00 [facility]: St: REG Name: NICHELLE DIAS [facility] : 1965 Age/S: 53/F [address] Unit: [id number] Loc: [place] [address] Phys: Lamin Monroe NP Acct: [id number] Dis Date: Status: REG ER PHONE #: [phone] Exam Date: 03/22/2019 0001 FAX #: [phone] Reason: RIGHT SHOULDER PAIN EXAMS: CPT CODE: [id number] CT UP EXTREM W/[place] [address] EXAM: CTA CHEST WITH CONTRAST EXAM: CT RIGHT SHOULDER WITH CONTRAST LOCATION: C3 HISTORY: RIGHT SHOULDER PAIN TECHNI QUE: Axial tomograms through the chest and right shoulder were obtained after intravenous contrast utilizing pulmonary embolus protocol. Coronal and sagittal reformatted images are provided. At least one MIP sequence was provided. This exam was performed according to our departmental dose-optimization program, which includes automated exposure control, adjustment of the mA and/or kV according to patient size and/or use of iterative reconstruction technique. COMPARISON: None available time of interpretation. FINDINGS: PULMONARY ARTERIES: No pulmonary embolism to the lobar level. LUNGS/PLEURA: The lungs are clear. No effusions. MEDIASTINUM: There is no pericardial effusion. The aorta tapers normally. The trachea is unremarkable. The esophagus is grossly unremarkable. LYMPHADENOPATHY: Prominent right axillary lymph nodes are identified. VISUALIZEDABDOMEN: Unremarkable. BONES: No acute osseous findings. Unremarkable appearance of the right shoulder joint. Specifically, no degenerative changes. SOFT TISSUES: 2.3 cm mass identified in the medial aspect of the right breast. Skin thickening and inflammation identified at the lateral aspect of the right breast adjacent to the axilla. IMPRESSION: No pulmonary embolism to the lobar level. No consolidation effusions. 2.3 cm mass at the medial aspect of the right breast. 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 Skin thickening and inflammatory changes identified at the lateral aspect of the right breast adjacent to the axilla concerning for cellulitis. Right axillary reactive lymphadenopathy. 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 Location Code: B2 INDICATION: Pain. FINDINGS: No priors. No evidence of an acute fracture or dislocation. Bones are well mineralized and joint spaces well maintained. Soft tissues are within normal limits. IMPRESSION: 1. No acute osseous abnormality. at 1439 Reported and signed by: Jose Eduardo Atkins MD CC: Technologist: Nichelle Yusuf Trnscrd Date/Time/By: 03/22/2019 (8251) : By: [email or web address] PAGE 1 Signed Report [facility]: St: REG--------- Name: NICHELLE DIAS [facility] [place] : 1965 Age/S: 53/F [address] Unit #: [id number] Loc: [place] [address] Phys: Lamin Monroe NP Acct: [id number] Dis Date: Status: REG ER PHONE #: [phone] Exam Date: 03/22/2019 1400 FAX #: [phone] Reason: SHOULDER PAIN EXAMS: CPT CODE: [id number] XR SHOULDER 2 + V RT 55582 <Continued> Orig Print D/T: S: 03/22/2019 (5119) PAGE 2 Signed Report COMPREHENSIVE METABOLIC [id number] 14:07:00 Test Item Value Reference Range Interpretation Comments SODIUM (test code = 141 mmol/L 137-145 N NA) POTASSIUM (test code 3.6 mmol/L 3.4-5.0 N = K) CHLORIDE (test code 105 mmol/L 98-107 N = CL) CARBON DIOXIDE (test 30 mmol/L 22-30 N code = CO2) GLUCOSE (test code = 93 mg/dL 74-106 N GLU) BLOOD UREA NITROGEN 16 mg/dL 7-17 N (test code = BUN) GLOMERULAR >=60 max >60 The estimated FILTRATION RATE estimate glomerular (test code = GFR) filtration rate is computed usingpatient ra ce, age (>18), sex, and serum creatinin e. If anyof the ne eded data elements a re missing the Laboratory ga ot compute an estimation of t he glomerular filtration rate . CREATININE (test 0.9 mg/dL 0.5-1.0 N code = CREAT) TOTAL PROTEIN (test 7.8 g/dL 6.3-8.2 N code = PROT) ALBUMIN (test code = 4.3 g/dL 3.5-5.0 N ALB) CALCIUM (test code = 9.9 mg/dL 8.4-10.2 N CA) BILIRUBIN TOTAL 0.4 mg/dL 0.2-1.3 N (test code = BILT) BILIRUBIN CONJUGATED 0 mg/dL 0-0.3 N ~~~~~~~ ~~~~~~~~~~~~ (test code = BILCON) ~~~~~~~ ~~~~~~~~~~~~ ~~~~~~~~~~~~~~~ ~~~~ ~~~CONJUGATED BILIRUBIN IS TH E REPLACEMENT ASS AY FOR DIRECTBILIRUBIN .~~~ ~~~~~~~~~~~~~~~ ~~~~ ~~~~~~~~~~~~~~~ ~~~~ ~~~~~~~~~~~~~~~ ~~~~ BILIRUBIN 0 mg/dL 0-1.1 N UNCONJUGATED (test code = BILUNC) SGOT/AST (test code 24 U/L 15-46 N = AST) SGPT/ALT (test code 21 U/L 13-69 N = ALT) ALKALINE PHOSPHATASE 114 U/L 38-126 N (test code = ALKP) [id number] 14:07:00 Test Item Value Reference Range Interpretation Comments LIPASE (test code = LIP) 123 U/L 23-300 N COMPREHENSIVE METABOLIC [id number] 14:06:00 Test Item Value Reference Range Interpretation Comments SODIUM (test code = 141 mmol/L 137-145 N NA) POTASSIUM (test code 3.6 mmol/L 3.4-5.0 N = K) CHLORIDE (test code 105 mmol/L 98-107 N = CL) CARBON DIOXIDE (test 30 mmol/L 22-30 N code = CO2) GLUCOSE (test code = 93 mg/dL 74-106 N GLU) BLOOD UREA NITROGEN 16 mg/dL 7-17 N (test code = BUN) GLOMERULAR >=60 max >60 The estimated FILTRATION RATE estimate glomerular (test code = GFR) filtration rate is computed usingpatient ra ce, age (>18), sex, and serum creatinin e. If anyof the ne eded data elements a re missing the Laboratory ga ot compute an estimation of t he glomerular filtration rate . CREATININE (test 0.9 mg/dL 0.5-1.0 N code = CREAT) TOTAL PROTEIN (test 7.8 g/dL 6.3-8.2 N code = PROT) ALBUMIN (test code = 4.3 g/dL 3.5-5.0 N ALB) CALCIUM (test code = 9.9 mg/dL 8.4-10.2 N CA) BILIRUBIN TOTAL 0.4 mg/dL 0.2-1.3 N (test code = BILT) BILIRUBIN CONJUGATED 0 mg/dL 0-0.3 N ~~~~~~~ ~~~~~~~~~~~~ (test code = BILCON) ~~~~~~~ ~~~~~~~~~~~~ ~~~~~~~~~~~~~~~ ~~~~ ~~~CONJUGATED BILIRUBIN IS TH E REPLACEMENT ASS AY FOR DIRECTBILIRUBIN .~~~ ~~~~~~~~~~~~~~~ ~~~~ ~~~~~~~~~~~~~~~ ~~~~ ~~~~~~~~~~~~~~~ ~~~~ BILIRUBIN 0 mg/dL 0-1.1 N UNCONJUGATED (test code = BILUNC) SGOT/AST (test code 24 U/L 15-46 N = AST) SGPT/ALT (test code 21 U/L 13-69 N = ALT) ALKALINE PHOSPHATASE 114 U/L 38-126 N (test code = ALKP) [id number] 14:06:00 Test Item Value Reference Range Interpretation Comments LIPASE (test code = LIP) U/L 23-300 [id number] 14:02:00 Test Item Value Reference Range Interpretation Comments D-DIMER (test 583 ng/mLFEU 0-500 HH Critical Value reported code = toFirst Name:LP [id number] Last DDIMER) Name:RESULTS RE AD BACK AND VERIFIEDby CRISTIANA GALVEZ, on 03/22/19, @ 140 2.THE DDIMER METHOD IS USED IN THE EXCLUSION OF DE EP VEINTHROMBOSIS AND/OR PULMONARY EMBOL ISM AND THE CLINICAL CUT-OF F VALUE FOR EXCLUSION (500 NG/ML FEU) OF THESE CONDITION SIS VALIDATED BY THE MANUFACT URER OF THE METHOD. A NEGAT TREMAINE DDIMER RESULT WHEN COM BINED WITH A CLINICALASSESSM ENT OF LOW PRETEST PROBABI LITY HAS BEEN SHOWN TO HAVEA HIGH NEGATIVE PREDICTIVE VALU E OF DVT OR PE. D-DIMER SHOBHA UES >500 ng/mL ARE NOT D IAGNOSTIC FOR DVT,PEOR DIC WI THOUT OTHER CONFIRMATORY TE STS AND APPROPRIATECLIN ICAL EVALUATIONS. TROPONIN I [id number] 13:54:00 Test Item Value Reference Range Interpretation Comments TROPONIN I RAPID 0.00 ng/mL 0.00-0.079 N ISTAT (test code = TROPONIN I TROPIRAP) CRITERIA0.00-0. 08 ng/mL - Negative>0.08 n g/mL - Positive The us e of serial sampling and te sting protocol is are commended practice.An thuan vated troponin level alone is often not suffi cient fordiagnosis of myocardial infarction. Tro ponin results obtaine d by different assay s may vary.Evaluation of the extent of myoca rdial damage based on increase of troponin would be valid only if similar methodology is used. CBC W/AUTO [id number] 13:50:00 Test Item Value Reference Range Interpretation Comments WHITE BLOOD CELL (test code = 15.4 x10 3/uL 5.0-12.0 H WBC) RED BLOOD CELL (test code = 4.50 x10 6/uL 4.20-5.40 N RBC) HEMOGLOBIN (test code = HGB) 12.2 g/dL 12.0-16.0 N HEMATOCRIT (test code = HCT) 37.8 % 36.0-46.0 N MEAN CELL VOLUME (test code = 84 fL 81-99 N MCV) MEAN CELL HGB (test code = 27.1 pg 27-31 N MCH) MEAN CELL HGB CONCENTRATION 32.3 g/dL 33-37 L (test code = MCHC) RED CELL DISTRIBUTION WIDTH 14.2 % 11.5-15.5 N (test code = RDW) PLATELET COUNT (test code = 264 x10 3/uL 130-400 N PLT) MEAN PLATELET VOLUME (test 11.3 fL 9.4-16.4 N code = MPV) NEUTROPHIL % (test code = NT%) 76.6 % 43-65 H IMMATURE GRANULOCYTE % (test 0.6 % 0.0-2.0 N code = IG%) LYMPHOCYTE % (test code = LY%) 14.7 % 20.5-45.5 L MONOCYTE % (test code = MO%) 5.8 % 5.5-11.7 N EOSINOPHIL % (test code = EO%) 2.0 % 0.9-2.9 N BASOPHIL % (test code = BA%) 0.3 % 0.2-1.0 N NUCLEATED RBC % (test code = 0.0 % 0-1.0 N NRBC%) NEUTROPHIL # (test code = NT#) 11.77 x10 3/uL 2.2-4.8 H IMMATURE GRANULOCYTE # (test 0.09 x10 3/uL 0-0.03 H code = IG#) LYMPHOCYTE # (test code = LY#) 2.25 x10 3/uL 1.3-2.9 N MONOCYTE # (test code = MO#) 0.89 x10 3/uL 0.3-0.8 H EOSINOPHIL # (test code = EO#) 0.30 x10 3/uL 0.0-0.2 H BASOPHIL # (test code = BA#) 0.05 x10 3/uL 0.0-0.1 N - XR CHEST 1 [id number] 13:42:00 Bostic: St: REG Name: NICHELLE DIAS : 1965 Age/S: 53/F [address] Unit#: [id number] Loc: [place] [address] Phys: Lamin Monroe NP Acct: [id number] Dis Date: Status: REG ER PHONE #: [phone] Exam Date: 03/22/2019 1310 FAX #: [phone] Reason: RIGHT SIDED CHEST PAIN EXAMS: CPT CODE: [id number] XR CHEST 1 V [id number] HISTORY: Right-sided abdominal pain Location: C3 COMPARISON:06/01/2018 FINDINGS: Heart size is upper normal. No vascular congestion. The lungs are clear of focal consolidation. No effusion, pneumothorax, or acute osseous abnormality. IMPRESSION: 1. No focal consolidation. No other acute abnormalities. at 1342 Reported and signed by: Suhail Smith MD CC: Technologist: Nichelle Yusuf Trnscrd Date/Time/By: 03/22/2019 (3694) : By: [email or web address] PAGE 1 Signed Report Bostic: St: REG ---- Name: NICHELLE DIAS [facility] : 1965 Age/S: 53/F [address] Unit #: [id number] Loc: [place] [address] Phys: Lamin Monroe NPAcct: [id number] Dis Date: Status: REG ER PHONE #: [phone] Exam Date: 03/22/2019 1310 FAX #: [phone] Reason: RIGHT SIDED CHEST PAIN EXAMS: CPT CODE: [id number] XR CHEST 1 V 51068 <Continued> Orig Print D/T: S: 03/22/2019 (7992) PAGE 2 Signed ReportAFB CULTURE + [id number] 19:07:00 Test Item Value Reference Range Interpretation Comments CULTURE (BEAKER) (test No acid-fast bacilli code = 1095) isolated in 42 days AFB SMEAR (BEAKER) No acid fast bacilli (test code = 994) seen FUNGUS CULTURE + [id number] 09:30:00 Test Item Value Reference Range Interpretation Comments CULTURE (BEAKER) (test No fungus isolated in code = 1095) 28 days FUNGUS SMEAR (BEAKER) No fungi seen (test code = 1406) ANAEROBIC [id number] 03:16:00 Test Item Value Reference Range Interpretation Comments CULTURE (BEAKER) (test No anaerobes isolated code = 1095) URINE [id number] 11:43:00 Test Item Value Reference Range Interpretation Comments CULTURE (BEAKER) (test code = 1095) No growth SPIN/CONCENTRATION [id number] 01:46:00 Test Item Value Reference Range Interpretation Comments CONCENTRATION CHARGED (BEAKER) (test Done code = 2657) URINE [id number] 08:07:00 Test Item Value Reference Range Interpretation Comments CULTURE (BEAKER) (test code = See comment 1095) <10,000 col/mL Gram Negative Greg>100,000 col/mL skin floraBASIC METABOLIC [id number] 06:44:00 Test Item Value Reference Range Interpretation Comments SODIUM (BEAKER) 143 meq/L 136-145 (test code = 381) POTASSIUM (BEAKER) 4.2 meq/L 3.5-5.1 (test code = 379) CHLORIDE (BEAKER) 111 meq/L 98-107 H (test code = 382) CO2 (BEAKER) (test 24 meq/L 22-29 code = 355) BLOOD UREA NITROGEN 16 mg/dL 7-21 (BEAKER) (test code = 354) CREATININE (BEAKER) 0.98 mg/dL 0.57-1.25 (test code = 358) GLUCOSE RANDOM 144 mg/dL 70-105 H (BEAKER) (test code = 652) CALCIUM (BEAKER) 9.5 mg/dL 8.4-10.2 (test code = 697) EGFR (BEAKER) (test 59 mL/min/1.73 ESTIMA MICHELL GFR IS code = 1092) sq m NOT ACCURATE CREATININE CLEARANCE IN PREDICTING GLOMERULAR FILTRATION RATE . ESTIMATED GFR I S NOT APPLICABLE FOR DIALYSIS PATIEN TS. CBC (HEMOGRAM ONLY)2017-07-01 06:24:00 Test Item Value Reference Range Interpretation Comments WHITE BLOOD CELL COUNT (BEAKER) 8.9 K/ L 3.5-10.5 (test code = 775) RED BLOOD CELL COUNT (BEAKER) 3.79 M/ L 3.93-5.22 L (test code = 761) HEMOGLOBIN (BEAKER) (test code = 10.6 GM/DL 11.2-15.7 L 410) HEMATOCRIT (BEAKER) (test code = 33.2 % 34.1-44.9 L 411) MEAN CORPUSCULAR VOLUME (BEAKER) 87.6 fL 79.4-94.8 (test code = 753) MEAN CORPUSCULAR HEMOGLOBIN 28.0 pg 25.6-32.2 (BEAKER) (test code = 751) MEAN CORPUSCULAR HEMOGLOBIN CONC 31.9 GM/DL 32.2-35.5 L (BEAKER) (test code = 752) RED CELL DISTRIBUTION WIDTH 15.2 % 11.7-14.4 H (BEAKER) (test code = 412) PLATELET COUNT (BEAKER) (test 245 K/CU MM 150-450 code = 756) MEAN PLATELET VOLUME (BEAKER) 11.8 fL 9.4-12.3 (test code = 754) NUCLEATED RED BLOOD CELLS 0 /100 WBC 0-0 (BEAKER) (test code = 413) CREATINE KINASE (CK), TOTAL AND [id number] 03:27:00 Test Item Value Reference Range Interpretation Comments CREATINE KINASE TOTAL (BEAKER) 124 U/L 29-200 (test code = 380) CREATINE KINASE-MB (BEAKER) (test 1.1 ng/mL 0.0-6.6 code = 750) CREATINE KINASE-MB INDEX (BEAKER) 0.9 % (test code = 395) Effective 10/18/2014: CK-MB Reference Range ChangeNew: 0.0-6.6 Previous: 0.0-4.9CK-MB Reference Range:<6.7 Normal6.7-10.0 Borderline>10.0 AbnormalTROPONIN [id number] 03:27:00 Test Item Value Reference Range Interpretation Comments TROPONIN I (BEAKER) (test code = 397) < ng/mL 0.00-0.03 Effective 10/18/2014: Reference Range ChangeNew: 0.00-0.03 Previous 0.00- 0.15Troponin I (TnI) levels must be interpreted in the context of the presenting symptoms and the clinical findings. Elevated TnI levels indicate myocardial damage, but are not specific for ischemic heart disease. Elevated TnI levels are seen in patients with other cardiac conditions (including myocarditis and congestive heartfailure), and slight TnI elevations occur in patients with other conditions, including sepsis, renalfailure, acidosis, acute neurological disease, and persistent tachyarrhythmia.BASIC METABOLIC [id number] 18:04:00 Test Item Value Reference Range Interpretation Comments SODIUM (BEAKER) 142 meq/L 136-145 (test code = 381) POTASSIUM (BEAKER) 2.9 meq/L 3.5-5.1 L (test code = 379) CHLORIDE (BEAKER) 111 meq/L 98-107 H (test code = 382) CO2 (BEAKER) (test 24 meq/L 22-29 code = 355) BLOOD UREA NITROGEN 11 mg/dL 7-21 (BEAKER) (test code = 354) CREATININE (BEAKER) 0.82 mg/dL 0.57-1.25 (test code = 358) GLUCOSE RANDOM 89 mg/dL 70-105 (BEAKER) (test code = 652) CALCIUM (BEAKER) 9.0 mg/dL 8.4-10.2 (test code = 697) EGFR (BEAKER) (test 73 mL/min/1.73 ESTIMA MICHELL GFR IS code = 1092) sq m NOT ACCURATE CREATININE CLEARANCE IN PREDICTING GLOMERULAR FILTRATION RATE . ESTIMATED GFR I S NOT APPLICABLE FOR DIALYSIS PATIEN TS. CBC (HEMOGRAM ONLY)2017-06-30 07:07:00 Test Item Value Reference Range Interpretation Comments WHITE BLOOD CELL COUNT (BEAKER) 8.0 K/ L 3.5-10.5 (test code = 775) RED BLOOD CELL COUNT (BEAKER) 3.51 M/ L 3.93-5.22 L (test code = 761) HEMOGLOBIN (BEAKER) (test code = 9.9 GM/DL 11.2-15.7 L 410) HEMATOCRIT (BEAKER) (test code = 30.3 % 34.1-44.9 L 411) MEAN CORPUSCULAR VOLUME (BEAKER) 86.3 fL 79.4-94.8 (test code = 753) MEAN CORPUSCULAR HEMOGLOBIN 28.2 pg 25.6-32.2 (BEAKER) (test code = 751) MEAN CORPUSCULAR HEMOGLOBIN CONC 32.7 GM/DL 32.2-35.5 (BEAKER) (test code = 752) RED CELL DISTRIBUTION WIDTH 15.5 % 11.7-14.4 H (BEAKER) (test code = 412) PLATELET COUNT (BEAKER) (test 228 K/CU MM 150-450 code = 756) MEAN PLATELET VOLUME (BEAKER) 12.2 fL 9.4-12.3 (test code = 754) NUCLEATED RED BLOOD CELLS 0 /100 WBC 0-0 (BEAKER) (test code = 413) [id number] 05:59:00 Test Item Value Reference Range Interpretation Comments PHOSPHORUS (BEAKER) (test code = 4.1 mg/dL 2.3-4.7 604) [id number] 05:59:00 Test Item Value Reference Range Interpretation Comments MAGNESIUM (BEAKER) (test code = 1.9 mg/dL 1.6-2.6 627) BASIC METABOLIC [id number] 05:59:00 Test Item Value Reference Range Interpretation Comments SODIUM (BEAKER) 139 meq/L 136-145 (test code = 381) POTASSIUM (BEAKER) 2.9 meq/L 3.5-5.1 L (test code = 379) CHLORIDE (BEAKER) 106 meq/L 98-107 (test code = 382) CO2 (BEAKER) (test 24 meq/L 22-29 code = 355) BLOOD UREA NITROGEN 14 mg/dL 7-21 (BEAKER) (test code = 354) CREATININE (BEAKER) 0.88 mg/dL 0.57-1.25 (test code = 358) GLUCOSE RANDOM 91 mg/dL 70-105 (BEAKER) (test code = 652) CALCIUM (BEAKER) 8.7 mg/dL 8.4-10.2 (test code = 697) EGFR (BEAKER) (test 67 mL/min/1.73 ESTIMA MICHELL GFR IS code = 1092) sq m NOT ACCURATE CREATININE CLEARANCE IN PREDICTING GLOMERULAR FILTRATION RATE . ESTIMATED GFR I S NOT APPLICABLE FOR DIALYSIS PATIEN TS. [id number] 22:39:00 Test Item Value Reference Range Interpretation Comments PARTIAL THROMBOPLASTIN TIME 30.5 seconds 22.5-36.0 (BEAKER) (test code = 760) PROTHROMBIN TIME/[id number] 22:38:00 Test Item Value Reference Range Interpretation Comments PROTIME (BEAKER) (test code = 13.3 seconds 11.7-14.7 759) INR (BEAKER) (test code = 370) 1.0 <=5.9 RECOMMENDED COUMADIN/WARFARIN INR THERAPY RANGESSTANDARD DOSE: 2.0 - 3.0 Includes: PROPHYLAXIS forvenous thrombosis, systemic embolization; TREATMENT for venous thrombosis and/or pulmonary embolus.HIGH RISK: Target INR is 2.5-3.5 for patients with mechanical heart valves.URINALYSIS W/ [id number] 21:18:00 Test Item Value Reference Range Interpretation Comments COLOR (BEAKER) (test code = Yellow 470) CLARITY (BEAKER) (test code = Hazy 469) SPECIFIC GRAVITY UA (BEAKER) 1.015 1.001-1.035 (test code = 468) PH UA (BEAKER) (test code = 6.0 5.0-8.0 467) PROTEIN UA (BEAKER) (test code 50 mg/dL Negative A = 464) GLUCOSE UA (BEAKER) (test code Negative Negative = 365) KETONES UA (BEAKER) (test code Negative Negative = 371) BILIRUBIN UA (BEAKER) (test Negative Negative code = 462) BLOOD UA (BEAKER) (test code = Moderate Negative A 461) NITRITE UA (BEAKER) (test code Negative Negative = 465) LEUKOCYTE ESTERASE UA (BEAKER) Large Negative A (test code = 466) UROBILINOGEN UA (BEAKER) (test 0.2 mg/dL 0.2-1.0 code = 463) RBC UA (BEAKER) (test code = 115 /HPF 519) WBC UA (BEAKER) (test code = 57 /HPF 520) BACTERIA (BEAKER) (test code = Rare 517) MUCUS (BEAKER) (test code = Rare 1574) SQUAMOUS EPITHELIAL (BEAKER) 7 /HPF (test code = 516) SOURCE(BEAKER) (test code = Urine, Voided 3785) [id number] 15:21:00 Test Item Value Reference Range Interpretation Comments LIPASE (BEAKER) (test code = 749) 24 U/L 8-78 [id number] 15:21:00 Test Item Value Reference Range Interpretation Comments AMYLASE (BEAKER) (test code = 349) 42 U/L 25-125 BASIC METABOLIC [id number] 15:21:00 Test Item Value Reference Range Interpretation Comments SODIUM (BEAKER) 142 meq/L 136-145 (test code = 381) POTASSIUM (BEAKER) 3.1 meq/L 3.5-5.1 L (test code = 379) CHLORIDE (BEAKER) 107 meq/L 98-107 (test code = 382) CO2 (BEAKER) (test 26 meq/L 22-29 code = 355) BLOOD UREA NITROGEN 13 mg/dL 7-21 (BEAKER) (test code = 354) CREATININE (BEAKER) 1.05 mg/dL 0.57-1.25 (test code = 358) GLUCOSE RANDOM 103 mg/dL 70-105 (BEAKER) (test code = 652) CALCIUM (BEAKER) 10.0 mg/dL 8.4-10.2 (test code = 697) EGFR (BEAKER) (test 55 mL/min/1.73 ESTIMA MICHELL GFR IS code = 1092) sq m NOT ACCURATE CREATININE CLEARANCE IN PREDICTING GLOMERULAR FILTRATION RATE . ESTIMATED GFR I S NOT APPLICABLE FOR DIALYSIS PATIEN TS. HEPATIC FUNCTION [id number] 15:21:00 Test Item Value Reference Range Interpretation Comments TOTAL PROTEIN (BEAKER) (test code = 7.3 gm/dL 6.0-8.3 770) ALBUMIN (BEAKER) (test code = 1145) 4.0 g/dL 3.5-5.0 BILIRUBIN TOTAL (BEAKER) (test code 0.5 mg/dL 0.2-1.2 = 377) BILIRUBIN DIRECT (BEAKER) (test 0.2 mg/dL 0.1-0.5 code = 706) ALKALINE PHOSPHATASE (BEAKER) (test 98 U/L 40-150 code = 346) AST (SGOT) (BEAKER) (test code = 16 U/L 5-34 353) ALT (SGPT) (BEAKER) (test code = 14 U/L 6-55 347) CBC W/PLT COUNT & AUTO [id number] 15:00:00 Test Item Value Reference Range Interpretation Comments WHITE BLOOD CELL COUNT (BEAKER) 8.2 K/ L 3.5-10.5 (test code = 775) RED BLOOD CELL COUNT (BEAKER) 4.11 M/ L 3.93-5.22 (test code = 761) HEMOGLOBIN (BEAKER) (test code = 11.3 GM/DL 11.2-15.7 410) HEMATOCRIT (BEAKER) (test code = 35.3 % 34.1-44.9 411) MEAN CORPUSCULAR VOLUME (BEAKER) 85.9 fL 79.4-94.8 (test code = 753) MEAN CORPUSCULAR HEMOGLOBIN 27.5 pg 25.6-32.2 (BEAKER) (test code = 751) MEAN CORPUSCULAR HEMOGLOBIN CONC 32.0 GM/DL 32.2-35.5 L (BEAKER) (test code = 752) RED CELL DISTRIBUTION WIDTH 15.1 % 11.7-14.4 H (BEAKER) (test code = 412) PLATELET COUNT (BEAKER) (test 277 K/CU MM 150-450 code = 756) MEAN PLATELET VOLUME (BEAKER) 11.5 fL 9.4-12.3 (test code = 754) NUCLEATED RED BLOOD CELLS 0 /100 WBC 0-0 (BEAKER) (test code = 413) NEUTROPHILS RELATIVE PERCENT 58 % (BEAKER) (test code = 429) LYMPHOCYTES RELATIVE PERCENT 29 % (BEAKER) (test code = 430) MONOCYTES RELATIVE PERCENT 7 % (BEAKER) (test code = 431) EOSINOPHILS RELATIVE PERCENT 5 % (BEAKER) (test code = 432) BASOPHILS RELATIVE PERCENT 1 % (BEAKER) (test code = 437) NEUTROPHILS ABSOLUTE COUNT 4.78 K/ L 1.56-6.13 (BEAKER) (test code = 670) LYMPHOCYTES ABSOLUTE COUNT 2.39 K/ L 1.18-3.74 (BEAKER) (test code = 414) MONOCYTES ABSOLUTE COUNT (BEAKER) 0.54 K/ L 0.24-0.36 H (test code = 415) EOSINOPHILS ABSOLUTE COUNT 0.38 K/ L 0.04-0.36 H (BEAKER) (test code = 416) BASOPHILS ABSOLUTE COUNT (BEAKER) 0.08 K/ L 0.01-0.08 (test code = 417) IMMATURE GRANULOCYTES-RELATIVE 0 % 0-1 PERCENT (BEAKER) (test code = 2801) BLOOD [id number] 00:00:00 Test Item Value Reference Range Interpretation Comments CULTURE (BEAKER) (test No growth in 5 days code = 1095) BLOOD [id number] 00:00:00 Test Item Value Reference Range Interpretation Comments CULTURE (BEAKER) (test No growth in 5 days code = 1095) CLOSTRIDIUM DIFFICILE TOXIN [id number] 10:05:00 Test Item Value Reference Range Interpretation Comments CLOSTRIDIUM DIFFICILE TOXIN, PCR Not Detected Not Detected (BEAKER) (test code = 1525) This qualitative real-time polymerase chain reaction assay detects the tcdB gene, encoded on the C.difficile pathogenicity locus (PaLoc). The product of tcdB, toxin B, is a cytotoxin essential for causing C.difficile-associated disease (CDAD) and is found in virtually all toxigenic C.difficile.This assay is performed for patients suspected of having either community-acquired or nosocomial CDAD. Accordingly, only symptomatic patients should be tested and formed stools will be rejected unless ileus is present (i.e., specified when ordering). Patients may be colonized with toxigenic C.difficile strains not causing active disease; therefore, clinical correlation is needed when deciding how to manage patients with a positive test result.The assay has not been validated as a test of cure as amplifiable nucleic acid may persist after effective treatment; therefore, follow-up testing of a positive result is not recommended.URINE [id number] 09:28:00 Test Item Value Reference Range Interpretation Comments CULTURE (BEAKER) (test code = 1095) No growth CBC W/PLT COUNT & AUTO [id number] 05:31:00 Test Item Value Reference Range Interpretation Comments WHITE BLOOD CELL COUNT (BEAKER) 14.2 K/ L 4.0-10.0 H (test code = 775) RED BLOOD CELL COUNT (BEAKER) 3.30 M/ L 4.00-5.00 L (test code = 761) HEMOGLOBIN (BEAKER) (test code = 10.0 GM/DL 12.0-15.0 L 410) HEMATOCRIT (BEAKER) (test code = 29.2 % 36.0-45.0 L 411) MEAN CORPUSCULAR VOLUME (BEAKER) 88.6 fL 82.0-99.0 (test code = 753) MEAN CORPUSCULAR HEMOGLOBIN 30.4 pg 27.0-33.0 (BEAKER) (test code = 751) MEAN CORPUSCULAR HEMOGLOBIN CONC 34.3 GM/DL 32.0-36.0 (BEAKER) (test code = 752) RED CELL DISTRIBUTION WIDTH 15.8 % 10.3-14.2 H (BEAKER) (test code = 412) PLATELET COUNT (BEAKER) (test 217 K/CU MM 150-430 code = 756) MEAN PLATELET VOLUME (BEAKER) 8.7 fL 6.5-10.5 (test code = 754) NUCLEATED RED BLOOD CELLS 0 /100 WBC 0-0 (BEAKER) (test code = 413) NEUTROPHILS RELATIVE PERCENT 84 % (BEAKER) (test code = 429) LYMPHOCYTES RELATIVE PERCENT 9 % (BEAKER) (test code = 430) MONOCYTES RELATIVE PERCENT 5 % (BEAKER) (test code = 431) EOSINOPHILS RELATIVE PERCENT 2 % (BEAKER) (test code = 432) BASOPHILS RELATIVE PERCENT 0 % (BEAKER) (test code = 437) NEUTROPHILS ABSOLUTE COUNT 11.90 K/ L 1.80-8.00 H (BEAKER) (test code = 670) LYMPHOCYTES ABSOLUTE COUNT 1.29 K/ L 1.48-4.50 L (BEAKER) (test code = 414) MONOCYTES ABSOLUTE COUNT (BEAKER) 0.70 K/ L 0.00-1.30 (test code = 415) EOSINOPHILS ABSOLUTE COUNT 0.29 K/ L 0.00-0.50 (BEAKER) (test code = 416) BASOPHILS ABSOLUTE COUNT (BEAKER) 0.02 K/ L 0.00-0.20 (test code = 417) [id number] 05:26:00 Test Item Value Reference Range Interpretation Comments PHOSPHORUS (BEAKER) (test code = 3.4 mg/dL 2.3-4.7 604) [id number] 05:26:00 Test Item Value Reference Range Interpretation Comments MAGNESIUM (BEAKER) (test code = 1.6 mg/dL 1.6-2.6 627) BASIC METABOLIC [id number] 05:26:00 Test Item Value Reference Range Interpretation Comments SODIUM (BEAKER) 142 meq/L 136-145 (test code = 381) POTASSIUM (BEAKER) 3.4 meq/L 3.5-5.1 L (test code = 379) CHLORIDE (BEAKER) 114 meq/L 98-107 H (test code = 382) CO2 (BEAKER) (test 19 meq/L 22-29 L code = 355) BLOOD UREA NITROGEN 19 mg/dL 7-21 (BEAKER) (test code = 354) CREATININE (BEAKER) 1.17 mg/dL 0.57-1.25 (test code = 358) GLUCOSE RANDOM 80 mg/dL 70-105 (BEAKER) (test code = 652) CALCIUM (BEAKER) 9.0 mg/dL 8.4-10.2 (test code = 697) EGFR (BEAKER) (test 48 mL/min/1.73 ESTIMA MICHELL GFR IS code = 1092) sq m NOT ACCURATE CREATININE CLEARANCE IN PREDICTING GLOMERULAR FILTRATION RATE . ESTIMATED GFR I S NOT APPLICABLE FOR DIALYSIS PATIEN TS. URINE [id number] 12:42:00 Test Item Value Reference Range Interpretation Comments CULTURE (BEAKER) (test 80-89,000 col/mL skin code = 1095) scottie CBC W/PLT COUNT & AUTO [id number] 10:02:00 Test Item Value Reference Range Interpretation Comments WHITE BLOOD CELL COUNT (BEAKER) 22.0 K/ L 4.0-10.0 H (test code = 775) RED BLOOD CELL COUNT (BEAKER) 3.21 M/ L 4.00-5.00 L (test code = 761) HEMOGLOBIN (BEAKER) (test code = 9.7 GM/DL 12.0-15.0 L 410) HEMATOCRIT (BEAKER) (test code = 28.6 % 36.0-45.0 L 411) MEAN CORPUSCULAR VOLUME (BEAKER) 89.0 fL 82.0-99.0 (test code = 753) MEAN CORPUSCULAR HEMOGLOBIN 30.1 pg 27.0-33.0 (BEAKER) (test code = 751) MEAN CORPUSCULAR HEMOGLOBIN CONC 33.8 GM/DL 32.0-36.0 (BEAKER) (test code = 752) RED CELL DISTRIBUTION WIDTH 15.2 % 10.3-14.2 H (BEAKER) (test code = 412) PLATELET COUNT (BEAKER) (test 187 K/CU MM 150-430 code = 756) MEAN PLATELET VOLUME (BEAKER) 8.7 fL 6.5-10.5 (test code = 754) NUCLEATED RED BLOOD CELLS 0 /100 WBC 0-0 (BEAKER) (test code = 413) NEUTROPHILS RELATIVE PERCENT 94 % (BEAKER) (test code = 429) LYMPHOCYTES RELATIVE PERCENT 2 % (BEAKER) (test code = 430) MONOCYTES RELATIVE PERCENT 3 % (BEAKER) (test code = 431) EOSINOPHILS RELATIVE PERCENT 0 % (BEAKER) (test code = 432) BASOPHILS RELATIVE PERCENT 0 % (BEAKER) (test code = 437) NEUTROPHILS ABSOLUTE COUNT 20.70 K/ L 1.80-8.00 H (BEAKER) (test code = 670) LYMPHOCYTES ABSOLUTE COUNT 0.47 K/ L 1.48-4.50 L (BEAKER) (test code = 414) MONOCYTES ABSOLUTE COUNT (BEAKER) 0.75 K/ L 0.00-1.30 (test code = 415) EOSINOPHILS ABSOLUTE COUNT 0.01 K/ L 0.00-0.50 (BEAKER) (test code = 416) BASOPHILS ABSOLUTE COUNT (BEAKER) 0.00 K/ L 0.00-0.20 (test code = 417) 0.000.610.000.000.580.000.000.000.00(MANUAL DIFFERENTIAL)2017-06-01 10:02:00 Test Item Value Reference Range Interpretation Comments TOTAL COUNTED (BEAKER) (test code = 1351) [id number] 04:42:00 Test Item Value Reference Range Interpretation Comments MAGNESIUM (BEAKER) (test code = 1.4 mg/dL 1.6-2.6 L 627) BASIC METABOLIC [id number] 04:42:00 Test Item Value Reference Range Interpretation Comments SODIUM (BEAKER) 136 meq/L 136-145 (test code = 381) POTASSIUM (BEAKER) 4.2 meq/L 3.5-5.1 (test code = 379) CHLORIDE (BEAKER) 109 meq/L 98-107 H (test code = 382) CO2 (BEAKER) (test 20 meq/L 22-29 L code = 355) BLOOD UREA NITROGEN 28 mg/dL 7-21 H (BEAKER) (test code = 354) CREATININE (BEAKER) 1.55 mg/dL 0.57-1.25 H (test code = 358) GLUCOSE RANDOM 129 mg/dL 70-105 H (BEAKER) (test code = 652) CALCIUM (BEAKER) 8.2 mg/dL 8.4-10.2 L (test code = 697) EGFR (BEAKER) (test 35 mL/min/1.73 ESTIMA MICHELL GFR IS code = 1092) sq m NOT ACCURATE CREATININE CLEARANCE IN PREDICTING GLOMERULAR FILTRATION RATE . ESTIMATED GFR I S NOT APPLICABLE FOR DIALYSIS PATIEN TS. CBC W/PLT COUNT & AUTO [id number] 13:28:00 Test Item Value Reference Range Interpretation Comments WHITE BLOOD CELL COUNT (BEAKER) 22.3 K/ L 4.0-10.0 H (test code = 775) RED BLOOD CELL COUNT (BEAKER) 3.51 M/ L 4.00-5.00 L (test code = 761) HEMOGLOBIN (BEAKER) (test code = 10.1 GM/DL 12.0-15.0 L 410) HEMATOCRIT (BEAKER) (test code = 31.3 % 36.0-45.0 L 411) MEAN CORPUSCULAR VOLUME (BEAKER) 89.1 fL 82.0-99.0 (test code = 753) MEAN CORPUSCULAR HEMOGLOBIN 28.8 pg 27.0-33.0 (BEAKER) (test code = 751) MEAN CORPUSCULAR HEMOGLOBIN CONC 32.3 GM/DL 32.0-36.0 (BEAKER) (test code = 752) RED CELL DISTRIBUTION WIDTH 14.6 % 10.3-14.2 H (BEAKER) (test code = 412) PLATELET COUNT (BEAKER) (test 198 K/CU MM 150-430 code = 756) MEAN PLATELET VOLUME (BEAKER) 8.6 fL 6.5-10.5 (test code = 754) NUCLEATED RED BLOOD CELLS 0 /100 WBC 0-0 (BEAKER) (test code = 413) NEUTROPHILS RELATIVE PERCENT 93 % (BEAKER) (test code = 429) LYMPHOCYTES RELATIVE PERCENT 4 % (BEAKER) (test code = 430) MONOCYTES RELATIVE PERCENT 3 % (BEAKER) (test code = 431) EOSINOPHILS RELATIVE PERCENT 0 % (BEAKER) (test code = 432) BASOPHILS RELATIVE PERCENT 0 % (BEAKER) (test code = 437) NEUTROPHILS ABSOLUTE COUNT 20.60 K/ L 1.80-8.00 H (BEAKER) (test code = 670) LYMPHOCYTES ABSOLUTE COUNT 0.87 K/ L 1.48-4.50 L (BEAKER) (test code = 414) MONOCYTES ABSOLUTE COUNT (BEAKER) 0.68 K/ L 0.00-1.30 (test code = 415) EOSINOPHILS ABSOLUTE COUNT 0.10 K/ L 0.00-0.50 (BEAKER) (test code = 416) BASOPHILS ABSOLUTE COUNT (BEAKER) 0.01 K/ L 0.00-0.20 (test code = 417) [id number](MANUAL DIFFERENTIAL)[id number] 13:28:00 Test Item Value Reference Range Interpretation Comments NEUTROPHILS - REL (DIFF) (BEAKER) 79 % (test code = 1359) LYMPHOCYTES - REL (DIFF) (BEAKER) 4 % (test code = 1360) MONOCYTES - REL (DIFF) (BEAKER) 2 % (test code = 1361) EOSINOPHILS - REL (DIFF) (BEAKER) 2 % (test code = 1362) BANDS - REL (DIFF) (BEAKER) (test 13 % 0-10 H code = 1348) NEUTROPHILS - ABS (DIFF) (BEAKER) 17.62 K/ L 1.80-8.00 H (test code = 1365) LYMPHOCYTES - ABS (DIFF) (BEAKER) 0.89 K/ L 1.48-4.50 L (test code = 1366) MONOCYTES - ABS (DIFF) (BEAKER) 0.45 K/ L 0.00-1.30 (test code = 1367) EOSINOPHILS - ABS (DIFF) (BEAKER) 0.45 K/ L 0.00-0.50 (test code = 1368) BANDS-ABS (DIFF) (BEAKER) (test 2.9 K/ L 0.0-0.8 H code = 1349) TOTAL COUNTED (BEAKER) (test code 100 = 1351) BANDS + SEGMENTED NEUTROPHILS 20.52 (BEAKER) (test code = 1352) WBC MORPHOLOGY (BEAKER) (test code Normal = 487) GIANT PLATELETS (BEAKER) (test Present code = 313) ANISOCYTOSIS (BEAKER) (test code = 1+ few 961) MACROCYTES (BEAKER) (test code = 1+ few 964) BASIC METABOLIC [id number] 05:23:00 Test Item Value Reference Range Interpretation Comments SODIUM (BEAKER) 138 meq/L 136-145 (test code = 381) POTASSIUM (BEAKER) 3.2 meq/L 3.5-5.1 L (test code = 379) CHLORIDE (BEAKER) 105 meq/L 98-107 (test code = 382) CO2 (BEAKER) (test 22 meq/L 22-29 code = 355) BLOOD UREA NITROGEN 28 mg/dL 7-21 H (BEAKER) (test code = 354) CREATININE (BEAKER) 2.04 mg/dL 0.57-1.25 H (test code = 358) GLUCOSE RANDOM 118 mg/dL 70-105 H (BEAKER) (test code = 652) CALCIUM (BEAKER) 8.3 mg/dL 8.4-10.2 L (test code = 697) EGFR (BEAKER) (test 25 mL/min/1.73 ESTIMA MICHELL GFR IS code = 1092) sq m NOT ACCURATE CREATININE CLEARANCE IN PREDICTING GLOMERULAR FILTRATION RATE . ESTIMATED GFR I S NOT APPLICABLE FOR DIALYSIS PATIEN TS. HEMOGLOBIN [id number] 21:29:00 Test Item Value Reference Range Interpretation Comments HEMOGLOBIN A1C (BEAKER) (test code = 5.2 % 4.3-6.1 368) CBC W/PLT COUNT & AUTO [id number] 19:42:00 Test Item Value Reference Range Interpretation Comments WHITE BLOOD CELL COUNT (BEAKER) 27.6 K/ L 4.0-10.0 H (test code = 775) RED BLOOD CELL COUNT (BEAKER) 4.01 M/ L 4.00-5.00 (test code = 761) HEMOGLOBIN (BEAKER) (test code = 11.5 GM/DL 12.0-15.0 L 410) HEMATOCRIT (BEAKER) (test code = 35.2 % 36.0-45.0 L 411) MEAN CORPUSCULAR VOLUME (BEAKER) 87.7 fL 82.0-99.0 (test code = 753) MEAN CORPUSCULAR HEMOGLOBIN 28.8 pg 27.0-33.0 (BEAKER) (test code = 751) MEAN CORPUSCULAR HEMOGLOBIN CONC 32.8 GM/DL 32.0-36.0 (BEAKER) (test code = 752) RED CELL DISTRIBUTION WIDTH 15.9 % 10.3-14.2 H (BEAKER) (test code = 412) PLATELET COUNT (BEAKER) (test 221 K/CU MM 150-430 code = 756) MEAN PLATELET VOLUME (BEAKER) 8.4 fL 6.5-10.5 (test code = 754) NUCLEATED RED BLOOD CELLS 0 /100 WBC 0-0 (BEAKER) (test code = 413) (MANUAL DIFFERENTIAL)2017-05-30 19:42:00 Test Item Value Reference Range Interpretation Comments NEUTROPHILS - REL (DIFF) (BEAKER) 70 % (test code = 1359) LYMPHOCYTES - REL (DIFF) (BEAKER) 2 % (test code = 1360) MONOCYTES - REL (DIFF) (BEAKER) 3 % (test code = 1361) BANDS - REL (DIFF) (BEAKER) (test 25 % 0-10 H code = 1348) NEUTROPHILS - ABS (DIFF) (BEAKER) 19.32 K/ L 1.80-8.00 H (test code = 1365) LYMPHOCYTES - ABS (DIFF) (BEAKER) 0.55 K/ L 1.48-4.50 L (test code = 1366) MONOCYTES - ABS (DIFF) (BEAKER) 0.83 K/ L 0.00-1.30 (test code = 1367) BANDS-ABS (DIFF) (BEAKER) (test 6.9 K/ L 0.0-0.8 H code = 1349) TOTAL COUNTED (BEAKER) (test code 100 = 1351) BANDS + SEGMENTED NEUTROPHILS 26.22 (BEAKER) (test code = 1352) WBC MORPHOLOGY (BEAKER) (test code Normal = 487) PLT MORPHOLOGY (BEAKER) (test code Normal = 486) RBC MORPHOLOGY (BEAKER) (test code Normal = 762) URINALYSIS W/ [id number] 19:13:00 Test Item Value Reference Range Interpretation Comments COLOR (BEAKER) (test code = 470) Yellow CLARITY (BEAKER) (test code = 469) Hazy SPECIFIC GRAVITY UA (BEAKER) (test 1.029 1.001-1.035 code = 468) PH UA (BEAKER) (test code = 467) 6.0 5.0-8.0 PROTEIN UA (BEAKER) (test code = 100 mg/dL Negative A 464) GLUCOSE UA (BEAKER) (test code = Negative Negative 365) KETONES UA (BEAKER) (test code = Negative Negative 371) BILIRUBIN UA (BEAKER) (test code = Negative Negative 462) BLOOD UA (BEAKER) (test code = 461) Small Negative A NITRITE UA (BEAKER) (test code = Negative Negative 465) LEUKOCYTE ESTERASE UA (BEAKER) Large Negative A (test code = 466) UROBILINOGEN UA (BEAKER) (test code 0.2 mg/dL 0.2-1.0 = 463) RBC UA (BEAKER) (test code = 519) 6 /HPF WBC UA (BEAKER) (test code = 520) > /HPF SQUAMOUS EPITHELIAL (BEAKER) (test 6 /HPF code = 516) SOURCE(BEAKER) (test code = 2795) TSH/FREE T4 IF [id number] 18:48:00 Test Item Value Reference Range Interpretation Comments THYROID STIMULATING HORMONE 0.80 uIU/mL 0.35-4.94 (BEAKER) (test code = 772) [id number] 18:48:00 Test Item Value Reference Range Interpretation Comments FERRITIN (BEAKER) (test code = 361) 159 ng/mL 5-275 Effective 10/18/2014: Reference Range ChangeNew: Male 5-275 Previous: Male 22-322 Female 5-275 Female 10-291IRON, TIBC, % SAT. (WITHOUT FERRITIN)2017-05-30 18:35:00 Test Item Value Reference Range Interpretation Comments IRON (BEAKER) (test code = 547) 10 ug/dL 40-160 L TOTAL IRON BINDING CAPACITY 213 ug/dL 250-450 L (BEAKER) (test code = 769) IRON % SATURATION (2) (BEAKER) 5 % 20-55 L (test code = 2599) B-TYPE NATRIURETIC FACTOR (BNP)2017-05-30 18:34:00 Test Item Value Reference Range Interpretation Comments B-TYPE NATRIURETIC PEPTIDE (BEAKER) 220 pg/mL 0-100 H (test code = 700) [id number] 18:33:00 Test Item Value Reference Range Interpretation Comments MAGNESIUM (BEAKER) (test code = 1.1 mg/dL 1.6-2.6 L 627) BASIC METABOLIC [id number] 18:33:00 Test Item Value Reference Range Interpretation Comments SODIUM (BEAKER) 138 meq/L 136-145 (test code = 381) POTASSIUM (BEAKER) 3.3 meq/L 3.5-5.1 L (test code = 379) CHLORIDE (BEAKER) 104 meq/L 98-107 (test code = 382) CO2 (BEAKER) (test 23 meq/L 22-29 code = 355) BLOOD UREA NITROGEN 19 mg/dL 7-21 (BEAKER) (test code = 354) CREATININE (BEAKER) 1.48 mg/dL 0.57-1.25 H (test code = 358) GLUCOSE RANDOM 101 mg/dL 70-105 (BEAKER) (test code = 652) CALCIUM (BEAKER) 8.9 mg/dL 8.4-10.2 (test code = 697) EGFR (BEAKER) (test 37 mL/min/1.73 ESTIMA MICHELL GFR IS code = 1092) sq m NOT ACCURATE CREATININE CLEARANCE IN PREDICTING GLOMERULAR FILTRATION RATE . ESTIMATED GFR I S NOT APPLICABLE FOR DIALYSIS PATIEN TS. LIPID [id number] 18:33:00 Test Item Value Reference Range Interpretation Comments TRIGLYCERIDES (BEAKER) (test code = 108 mg/dL 540) CHOLESTEROL (BEAKER) (test code = 103 mg/dL 631) HDL CHOLESTEROL (BEAKER) (test code 43 mg/dL = 976) LDL CHOLESTEROL CALCULATED (BEAKER) 38 mg/dL (test code = 633) Triglyceride Reference Range: Low Risk <150 Borderline 150-199 High Risk 200-499 Very High Risk >=500Cholesterol Reference Range: Low Risk <200 Borderline 200-239 High Risk >240HDL Cholesterol Reference Range: Low Risk >=60 High Risk <40LDL Cholesterol Reference Range: Optimal <100 Near Optimal 100-129 Borderline 130-159 High 160-189 Very High >=190HEPATIC FUNCTION [id number] 18:33:00 Test Item Value Reference Range Interpretation Comments TOTAL PROTEIN (BEAKER) (test code = 6.5 gm/dL 6.0-8.3 770) ALBUMIN (BEAKER) (test code = 1145) 3.4 g/dL 3.5-5.0 L BILIRUBIN TOTAL (BEAKER) (test code 0.9 mg/dL 0.2-1.2 = 377) BILIRUBIN DIRECT (BEAKER) (test 0.5 mg/dL 0.1-0.5 code = 706) ALKALINE PHOSPHATASE (BEAKER) (test 90 U/L 40-150 code = 346) AST (SGOT) (BEAKER) (test code = 33 U/L 5-34 353) ALT (SGPT) (BEAKER) (test code = 32 U/L 6-55 347) [id number] 18:29:00 Test Item Value Reference Range Interpretation Comments PROTIME (BEAKER) (test code = 16.5 seconds 11.7-14.7 H 759) INR (BEAKER) (test code = 370) 1.3 <=5.9 PARTIAL THROMBOPLASTIN TIME 38.7 seconds 22.5-36.0 H (BEAKER) (test code = 760) RECOMMENDED COUMADIN/WARFARIN INR THERAPY RANGESSTANDARD DOSE: 2.0 - 3.0 Includes: PROPHYLAXIS forvenous thrombosis, systemic embolization; TREATMENT for venous thrombosis and/or pulmonary embolus.HIGH RISK: Target INR is 2.5-3.5 for patients with mechanical heart valves.NM [facility] Pt Name: DIASNICHELLE Mohamud [employer] Phys: [place] [address] : 1965 Age: 54 SEX:F [phone] Exam Date: 03/09/20 Status: REG [facility] Acct: [id number] Loc: [facility] Pt Unit #: [id number] Report #: [id number] CC: Ras Velez MD NUCLEAR MEDICINE REPORT Order # Category/Exam [id number] NM/NM Lymphoscint igraphy ([id number]): . Results Lymphoscintigraphy right breast HISTORY: Right breast cancer. FINDINGS: After spine procedure and answering all questions, the anterior aspect of the right breast was prepped. Clean technique was used to carefully injected a total of 1 cc liquid containing 431 uCi technetium 99 and filtered sulfur colloid into the deep skin tissues at the 12:00, 3:00, 6:00, and 9:00 periareolar positions of the right breast. Injection sites were massaged by the patient and imaging performed. Immediate images show increased radiotracer and a focal area at the axillary tail of the right breast. Patient was sent to day surgery in good condition. IMPRESSION : Technically successful lymphoscintigraphy right breast revealing single sentinel lymph node at the axillary tail/axilla. Reported By: Marco A Schwarz MD Electronically Signed Date/Time: 03/09/20954 Technologist: MOSES Dictated Date/Time: 03/09/20949 Transcribed Date/Time:US Breast [facility]x [facility] Pt Name: NICHELLE DIAS [address] [facility]. Phys: [place] [address] : 1965 Age: 54 SEX:F [phone] Exam Date: 01/07/20 Status: REG REF Acct: [id number] Loc: BICULT Pt Unit #: [id number] Report #: [id number] CC: Sayra Rudd MD ULTRASOUND REPORT Order # Category/Exam [id number] MMO/MAMMO Unilat Diag DDI RT ([id number]):. [id number] ULT/US Breast Bx US Guided ([id number]): . Results ULTRASOUND GUIDED RIGHT BREAST BIOPSY: Date: 01/07/2020 PROVIDED CLINICAL HISTORY: Right breast mass. FINDINGS: Correlation is made with the breast ultrasound of 12/30/2019 and diagnostic mammogram of 12/30/2019. Informed consent was obtained from the patient. The patient was placed on the sonography table in the supine position and the 1 o'clock right breast mass was localized sonographically. The skin overlying this region was prepped and draped in the usual sterile manner. The soft tissues were infiltrated with 1% buffered lidocaine. Under continuous sonographic guidance, four core samples were o btained of the lesion. Subsequently, under continuous ultrasound guidance, a biopsy clip deployment device was utilized to deploy a biopsy clip within the mass. Murdock were withdrawn and hemostasis achieved. No immediate complications. The post biopsy mammograms demonstrated appropriate clip deployment. IMPRESSION: Technically successful ultrasound guided right breast biopsy. Correlate with histology results to follow. POS: OFF Reported By: Jhonny Graves MD Electronically Signed Date/Time: 01/07/20 1504 Technologist: REX; VIVIAN Dictated Date/Time: 01/07/20 1331 Transcribed Date/Time: 01/07/20 1454US [facility] Pt Name: NICHELLE DIAS [facility]. Phys: [place] [address] : 1965 Age: 54 SEX:F [phone] Exam Date: 01/07/20 Status: REG REF Acct: [id number] Loc: BICULT Pt Unit #: [id number] Report #: [id number] CC: Sayra Rudd MD ULTRASOUND REPORT Order # Category/Exam [id number] MMO/MAMMO Unilat Diag DDI RT ([id number]):. [id number] ULT/US Breast Bx US Guided ([id number]): . Results ADDENDUM ADDENDUM: Histology results have become available, indicating invasive mammary carcinoma. Surgical consultation is recommended. POS: OFF Addendum Dictated By: Jhonny Graves MD Addendum Electronically Signed Date/Time: 01/11/20 1430 Technologist: REX; VIVIAN Dictated Ronny e/Time: 01/11/2010/20/1353 Transcribed Date/Time: 01/11/2010/20/1414 Glass Beveller: MEHRAN CC: Sayra Rudd MD ULTRASOUND GUIDED RIGHT BREAST BIOPSY: Date: 01/07/2020 PROVIDED CLINICALHISTORY: Right breast mass. FINDINGS: Correlation is made with the breast ultrasound of 12/30/2019 and diagnostic mammogram of 12/30/2019. Informed consent was obtained from the patient. The patient was placed on the sonography table in the supine position and the 1 o'clock right breast mass was localized sonographically. The skin overlying this region was prepped and draped in the usual sterile manner. The soft tissues were infiltrated with 1% buffered lidocaine. Under continuous sonog raphic guidance, four core samples were obtained of the lesion. Subsequently, under continuous ultrasound guidance, a biopsy clip deployment device was utilized to deploy a biopsy clip within the mass.Murdock were withdrawn and hemostasis achieved. No immediate complications. The post biopsy mammograms demonstrated appropriate clip deployment. IMPRESSION: Technically successful ultrasound guided right breast biopsy. Correlate with histology results to follow. POS: OFF Reported By: Jhonny Graves MD Electronically Signed Date/Time: 01/07/20 1504 Technologist: REX; VIVIAN Dictated Date/Time: 01/07/20 1331 Transcribed Date/Time: 01/07/20 1454MAMMO Bilat Diag [facility] Pt Name: NICHELLE DIAS [facility]. Phys: [place] [address] : 1965 Age: 54 SEX:F [phone] Exam Date: 12/30/19 Status: REG REF Acct: [id number] Loc: BICMAMMO Pt Unit #: [id number] Report #: [id number] CC: Sayra Rudd MD MAMMOGRAPHY REPORT Order # Category/Exam [id number] MMO/MAMMO Bilat Diag DDI+ERON ([id number]): . Results 5 Bilateral MAMMO Bilat Diag DDI+ERON. CLINICAL HISTORY: Patient is 54years old and is seen for diagnostic exam. The patient has no family history of breast cancer. The patient has no personal history of cancer. VIEWS: The views performed were: bilateral craniocaudal with tomosynthesis; bilateral mediolateral oblique with tomosynthesis; and bilateral mediolateral with tomosynthesis. FILMS COMPARED: The present examination has been compared to prior imaging studies performed at [facility] on 12/30/2019, and at [facility] Radiology on 11/01/2011 and 11/07/2011. This study has been interpreted with the assistance of comput er-aided detection. MAMMOGRAM FINDINGS: The breasts are heterogeneously dense, which could obscure a lesion on mammography. Finding 1: There is a stable oval mass measuring 14 x 22 mm with circumscribed margins seen in the lower-inner region of the right breast. Finding 2: There is a new irregular mass measuring 14 x 23 x 27 mm with spiculated margins seen in the middle region of the right breast at 1 o'clock. Solid irregular mass on ultrasound. Finding 3: There are stable benign appearing calcifications seen in both breasts. IMPRESSION: FINDING 1: STABLE MASS IN THE LOWER- INNER REGION OF THE RIGHT BREAST IS BENIGN. FINDING 2: NEW MASS IN THE MIDDLE REGION OF THE RIGHT BREAST AT 1 O'CLOCK IS HIGHLY SUGGESTIVE OF MALIGNANCY. AN ULTRASOUND-GUIDED BREAST BIOPSY IS RECOMMENDED. FINDING 3: STABLE CALCIFICATIONS IN BOTH BREASTS ARE BENIGN. THE RESULTS OF THIS EXAM WERE SENT TO THE PATIENT. ACR BI-RADS Category 5 - Highly suggestive of malignancy - appropriate action should be taken MAMMOGRAPHY NOTE: 1. A negative mammogram report should not delay a biopsy if a dominant of clinically suspicious mass is present. 2. Approximately 10% to 15% of breast cancers are not detected by mammography. 3. Adenosis and dense breasts may obscure an underlying neoplasm. Reported by: SHAR BELL MD Electonically Signed: [id number] Reported By: Nikita Bell MD Electronically Signed Date/Time: 12/30/19 1609 Technologist: Dictated Date/Time: 12/30/19 Transcribed Date/Time: 12/30/19MAMMO Bilat Diag DDI+[facility] Pt Name: NICHELLE DIAS [address] [place] [address]. Phys: [place] [address] : 1965 Age: 54 SEX:F [phone] Exam Date: 12/30/19 Status: REG REF Acct: [id number] Loc: [facility] Pt Unit #: [id number] Report #: [id number] CC: Sayra Rudd MD MAMMOGRAPHY REPORT Order # Category/Exam [id number] MMO/MAMMO Bilat Diag DDI+ERON ([id number]): . Results 5 Bilateral MAMMO Bilat Diag DDI+ERON. CLINICAL HISTORY: Patient is 54years old and is seen for diagnostic exam. The patient has no family history of breast cancer. The patient has no personal history of cancer. VIEWS: The views performed were: bilateral craniocaudal with tomosynthesis; bilateral mediolateral oblique with tomosynthesis; and bilateral mediolateral with tomosynthesis. FILMS COMPARED: The present examination has been compared to prior imaging studies performed at [facility] on 12/30/2019, and at [facility] Radiology on 11/01/2011 and 11/07/2011. This study has been interpreted with the assistance of computer-aided detection. MAMMOGRAM FINDINGS: The breasts are heterogeneously dense, which could obscure a lesion on mammography. Finding 1: There is a stable oval mass measuring 14 x 22 mm with circumscribed margins seen in the lower-inner region of the right breast. Finding 2: There is a new irregular mass measuring 14 x 23 x 27 mm with spiculated margins seen in the middle region of the right breast at 1 o'clock. Solid irregular mass on ultrasound. Finding 3: There are stable benign appearing calcifications seen in both breasts. IMPRESSION: FINDING 1: STABLE MASS IN THE LOWER-INNER REGION OF THE RIGHT BREAST IS BENIGN. FINDING 2: NEW MASS IN THE MIDDLE REGION OF THE RIGHT BREAST AT 1 O'CLOCK IS HIGHLY SUGGESTIVE OF MALIGNANCY. AN ULTRASOUND-GUIDED BREAST BIOPSY IS RECOMMENDED. FINDING 3: STABLE CALCIFICATIONS IN BOTH BREASTS ARE BENIGN. THE RESULTS OF THIS EXAM WERE SENT TO THE PATIENT. ACR BI-RADS Category 5 - Highly suggestive of malignancy - appropriate action should be taken MAMMOGRAPHY NOTE: 1. A negative mammogram report should not delay a biopsy if a dominant of clinically suspicious mass is present. 2. Approximately 10% to 15% of breast cancers are not detected by mammography. 3. Adenosis and dense breasts may obscure an underlying neoplasm. Reported by: SHAR BELL MD Electonically Signed: [id number] Reported By: Nikita Bell MD Electronically Signed Date/Time: 12/30/19 1609 Technologist: Dictated Date/Time: 12/30/19 Transcribed Date/Time: 12/30/19 [facility] Pt Name: N[facility]LE DIAS [address]. Phys: [place] [address] : 1965 Age: 54 SEX:F [phone] Exam Date: 12/30/19 Status: REG REF Acct: [id number] Loc: BICK[facility] Pt Unit #: [id number] Report #: [id number] CC: Sayra Rudd MD ULTRASOUND REPORT Order # Category/Exam [id number] ULT/US Breast Limited Rt ([id number]): . Results 5 EXAM: RIGHT BREAST ULTRASOUND: 12/30/19 HISTORY: Patient presents witha palpable finding in the right breast at 1 o'clock 5 cm from the nipple. In this region, there is letty poorly circumscribed spiculated solid mass measuring approximately 1.5 x 2 x 2.2 cm, very worrisome for a breast malignancy. This corresponds to the abnormality on the diagnostic mammogram.IMPRESSION: Large poorly circumscribed spiculated solid mass in the right breast 1 o'clock 5 cm fr om the nipple highly suggestive of malignancy. BIRADS 5: Highly Suggestive of Malignancy - Appropriate Action Should Be Taken Requires biopsy or surgical treatment Follow-up right breast ultrasound guided biopsy is recommended. These findings were discussed with the patient. Thepatient was scheduled for a right breast ultrasound guided biopsy and Dr. Rudd's office was notified. POS: OFF Reported By: Nikita Bell MD Electronically Signed Date/Time: 12/30/19 1726 Technologist: MARILU Dictated Date/Time: 12/30/19 1641 Transcribed Date/Time: 12/30/19 1645
[2021-10-19 10:33] LABS: Absolute Lymphocytes (CBC) 0.9 K/uL (0.7-4.9); Basophils % 0.4 % (0-1.3); Hematocrit 37.1 % (36.0-45.0); Lymphocytes % 11.3 % (15.3-44.8); MPV 8.8 fL (7.6-11.3); RBC Red Blood Cell Count 4.43 M/uL (3.86-4.86)
[2021-10-19 10:38] LABS: Protime INR 1.06
[2021-10-19] MEDS ORDERED: PROMETHAZINE INJ 25 MG/ML AMP ONE ×2 (10:44→12:09)
[2021-10-19] MEDS ORDERED: KETOROLAC 30 MG/ML INJ ONE (10:45)
[2021-10-19] MEDS ORDERED: NA CHLORIDE 0.9% 1,000 ML ONE (10:45)
[2021-10-19 11:01] LABS: Albumin 3.5 g/dL (3.4-5.0); Bilirubin Direct 0.1 mg/dL (0-0.2); Bilirubin Total 0.5 mg/dL (0.2-1.0); Magnesium 2.1 mg/dL (1.8-2.4); Protein, Total 7.4 g/dL (6.4-8.2); Troponin (Emerg Dept Use Only) 0.02 ng/mL (0.0-0.045)
[2021-10-19 11:03] LABS: Potassium 2.8 mmol/L (3.5-5.1)
--- NOTE | 2021-10-19 12:19 | RAD REPORT ---
EXAM DESCRIPTION: RAD - Chest Single View - 10/19/2021 11:52 am CLINICAL HISTORY: Tachycardia COMPARISON: Chest Single View dated 05/30/2017; CHEST SINGLE VIEW dated 12/13/2015 FINDINGS: Lines: None. Lungs: No evidence of edema or pneumonia. Pleural: No significant pleural effusions or pneumothorax. Cardiac: The heart size is within normal limits. Bones: No acute fractures. Other: IMPRESSION: No acute cardiopulmonary disease.
--- NOTE | 2021-10-19 12:57 | RAD REPORT ---
EXAM DESCRIPTION: CT - Head Brain Wo Cont - 10/19/2021 12:25 pm CLINICAL HISTORY: Headache COMPARISON: None. TECHNIQUE: Computed axial tomography of the head was obtained. IV contrast was not requested. All CT scans are performed using dose optimization technique as appropriate and may include automated exposure control or mA/KV adjustment according to patient size. FINDINGS: An intracranial bleed is not seen . The ventricles are normal in caliber. No extra-axial fluid collection is noted. Fluid within the sinuses/ mastoids is not seen. IMPRESSION: No acute intracranial abnormality is seen. If patient's symptoms persist MRI of the bra in would be recommended.
[2021-10-19] MEDS ORDERED: POTASSIUM CL SA 10 MEQ TAB PO ONE (13:06)
[2021-10-19] MEDS ORDERED: MORPHINE 4 MG/ML SYR ONE (13:47)
--- NOTE | 2021-10-19 14:14 | EDPHYS ---
Physician Documentation [facility] Name: Nichelle Dias Age: 55 yrs Sex: Female : 1965 Arrival Date: 10/19/2021 Time: 09:43 Bed 18 Private MD: ED Physician Esteban Conley HPI: 10/19 10:51 This 55 yrs old Female presents to ER via Ambulatory with complaints of High kdr Blood Pressure, Diarrhea. 10:52 Patient presents to the ED complaining of generalized frontal headache. She indicated kdr that the pain started gradually yesterday. She has not had a headache like this before. She states that her primary concern is her headache though she is afraid to be vomiting as well. She is also had a couple episodes of diarrhea.. Onset: The symptoms/episode began/occurred gradually, yesterday. Severity of symptoms: At their worst the symptoms were mild in the emergency department the symptoms are unchanged. The patient has not experienced similar symptoms in the past. The patient has not recently seen a physician. 10:52 The patient was noted at her doctor's office yesterday to have high blood pressure with kdr a systolic in the 190s. 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 At that time she took her blood pressure and it was over 200 systolic. She took another one of her lisinopril. Currently her blood pressure is noted to be 137/86. Her pulse is 100. She otherwise appears stable. Historical: - Allergies: 09:55 No Known Allergies; ss - PMHx: 09:55 Arthritis; Bipolar disorder; Depression; Hypertension; Kidney stones; ss - Immunization history:: Client reports receiving the 2nd dose of the Covid vaccine. - Social history:: Smoking status: Patient denies any tobacco usage or history of. ROS: 17:00 Constitutional: Negative for fever, chills, and weight loss, Eyes: Negative for injury, kdr pain, redness, and discharge, ENT: Negative for injury, pain, and discharge, Neck: Negative for injury, pain, and swelling, Cardiovascular: Negative for chest pain, palpitations, and edema, Respiratory: Negative for shortness of breath, cough, wheezing, and pleuritic chest pain, Back: Negative for injury and pain, : Negative for injury, bleeding, discharge, and swelling, MS/Extremity: Negative for injury and deformity, Skin: Negative for injury, rash, and discoloration, Psych: Negative for depression, anxiety, suicide ideation, homicidal ideation, and hallucinations, Allergy/Immunology: Negative for hives, rash, and allergies, Endocrine: Negative for neck swelling, polydipsia, polyuria, polyphagia, and marked weight changes, Hematologic/Lymphatic: Negative for swollen nodes, abnormal bleeding, and unusual bruising. 17:00 Abdomen/GI: Positive for nausea and vomiting, nausea, vomiting, and diarrhea, Negative for abdominal pain, abdominal cramps, abdominal distension, anorexia, black/tarry stool, rectal pain, rectal bleeding. 17:00 Neuro: Positive for headache, weakness, Not worst headache of her life. Exam: 17:00 Constitutional: This is a well developed, well nourished patient who is awake, alert, kdr and in mild to moderate distress. Head/Face: Normocephalic, atraumatic. Eyes: Pupils equal round and reactive to light, extra-ocular motions intact. Lids and lashes normal. Conjunctiva and sclera are non-icteric and not injected. Cornea within normal limits. Periorbital areas with no swelling, redness, or edema. Neck: Trachea midline, no thyromegaly or masses palpated, and no cervical lymphadenopathy. Supple, full range of motion without nuchal rigidity, or vertebral point tenderness. No Meningismus. Chest/axilla: Normal chest wall appearance and motion. Nontender with no deformity. No lesions are appreciated. Cardiovascular: Regular rate and rhythm with a normal S1 and S2. No gallops, murmurs, or rubs. Normal PMI, no JVD. No pulse deficits. Respiratory: Lungs have equal breath sounds bilaterally, clear to auscultation and percussion. No rales, rhonchi or wheezes noted. No increased work of breathing, no retractions or nasal flaring. Abdomen/GI: Soft, non-tender, with normal bowel sounds. No distension or tympany. No guarding or rebound. No evidence of tenderness throughout. Back: No spinal tenderness. No costovertebral tenderness. Full range of motion. Skin: Warm, dry with normal turgor. Normal color with no rashes, no lesions, and no evidence of cellulitis. MS/ Extremity: Pulses equal, no cyanosis. Neurovascular intact. Full, normal range of motion. Neuro: Awake and alert, GCS 15, oriented to person, place, time, and situation. Cranial nerves II-XII grossly intact. Motor strength 5/5 in all extremities. Sensory grossly intact. Cerebellar exam normal. Normal gait. Psych: Awake, alert, with orientation to person, place and time. Behavior, mood, and affect are within normal limits. Vital Signs: 09:53 BP 138 / 72; Pulse 114; Resp 18; Temp 98.7(TE); Pulse Ox 100% on R/A; Weight 102.06 kg; ss Height 6 ft. 0 in. (182.88 cm); Pain 8/10; 10:34 BP 137 / 86; Pulse 100; Resp 20; Pulse Ox 100% ; jh6 12:00 BP 110 / 66; Pulse 64; Resp 20; Pulse Ox 100% ; jh6 14:00 BP 138 / 82; Pulse 90; jh6 14:37 BP 130 / 84; Pulse 89; Resp 21; Pulse Ox 100% ; Pain 2/10; jh6 09:53 Body Mass Index 30.52 (102.06 kg, 182.88 cm) ss MDM: 14:14 Patient medically screened. kdr 17:00 Data reviewed: vital signs, nurses notes, lab test result(s), radiologic studies. kdr Counseling: I had a detailed discussion with the patient and/or guardian regarding: the historical points, exam findings, and any diagnostic results supporting the discharge/admit diagnosis, lab results, radiology results, the need for outpatient follow up. 10/19 10:02 Order name: Basic Metabolic Panel; Complete Time: 13: [facility] 10/19 10:02 Order name: CBC with Diff; Complete Time: 13: [facility] 10/19 10:02 Order name: LFT's; Complete Time: 13: [facility] 10/19 10:02 Order name: Magnesium; Complete Time: 13: [facility] 10/19 10:02 Order name: NT PRO-BNP; Complete Time: 13: [facility] 10/19 10:02 Order name: PT-INR; Complete Time: 13: [facility] 10/19 10:02 Order name: Troponin (emerg Dept Use Only); Complete Time: 13: [facility] 10/19 10:02 Order name: XRAY Chest (1 view); Complete Time: 13:08 [facility] 10/19 12:04 Order name: CT Head Brain wo Cont; Complete Time: 13:08 kdr 10/19 10:02 Order name: EKG; Complete Time: 10:03 kdr 10/19 10:02 Order name: Cardiac monitoring kdr 10/19 10:02 Order name: EKG - Nurse/Tech kdr 10/19 10:02 Order name: IV Saline Lock kdr 10/19 10:02 Order name: Labs collected and sent kdr 10/19 10:02 Order name: O2 Per Protocol [facility] 10/19 10:02 Order name: O2 Sat Monitoring kdr Administered Medications: 14:39 Discontinued: NS 0.9% 1000 ml IV at 1 bolus Per protocol; 1000 mL bolus 6 11:00 Drug: NS 0.9% 1000 ml Route: IV; Rate: 1 bolus; Site: left antecubital; 6 11:00 Drug: Ketorolac 15 mg Route: IVP; Site: left antecubital; 6 11:00 Drug: Phenergan (promethazine) 12.5 mg Route: IVP; Site: left antecubital; 6 12:10 Drug: Phenergan (promethazine) 12.5 mg Route: IVP; Site: left antecubital; 6 13:17 Follow up: Response: Marked relief of symptoms 6 13:55 Drug: morphine 4 mg Route: IVP; Site: right forearm; 6 14:13 Follow up: Response: Pain is decreased 6 14:38 Follow up: Response: Pain is decreased [facility] Disposition Summary: 10/19/21 14:14 Discharge Ordered Location: Home kdr Problem: new kdr Symptoms: are resolved kdr Condition: Stable kdr Diagnosis - Headache kdr - Tension-type headache kdr Followup: kdr - With: Private Physician - When: 2 - 3 days - Reason: If symptoms return, Further diagnostic work-up, Recheck today's complaints, Continuance of care, Re-evaluation by your physician Discharge Instructions: - General Headache Without Cause kdr - Migraine Headache, [id number] kdr - Discharge Summary Sheet [facility] Forms: - Medication Reconciliation Form kdr - Thank You Letter kdr - Work release form [facility] Prescriptions: - Benadryl 25 mg Oral Capsule - take 1 capsule by ORAL route every 8 hours As needed Take with compazine as kdr needed for headache; 30 tablet; Refills: 0, Product Selection Permitted - Compazine 10 mg Oral Tablet - take 1 tablet by ORAL route every 8 hours As needed; 10 tablet; Refills: 0, kdr Product Selection Permitted Signatures: Dispatcher [employer] Esteban Saavedra MD MD kdr Smirch, Shelby RN RN ss Tawanna Brooks RN RN jh6
--- NOTE | 2021-10-19 14:14 | ER ---
Nurse's Notes [facility] Name: Nichelle Dias Age: 55 yrs Sex: Female : 1965 Arrival Date: 10/19/2021 Time: 09:43 Bed 18 Private MD: Diagnosis: Headache;Tension-type headache Presentation: 10/19 09:53 Chief complaint: Patient states: High blood pressure that was noticed yesterday despite ss taking BP medications. Pt c/o headache that started yesterday and diarrhea that began this morning. Pt also received tetanus, flu and pneumonia vaccinations yesterday. Coronavirus screen: Client denies travel out of the [place] in the last 14 days. Ebola Screen: Patient denies exposure to infectious person. Patient denies travel to an Ebola-affected area in the 21 days before illness onset. Initial Sepsis Screen: Does the patient meet any 2 criteria? No. Patient's initial sepsis screen is negative. Does the patient have a suspected source of infection? No. Patient's initial sepsis screen is negative. Risk Assessment: Do you want to hurt yourself or someone else? Patient reports no desire to harm self or others. Onset of symptoms was October 18, 2021. 09:53 Method Of Arrival: Ambulatory ss 09:53 Acuity: DESIREE 3 ss Historical: - Allergies: 09:55 No Known Allergies; ss - PMHx: 09:55 Arthritis; Bipolar disorder; Depression; Hypertension; Kidney stones; ss - Immunization history:: Client reports receiving the 2nd dose of the Covid vaccine. - Social history:: Smoking status: Patient denies any tobacco usage or history of. Screenin:35 Abuse screen: Denies threats or abuse. Nutritional screening: No deficits noted. jh6 Tuberculosis screening: No symptoms or risk factors identified. Fall Risk None identified. Assessment: 10:32 General: Appears uncomfortable, Behavior is cooperative, restless. Pain: Complains of jh6 pain in forehead, right hoahaoism and left hoahaoism Pain does not radiate. Pain currently is 10 out of 10 on a pain scale. Quality of pain is described as throbbing, Pain began 1 day ago. Is continuous, Aggravated by increased activity, Light Noted to be grimacing, Also complains of nausea, n/v/d. GI: Reports diarrhea, nausea. 12:00 GI: Reports nausea. jh6 14:10 Reassessment: Patient is alert, oriented x 3, equal unlabored respirations, skin jh6 warm/dry/pink. Patient states feeling better. Patient states symptoms have improved. Neuro: No deficits noted. Reports Headache decreased rate pain minimal. Vital Signs: 09:53 BP 138 / 72; Pulse 114; Resp 18; Temp 98.7(TE); Pulse Ox 100% on R/A; Weight 102.06 kg; ss Height 6 ft. 0 in. (182.88 cm); Pain 8/10; 10:34 BP 137 / 86; Pulse 100; Resp 20; Pulse Ox 100% ; jh6 12:00 BP 110 / 66; Pulse 64; Resp 20; Pulse Ox 100% ; jh6 14:00 BP 138 / 82; Pulse 90; jh6 14:37 BP 130 / 84; Pulse 89; Resp 21; Pulse Ox 100% ; Pain 2/10; jh6 09:53 Body Mass Index 30.52 (102.06 kg, 182.88 cm) Vitals: 10:34 Cardiac Rhythm Assessment Regular Sinus rhythm. [facility] ED Course: 09:43 Patient arrived in ED. ds1 09:49 Esteban Conley MD is Attending Physician. kdr 09:55 Triage completed. ss 09:55 Arm band placed on right wrist. ss 09:56 Tawanna Brooks, RAYMUNDO is Primary Nurse. jh6 10:35 Initial lab(s) drawn, by wy, sent to lab. Inserted saline lock: 20 gauge in left [facility] antecubital area, using aseptic technique. 10:36 Placed in gown. Bed in low position. Call light in reach. Side rails up X 1. jh6 11:52 XRAY Chest (1 view) In Process Unspecified. EDMS 12:26 CT Head Brain wo Cont In Process Unspecified. EDMS 12:28 X-ray(s) taken. 6 14:37 IV discontinued, intact, bleeding controlled, No redness/swelling at site. Pressure 6 dressing applied. 14:37 No provider procedures requiring assistance completed. 6 Administered Medications: 14:39 Discontinued: NS 0.9% 1000 ml IV at 1 bolus Per protocol; 1000 mL bolus jh6 11:00 Drug: NS 0.9% 1000 ml Route: IV; Rate: 1 bolus; Site: left antecubital; jh6 11:00 Drug: Ketorolac 15 mg Route: IVP; Site: left antecubital; 6 11:00 Drug: Phenergan (promethazine) 12.5 mg Route: IVP; Site: left antecubital; 6 12:10 Drug: Phenergan (promethazine) 12.5 mg Route: IVP; Site: left antecubital; 6 13:17 Follow up: Response: Marked relief of symptoms [facility] 13:55 Drug: morphine 4 mg Route: IVP; Site: right forearm; 6 14:13 Follow up: Response: Pain is decreased [facility] 14:38 Follow up: Response: Pain is decreased [facility] Outcome: 14:14 Discharge ordered by . mikki 14:37 Discharged to home ambulatory. [facility] 14:37 Condition: improved 14:37 Demonstrated understanding of instructions, follow-up care, medications, Prescriptions given X 2. 14:39 Patient left the ED. 6 Signatures: Dispatcher [employer] EDMS Esteban Conley MD MD [facility] Rocio Guevara ds1 Catalina Lauren RN RN Tawanna Brooks RN RN jh6
[2021-10-19 14:43] VITALS: TEMP 98.7; O2SAT 100
[2021-10-19 14:49] VITALS: BP 130/84
--- NOTE | 2021-10-24 08:20 | EKG ---
Test Date: 2021-10-19 Test Time: 10:13:00 Automatic Glove Former: DHRUV MEASUREMENT RESULTS: Intervals: Rate: 103 ME: 172 QRSD: 84 QT: 332 QTc: 434 [place]: P: 64 ME: 172 QRS: 63 T: 54 INTERPRETIVE STATEMENTS: Sinus tachycardia Otherwise normal ECG Compared to ECG 05/30/2017 08:04:20 No significant changes Electronically Signed On 10-24-21 08:05:14 EVENTS ADMINISTRATIVE ASSISTANT by Wes North
== END 2021-10-19 14:39 | disposition home or self-care (01) ==
LOC: ER 09:42
DX: G44.209 Tension-type headache, unspecified, not intractable (principal); I10 Essential (primary) hypertension
CPT/HCPCS: 93005; 85025; 80048; 36415; 83735; 85610; 80076; 84484; 83880; 70450; 71045; 99284; J2550 ×2; J7030